=== PATIENT | female | born 1945 | race Caucasian/White ===

== ENCOUNTER 2016-04-30 00:06 | Inpatient (IN) | payer MEDICARE, MEDICAID ==
[~2016-04-30] VITALS: Ht 160 cm; Wt 69.5 kg
[2016-04-30] VITALS (12 sets, daily range): BP systolic 110–152; BP diastolic 60–74; PULSE 67–84; RESP 17–18; TEMP 95.2–98.4; O2SAT 92–100
[~2016-04-30 00:06] MED LIST: ATOR20TA15 PO; BENA25CA2 PO; CALC1TAB87 PO; CHOL50008 PO; FURO1TAB62 PO; OMEP20CA2 PO; POTA10TA2 PO; folate
[2016-04-30] MEDS ORDERED: FOLI1TAB4 PO (00:20)
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
[2016-04-30] MEDS ORDERED: ONDANSETRON HCL 4 MG/2 ML VIAL IV PUSH ONE ×2 (00:30→12:00)
[2016-04-30] MEDS ORDERED: SODIUM CHLOR 0.9% 1000 ML INJ 1,000 ML IV SCH (00:30)
[2016-04-30] MEDS ORDERED: MORPHINE SULFATE 4 MG/ML INJ IV PUSH ONE ×2 (00:30→02:00)
[2016-04-30 01:00] LABS: BASOPHIL # 0.1 TH/MM3 (0-0.2); BASOPHIL % 0.4 % (0.0-2.0); EOSINOPHIL # 0.1 TH/MM3 (0-0.4); EOSINOPHIL % 0.5 % (0.0-4.0); HEMATOCRIT 39.3 % (35.0-46.0); HEMO FLAGS DIFF FINAL; LYMPH % 5.9 % (9.0-44.0); MEAN CELL VOLUME 81.6 FL (80.0-100.0); MEAN CORPUSCULAR HEMOGLOBIN 28.3 PG (27.0-34.0); MEAN CORPUSCULAR HGB CONC 34.7 % (32.0-36.0); MONO % 5.3 % (0.0-8.0); NEUT % 87.9 % (16.0-70.0); PLATELET COUNT 244 TH/MM3 (150-450); RED BLOOD COUNT 4.82 MIL/MM3 (4.00-5.30); RED CELL DISTRIBUTION WIDTH 15.8 % (11.6-17.2); WHITE BLOOD COUNT 17.1 TH/MM3 (4.0-11.0)
[2016-04-30 01:07] LABS: APTT (PATIENT) 26.4 SEC (24.3-30.1); INTERNATIONAL NORMALIZED RATIO 0.9 RATIO; PROTHROMBIN TIME - PATIENT 9.9 SEC (9.8-11.6)
[2016-04-30 01:09] LABS: BICARBONATE 22.6 MEQ/L (21.0-32.0); MAGNESIUM 1.9 MG/DL (1.5-2.5); POTASSIUM 3.7 MEQ/L (3.5-5.1)
--- NOTE | 2016-04-30 01:24 | RADRPT ---
EXAM DATE/TIME: 04/30/2016 00:48 [facility] COMPARISON: CT NEEDLE BIOPSY LUNG, RIGHT, October 31, 2014, 11:45. CT NEEDLE BIOPSY BONE MARROW, November 22, 2014, 11: 13. CHEST SINGLE AP, November 17, 2014, 20:00. INDICATIONS : Shortness of breath. MEDICAL HISTORY : Hypercholesterolemia. Chronic obstructive pulmonary disease. Small cell right lung cancer. GERD Asth ma, Arthritis SURGICAL HISTORY : Hysterectomy. Oophorectomy ENCOUNTER: Initial ACUITY: 1 day PAIN SCORE: 0/10 LOCATION: Bilateral chest FINDINGS: A single AP supine view of the chest demonstrates the lungs to be symmetrically aerated without evide nce of infiltrate or effusion. There is stable interstitial change consistent with scarring. The prev iously noted masslike opacity in the right midlung is not significantly changed and measures approxim ately 3.5 x 3.5 cm. There are no new infiltrates or effusions. The cardiomediastinal contours are unr emarkable. Osseous structures are stable in appearance with scoliosis and mild degenerative change. CONCLUSION: 1. Focal masslike area of opacity again noted in the right midlung without significant change. 2. No new infiltrates or effusions. 3. Chronic scarring. Noe Rodas MD on April 30, 2016 at 1:20 Board Certified Radiologist. This report was verified electronically.
--- NOTE | 2016-04-30 01:27 | RADRPT ---
EXAM DATE/TIME: 04/30/2016 00:48 [facility] COMPARISON: No previous studies available for comparison. INDICATIONS : Left hip pain after fall. MEDICAL HISTORY : Hypercholesterolemia. Chronic obstructive pulmonary disease. Carcinoma, lung. Arthritis, Asthma, GERD SURGICAL HISTORY : Hysterectomy. Oophorectomy ENCOUNTER: Initial ACUITY: 1 day PAIN SCORE: 10/10 LOCATION: Left pelvis FINDINGS: AP and crosstable lateral views of the left hip were obtained and demonstrate a left subcapital hip f racture. There is mild superior migration of the femur with rotation of the humeral head component. T here is diffuse osteopenia. The pubic rami are intact. CONCLUSION: Left subcapital hip fracture. Noe Rodas MD on April 30, 2016 at 1:24 Board Certified Radiologist. This report was verified electronically.
--- NOTE | 2016-04-30 01:29 | RADRPT ---
EXAM DATE/TIME: 04/30/2016 01:00 [facility] COMPARISON: HIP LEFT (AP&LAT 2/3VWS) W AP PELVIS, April 30, 2016, 0:48. INDICATIONS : Left femur pain after fall. MEDICAL HISTORY : Hypercholesterolemia. Chronic obstructive pulmonary disease. Carcinoma, lung. GERD, Arthritis, As thma SURGICAL HISTORY : Hysterectomy. Oophorectomy ENCOUNTER: Initial ACUITY: 1 day PAIN SCORE: 10/10 LOCATION: Left femur FINDINGS: AP and lateral views of the left femur were obtained and again demonstrate the subcapital hip fractur e. The femur is otherwise intact. Soft tissues appear unremarkable. CONCLUSION: No additional bony abnormality. Noe Rodas MD on April 30, 2016 at 1:27 Board Certified Radiologist. This report was verified electronically.
[2016-04-30] MEDS ORDERED: HYDROmorphone HCL PF 1 MG/ML VIAL IV PUSH ONE (02:30)
[2016-04-30] MEDS ORDERED: ACETAMINOPHEN 325 MG TAB PO PRN (04:15)
[2016-04-30] MEDS ORDERED: SODIUM CHLORIDE 0.9% FLUSH 5 ML FLUSH FLUSH PRN (04:15)
[2016-04-30] MEDS: DOCUSATE SODIUM 100 MG CAP PO SCH ×2 (04:15→16:15)
[2016-04-30] MEDS ORDERED: BISACODYL 10 MG SUPP PR PRN (04:15)
[2016-04-30] MEDS ORDERED: RESP: ALBUTEROL 2.5 MG/IPRATROPIUM 0.5 MG NEB (PRN) NEB (04:45)
[2016-04-30] MEDS ORDERED: Vancomycin Consult Pharmacy 1 EA OTHER SCH (04:45)
[2016-04-30] MEDS ORDERED: metroNIDAZOLE 500 MG INJ 100 ML IV SCH (05:00)
[2016-04-30] MEDS: SODIUM CHLOR 0.45% 1000 ML INJ 1,000 ML IV SCH ×3 (05:02→20:24)
--- NOTE | 2016-04-30 05:05 | HHI.HP ---
[facility] Christen Mayfield MD Admission Diagnosis Left hip fracture Diagnoses: Chief Complaint: Syncope, fall, left hip pain Travel History International Travel<30 Days: No Contact w/Intl Traveler <30 Da: No Traveled to Known Affected Are: No History of Present Illness This is a 70-year-old female with past medical history significant for lung cancer status post chemotherapy and radiation therapy. Patient presents after a syncopal episode. Patient states she was getting out of her car when she stood up, felt dizzy and then fell backwards. The patient denies LOC, denies hitting her head. Apparently the patient got out of the vehicle, tender to shut the door when she lost her balance and the backwards and have any median 10 /10 over her left hip. The patient reports severe left hip pain and is unable to move it. Moving the extremity makes it worst, IV morphine given by emergency physicians improves the pain. Patient is noted to be coughing but denies fevers or chills. The patient also denies diarrhea, chest pain, shortness of breath. Patient is somewhat lethargic at the moment of interview. The patient states she feels somewhat nauseous and denied any urinary symptoms. Review of Systems Other As per history of present illness, other systems reviewed by me and negative Past Family Social History Past Medical History 1. Lung cancer status post chemotherapy and radiation therapy. 2. History of balance problems. 3. Tries weakness. 4. Hyperlipidemia. 5. Tobacco abuse. 6. Osteoarthritis. 7. Myelopathy. 8. Polymyalgia rheumatica. 9. Diminished hearing in the right ear. 10. COPD. 11. GERD. Past Surgical History 1. Partial hysterectomy. Reported Medications Lasix (Furosemide) 20 Mg Tab 20 Mg PO DAILY PRN Atorvastatin (Atorvastatin Calcium) 20 Mg Tab 20 Mg PO HS Omeprazole 20 Mg Cap 1 Cap PO DAILY Potassium Chloride ER (Potassium Chloride) 10 Meq Tab 10 Meq PO DAILY Folate (Folic Acid) 1 Mg Tab 1 Mg PO DAILY Vitamin D3 (Cholecalciferol) 5,000 Unit Tab 5,000 Units PO DAILY Calcium 600 with Vitamin D (Calcium Carbonate-Cholecalciferol) 600-400 mg-Unit Tab 1 Tab PO DAILY Allergies: Coded Allergies: Aspirin (Verified Allergy, Severe, GASTRIC UPSET, 04/30/16) Active Ordered Medications Current Medications Medications (Trade) Dose Ordered Sig/Sergey Route Start Time Stop Time Status Last Admin (05/06 NS 1000 ml Inj) 1,000 ml @ 75 mls/hr [id number] IV 04/30/16 04:01 (NS Flush) 2 ml UNSCH PRN FLUSH 04/30/16 04:15 (NS Flush) 2 ml BID FLUSH 04/30/16 09:00 (Tylenol) 650 mg Q4H PRN PO 04/30/16 04:15 (Dulcolax Supp) 10 mg DAILY PRN CA 04/30/16 04:15 (Colace) 100 mg Q12H PO 04/30/16 04:15 (Milk Of Magnesia Liq) 30 ml Q12H PRN PO 04/30/16 04:15 (Lipitor) 20 mg HS PO 04/30/16 21:00 (Protonix) 20 mg DAILY PO 04/30/16 09:00 Family History Is family history of lung cancer in the patient's mother. Social History Patient smokes one pack per day Denies alcohol Physical Exam Vital Signs Vital Signs Date Time Temp Pulse Resp B/P Pulse Ox O2 Delivery O2 Flow Rate FiO2 04/30/16 00:13 86 18 93 Room Air 04/30/16 00:10 84 18 141/71 92 Physical Exam GENERAL: This is a very thin, malnourished female. Not in respiratory distress. Very lethargic. SKIN: No rashes, ecchymoses or lesions. Warm and dry. HEAD: Atraumatic. Normocephalic. No temporal or scalp tenderness. EYES: Pupils equal round and reactive. Extraocular motions intact. No scleral icterus. No injection or drainage. ENT: Nose without bleeding, purulent drainage or septal hematoma. Throat without erythema, tonsillar hypertrophy or exudate. Uvula midline. Airway patent. NECK: Trachea midline. No JVD or lymphadenopathy. Supple, nontender, no meningeal signs. CARDIOVASCULAR: Regular rate and rhythm without murmurs, gallops, or rubs. RESPIRATORY: Clear to auscultation. Decreased breath sounds bilaterally. No wheezes, rales, or rhonchi. GASTROINTESTINAL: Abdomen soft, non-tender, nondistended. No hepato-splenomegaly , or palpable masses. No guarding. MUSCULOSKELETAL: Extremities without clubbing, cyanosis, or edema. No joint tenderness, effusion, or edema noted. No calf tenderness. Negative Homans sign bilaterally. NEUROLOGICAL: Lethargic. Difficult to assess cranial nerves, grossly intact. Motor and sensory grossly within normal limits. Five out of 5 muscle strength in all muscle groups. Normal speech. Laboratory Laboratory Tests Test 04/30/16 00:45 White Blood Count 17.1 Red Blood Count 4.82 Hemoglobin 13.7 Hematocrit 39.3 Mean Corpuscular Volume 81.6 Mean Corpuscular Hemoglobin 28.3 Mean Corpuscular Hemoglobin 34.7 Concent Red Cell Distribution Width 15.8 Platelet Count 244 Mean Platelet Volume 7.3 Neutrophils (%) (Auto) 87.9 Lymphocytes (%) (Auto) 5.9 Monocytes (%) (Auto) 5.3 Eosinophils (%) (Auto) 0.5 Basophils (%) (Auto) 0.4 Neutrophils # (Auto) 15.0 Lymphocytes # (Auto) 1.0 Monocytes # (Auto) 0.9 Eosinophils # (Auto) 0.1 Basophils # (Auto) 0.1 CBC Comment DIFF FINAL Differential Comment Prothrombin Time 9.9 Prothromb Time International 0.9 Ratio Activated Partial 26.4 Thromboplast Time Sodium Level 130 Potassium Level 3.7 Chloride Level 97 Carbon Dioxide Level 22.6 Anion Gap 10 Blood Urea Nitrogen 12 Creatinine 0.67 Estimat Glomerular Filtration 87 Rate Random Glucose 124 Calcium Level 8.9 Magnesium Level 1.9 Result Diagram: 04/30/16 0045 04/30/16 0045 Imaging Last Impressions Femur X-Ray 04/30/16 0050 Signed Impressions: Service Date/Time: Saturday, April 30, 2016 01:00 - CONCLUSION: No additional bony abnormality. Noe Rodas MD Chest X-Ray 04/30/16 0028 Signed Impressions: Service Date/Time: Saturday, April 30, 2016 00:48 - CONCLUSION: 1. Focal masslike area of opacity again noted in the right midlung without significant change. 2. No new infiltrates or effusions. 3. Chronic scarring. Noe Rodas MD Hip and Pelvis X-Ray 04/30/16 0025 Signed Impressions: Service Date/Time: Saturday, April 30, 2016 00:48 - CONCLUSION: Left subcapital hip fracture. Noe Rodas MD Chest x-ray reviewed by me EKG shows sinus rhythm with a ventricular rate of 83 bpm. No STT changes. Reviewed by me. Assessment and Plan Assessment and Plan 1. Dizziness/fall: Suspect patient has right sided pneumonia. Given the patient is returning chemotherapy possible age. Suspect orthostatic hypotension , patient is very dehydrated. EKG does not show any ST-T abnormalities. However at this time I cannot rule out other causes of syncope. I will order a 2-D echocardiogram, follow-up cardiac enzymes which were initially negative. Check cardiac ultrasound. Check CT scan of the head. Patient might need an MRI to rule out metastasis to the brain. Urinalysis negative. Hold Lasix for dehydration. 2. Encephalopathy: Patient very lethargic, continue to monitor neurological status. Encephalopathy could be secondary to IV morphine, cannot rule out metabolic encephalopathy. 3. Left subcapital hip fracture: Patient status post fall. If he physician communicated with the orthopedic surgeon sales promotion officer who requested to place the patient nothing by mouth and consult Dr. Sawyer in a.m. 4. Hyponatremia: Likely due to decreased oral intake. Hypovolemic hyponatremia. Start the patient on IV normal saline and monitor sodium. 5. Suspected pneumonia: Patient with cough, leukocytosis up to 17. Patient noted to be satting 92-93% on room air earlier today. Patient also noted to be coughing and having a wet cough. I will empirically start the patient on IV vancomycin, IV cefepime and IV Flagyl to cover H CAP and postobstructive pneumonia. I will order also a CT of the chest to better assess. 6. Hyperglycemia: Likely secondary to stress. Check hemoglobin A1c. Monitor Accu-Cheks. 7. Lung cancer: Status post recent radiation therapy. We'll consult oncology. Dr. Avila has been taking care of the patient. 8. Leukocytosis: WBC up to 17, the patient is afebrile however just x-ray shows a mass with a probable infiltrate. Monitor CBC with differential. Discussed Condition With RN, ED physician. Physician Certification 2 Midnight Certification Type: Admission for Inpatient Services Order for Inpatient Services The services are ordered in accordance with Medicare regulations or non- Medicare payer requirements, as applicable. In the case of services not specified as inpatient-only, they are appropriately provided as inpatient services in accordance with the 2-midnight benchmark. Estimated LOS (days): 2 days is the estimated time the patient will need to remain in the hospital, assuming treatment plan goals are met and no additional complications. Post-Hospital Plan: SNF Skinny Brizuela MD Apr 30, 2016 05:05
--- NOTE | 2016-04-30 05:18 | RADRPT ---
EXAM DATE/TIME: 04/30/2016 04:39 [facility] COMPARISON: CHEST SINGLE AP, April 30, 2016, 0:48. INDICATIONS : Evaluate lung mass. RADIATION DOSE: 4.39 CTDIvol (mGy) MEDICAL HISTORY : Carcinoma, lung. Chronic obstructive pulmonary disease. Asthma SURGICAL HISTORY : Hysterectomy. ENCOUNTER: Initial ACUITY: 1 day PAIN SCALE: 0/10 LOCATION: chest TECHNIQUE: Volumetric scanning of the chest was performed. Using automated exposure control and adjustment of t he mA and/or kV according to patient size, radiation dose was kept as low as reasonably achievable to obtain optimal diagnostic quality images. FINDINGS: LUNGS: The lungs are mildly hyperinflated with underlying emphysema. There is a pleural-based Mass.-like are a of dense consolidative opacity in the posterior right upper lobe. PLEURAE: There is no pleural thickening or pleural effusion. MEDIASTINUM: The heart and great vessels demonstrate no acute abnormality. There is no mediastinal or hilar lymph adenopathy. Coronary artery calcifications are present. There is a retrocardiac hiatal hernia. AXILLAE: Within normal limits. No lymphadenopathy. MUSCULOSKELETAL: Osteopenia, degenerative change and scoliosis are present. MISCELLANEOUS: The visualized upper abdominal organs demonstrate no acute abnormality. CONCLUSION: 1. Pleural-based masslike area of consolidative opacity in the posterior right upper lobe. 2. A small hiatal hernia. 3. Coronary artery calcifications. Noe Rodas MD on April 30, 2016 at 5:13 Board Certified Radiologist. This report was verified electronically.
[2016-04-30] MEDS ORDERED: HYDROmorphone HCL PF 1 MG/ML VIAL IV PUSH PRN (06:00)
[2016-04-30] MEDS ORDERED: MORPHINE SULFATE 4 MG/ML INJ IV PUSH PRN ×3 (06:00→13:45)
--- NOTE | 2016-04-30 06:46 | RADRPT ---
EXAM DATE/TIME: 04/30/2016 06:33 [facility] COMPARISON: CT BRAIN W/O CONTRAST, November 17, 2014, 19:49. INDICATIONS : Dizziness. RADIATION DOSE: 33.44 CTDIvol (mGy) MEDICAL HISTORY : Carcinoma, lung. SURGICAL HISTORY : Hysterectomy. ENCOUNTER: Initial ACUITY: 1 day PAIN SCALE: 0/10 LOCATION: cranial TECHNIQUE: Multiple contiguous axial images were obtained of the head. Using automated exposure control and adj ustment of the mA and/or kV according to patient size, radiation dose was kept as low as reasonably a chievable to obtain optimal diagnostic quality images. FINDINGS: CEREBRUM: The ventricles are normal for age. No evidence of midline shift, mass lesion, hemorrhage or acute in farction. No extra-axial fluid collections are seen. POSTERIOR FOSSA: The cerebellum and brainstem are intact. The 4th ventricle is midline. The cerebellopontine angle i s unremarkable. EXTRACRANIAL: The visualized portion of the orbits is intact. SKULL: The calvaria is intact. No evidence of skull fracture. CONCLUSION: Stable noncontrast head CT with no evidence of hemorrhage or stroke. Noe Rodas MD on April 30, 2016 at 6:44 Board Certified Radiologist. This report was verified electronically.
[2016-04-30] MEDS ORDERED: METOPROLOL TARTRATE 25 MG TAB PO PRN (07:00)
[2016-04-30] MEDS: SODIUM CHLORID 0.9% 500 ML IV SCH ×2 (07:00→23:40)
[2016-04-30] MEDS: LACTATED RINGER'S 1000 ML IV SCH (07:00)
[2016-04-30] MEDS ORDERED: INSULIN HUMAN REGULAR 1,000 UNITS/10 ML VIAL SQ PRN (07:00)
--- NOTE | 2016-04-30 07:28 | PD.ORT.PN ---
Subjective Subjective Remarks s/p fall while getting out of car left hip pain. sleepy. Objective Vitals Vital Signs Date Time Temp Pulse Resp B/P Pulse Ox O2 Delivery O2 Flow Rate FiO2 04/30/16 06:26 98.2 72 18 143/70 100 Nasal Cannula 2 04/30/16 05:52 100 Nasal Cannula 2.00 04/30/16 05:44 100 Nasal Cannula 2 04/30/16 05:38 18 04/30/16 05:37 18 04/30/16 05:37 18 04/30/16 05:00 98.4 79 18 124/60 100 Nasal Cannula 2 04/30/16 00:13 86 18 93 Room Air 04/30/16 00:10 84 18 141/71 92 Result Diagram: 04/30/16 0045 04/30/16 0045 Other Results Laboratory Tests Test 04/30/16 00:45 Prothrombin Time 9.9 SEC (9.8-11.6) Prothromb Time International 0.9 RATIO Ratio Imaging Last 24 hours Impressions Femur X-Ray 04/30/16 0050 Signed Impressions: Service Date/Time: Saturday, April 30, 2016 01:00 - CONCLUSION: No additional bony abnormality. Noe Rodas MD Chest X-Ray 04/30/16 0028 Signed Impressions: Service Date/Time: Saturday, April 30, 2016 00:48 - CONCLUSION: 1. Focal masslike area of opacity again noted in the right midlung without significant change. 2. No new infiltrates or effusions. 3. Chronic scarring. Noe Rodas MD Hip and Pelvis X-Ray 04/30/16 0025 Signed Impressions: Service Date/Time: Saturday, April 30, 2016 00:48 - CONCLUSION: Left subcapital hip fracture. Noe Rodas MD Head CT 04/30/16 0000 Signed Impressions: Service Date/Time: Saturday, April 30, 2016 06:33 - CONCLUSION: Stable noncontrast head CT with no evidence of hemorrhage or stroke. Noe Rodas MD Chest CT 04/30/16 0000 Signed Impressions: Service Date/Time: Saturday, April 30, 2016 04:39 - CONCLUSION: 1. Pleural-based masslike area of consolidative opacity in the posterior right upper lobe. 2. A small hiatal hernia. 3. Coronary artery calcifications. Noe Rodas MD Objective Remarks LLE: pain with movement of hip. good dorsiflexion and sensation of foot Assessment & Plan Assessment and Plan 1) Left Femoral Neck fx -sign consents -npo -surgery today Santy Neely Apr 30, 2016 07:28
[2016-04-30 07:38] LABS: BACTERIA, URINE OCC /hpf; BLOOD, URINE SMALL (NEG); CALCIUM OXALATE CRYSTALS,URINE OCC /hpf; GLUCOSE,URINE NEG (NEG); HYALINE CAST, URINE 1 /lpf (RARE); KETONE, URINE NEG (NEG); MUCUS URINE FEW /lpf (OCC); NITRITE,URINE NEG (NEG); PH, URINE 5.5 (5.0-8.5); URINE COLOR YELLOW (YELLW/STRAW)
[2016-04-30 07:41] LABS: COMMENT (UR) CULT NOT INDICATED; CULTURE IF INDICATED CULT NOT INDICATED
[2016-04-30] MEDS: LEVOFLOXACIN 750 MG PREMIX INJ 150 ML IV SCH (08:00)
[2016-04-30] MEDS ORDERED: VANCOMYCIN INJ 1,250 MG in SODIUM CHLOR 0.9% 250 ML INJ 250 ML IV SCH (08:00)
--- NOTE | 2016-04-30 08:35 | MB ---
cc: NIDHI BARTH MD DATE OF 1945 DATE OF CONSULTATION 04/30/2016 CONSULT REQUESTED BY [facility] Hospitalist Service. 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 CURRENT DISEASE STATUS She had been in remission based on restaging imaging scans, she did have a right upper lobe lung nodule which required stereotactic body radiation treatments (SBRT) which was delivered in mid-April 2016 under the care of Dr. Maier. CHIEF COMPLAINT The patient reports falling while trying to get out of her car. She fell backwards and subsequently fractured her left femoral head (subcapital fracture). This morning her major complaint is that of pain in her hip and nausea. HISTORY OF PRESENT ILLNESS Ms. Love is a pleasant 70-year-old female who is well-known to me. Ms. Love has been under my care since her initial diagnosis of small cell carcinoma of the lung which dates back to September of 2012. She was initially referred to me after she was found to have a large right mid-lung mass; this mass was biopsied and pathologic findings were consistent with small cell carcinoma. Staging studies revealed no evidence of metastasis. She was assessed to have limited stage small cell cancer of the lung and was treated initially with carboplatin and etoposide. She completed six cycles and subsequently underwent consolidative radiation to her thoracic disease and then prophylactic whole brain radiation as well. She remained on observation after that and I believe in the summer there was concern of a right lower lobe pleural-based density which was growing. Differential diagnoses included recurrent disease versus radiation-related scarring. CT guided biopsy of the right lower lobe pleural-based mass was performed in October of 2014 and there was no evidence of malignancy. She remained on surveillance after that. In the interim she was diagnosed with polymyalgia rheumatica which was effectively treated with prednisone and restaging scans from March 2016 indicated a left upper lobe lung nodule which was progressively growing and had some mild metabolic activity associated with it. This was treated with SBRT by Dr. Maier in April of 2016. She continues to smoke unfortunately and has had some functional decline over the years but overall continues to do reasonably well. PAST MEDICAL HISTORY 1. Limited stage small cell carcinoma of the lung (right middle lobe). 2. Left upper lung nodule which was treated with stereotactic radiation. 3. Ongoing tobacco abuse. 4. Polymyalgia rheumatica. 5. Arthritis. 6. Hyperlipidemia. 7. Peptic ulcer disease. 8. COPD. PAST SURGICAL HISTORY 1. Bone marrow biopsy at some point in the past. 2. Bronchoscopy with endobronchial biopsies in September of 2012. 3. Colonoscopy. 4. CT-guided biopsy of right lower lobe pleural-based mass in October of 2014. 5. EGD. 6. Infusion port placement and removal. 7. Lumbar puncture. 8. Partial hysterectomy. GYNECOLOGIC HISTORY 6, para 5. Postmenopausal. No history of contraception or hormone replacement therapy. FAMILY HISTORY Parents are both . They both had complications of diabetes. SOCIAL HISTORY The patient is . She presently lives locally with her son. She has two daughters in the area as well. She continues to smoke. Over the course of the past 50 years, she smoked on average about 1-1/2 packs per day which amounts to a 75 pack-year history of smoking. Drinking History: She previously was a drinker. She has a generally sedentary lifestyle. ALLERGIES ASPIRIN which causes nausea and vomiting. CURRENT INPATIENT MEDICATIONS 1. Lactated Ringer's. 2. Levofloxacin 750 mg IV q. 24 hours. 3. Vancomycin 1250 mg IV q. 18 hours. 4. Tylenol 650 mg p.o. q. Hours as needed for temperature greater than 100.4 degrees Fahrenheit. 5. Albuterol/ipratropium nebulized every 6 hours. 6. Pravastatin 20 mg p.o. q.h.s. 7. Colace 100 mg p.o. q. 12 hours. 8. Dilaudid 3.5 mg IV q. 4 hours as needed for breakthrough pain. 9. Insulin sliding scale per protocol. 10. Milk of Magnesia 30 mL q. 12 hours as needed for constipation. 11. Metoprolol 25 mg as needed. 12. Zofran 12 mg IV q. 6 hours as needed for nausea and vomiting. REVIEW OF SYSTEMS A 13-point review of systems is obtained. The following are the pertinent positives and negatives: CONSTITUTIONAL: The patient reports fatigue, weakness. She also reports major complaint of pain in her left hip. HEAD, EYES, EARS, NOSE, AND THROAT: She denies headaches, blurry vision, difficulty swallowing, soreness in the throat. RESPIRATORY: Denies cough, pleuritic chest pain or hemoptysis. She reports chronic exertional dyspnea. She continues to smoke. CARDIOVASCULAR: Denies angina-like chest pain, PND, orthopnea, lower extremity swelling. GI: Reports nausea. Denies vomiting. Reports decreased appetite. Denies diarrhea, hematochezia or melena. No other complaints. PHYSICAL EXAMINATION: VITAL SIGNS: Dated 04/30/2016 at 6:30 a.m., temperature of 98.2 degrees Fahrenheit, heart rate 72 beats minute, respiratory rate 18, blood pressure 143/70, O2 sats were 100% on 2 liters nasal cannula. General/Physical Appearance: Ms. Love is an elderly female. She is laying in bed. She has an emesis basin on her lap. She appears to be uncomfortable but not acutely distressful. HEENT: Head is atraumatic, normocephalic. Conjunctivae are not pale. Sclerae are anicteric. EOMI. PERRLA. Oral exam - no pharyngeal erythema. NECK EXAM: Palpable cervical and supraclavicular lymphadenopathy. RESPIRATORY EXAM: On anterior examination she has decreased right basilar breath sounds, good air movement on the left side, prolonged expiratory phase. No rhonchi or rattles or rales. CARDIOPULMONARY: Tachycardic, regular. S1, S2. No obvious murmurs, rubs or gallops. ABDOMINAL EXAM: Thin belly, soft and nontender, nondistended. No palpable organ enlargement. LOWER EXTREMITIES: No pretibial edema. No calf tenderness. MAINTENANCE REPAIRMAN: No focal sensory or motor deficits. LABORATORY FINDINGS Blood work dated 04/30/2016 - WBC count 17, hemoglobin 13.7 grams/dL, hematocrit 39%, platelet count 244, absolute neutrophil count 15. Chemistries: Sodium 130, potassium 3.7, chloride 97, bicarbonate 22.6, BUN 12, creatinine 0.67, EGFR 87, random glucose 124, calcium 8.9, magnesium 1.9. IMAGING STUDIES CT scan of the thorax date 04/30/2016 indicates pleural-based mass-like area of consolidation involving the right posterior upper lobe; this appears unchanged from previous scans. Hiatal hernia. Coronary artery calcification. CT scan of the chest without contrast indicates no acute trauma. Hip/Pelvic x-ray dated 04/30/2016 - Reveals left subcapital hip fracture. ASSESSMENT Ms. Love is a 70-year-old female well-known to me since her initial diagnosis of limited stage small cell carcinoma of the right middle lobe of the lung in September of 2012. She was treated with carboplatin/etoposide for a total of 6 cycles followed by consolidative radiation to her thoracic disease followed by prophylactic whole brain radiation. Treatment was completed in the fall. She has remained in remission ever since. The right-sided pleural-based mass along the posterior aspect of the right upper lobe was biopsied in the summer and was found to be benign. This lesion on serial PET/CT scans has also shown to have low activity indicating this is most likely an artifact from her previous radiation versus the actual scarring from tumor. A new finding noted in the fall, however, was an enlarging left upper lobe lung nodule which was concerning for a second primary lung malignancy. This was treated with stereotactic radiation in April of 2016. Treatment was completed about a week ago and restaging imaging scans are pending in the early part of next year. Overall her disease, i.e. her small cell carcinoma of the lung, remains well controlled. Unfortunately, Ms. Love, despite having been diagnosed with a small cell carcinoma of the lung, continues to smoke, she remains at risk for second primary malignancies related to her smoking. She was admitted to the hospital yesterday after she fell and fractured her left femoral head/neck. RECOMMENDATIONS Small cell carcinoma of the lung: This individual remains in remission, she is a long-term survivor and has done better than would be expected given the extent of her disease at presentation. She will continue outpatient followup with me once she has recovered from her acute issues. I would recommend she be treated aggressively as with any other individual with a hip fracture. I will continue to follow this patient along at a distance. I see no acute oncologic or hematologic issue at present. Thank you very much for this consultation. MD ZAID Soliman/LYN /7:45 AM /8:03 AM
[2016-04-30] MEDS: SODIUM CHLORIDE 0.9% FLUSH 5 ML FLUSH FLUSH SCH ×2 (09:00→20:25)
[2016-04-30] MEDS: PANTOPRAZOLE SOD 20 MG DELAYED RELEASE TAB PO SCH (09:00)
[2016-04-30] MEDS ORDERED: GENTAMICIN SULFATE 80 MG/2 ML VIAL ONE (09:27)
[2016-04-30] MEDS ORDERED: TRANEXAMIC ACID INJ 1,005 MG in SODIUM CHLORIDE 0.9% INJ 100 ML IV SCH (09:30)
[2016-04-30] MEDS: RESP: ALBUTEROL 2.5 MG/IPRATROPIUM 0.5 MG NEB (SCH) NEB ×3 (10:00→20:58)
--- NOTE | 2016-04-30 10:55 | HHI.PR ---
Subjective Remarks Follow-up left subcapital hip fracture/small cell carcinoma of the lung/ pneumonia/toxic metabolic encephalopathy 04/30/16-patient seen and examined, alert and oriented 3. Patient states, she fell off yesterday as she was getting out of a car. Currently nothing by mouth pending hip fracture repair. Objective Vitals Vital Signs Date Time Temp Pulse Resp B/P Pulse Ox O2 Delivery O2 Flow Rate FiO2 04/30/16 08:00 96.1 73 18 152/74 96 04/30/16 06:26 98.2 72 18 143/70 100 Nasal Cannula 2 04/30/16 05:52 100 Nasal Cannula 2.00 04/30/16 05:44 100 Nasal Cannula 2 04/30/16 05:38 18 04/30/16 05:37 18 04/30/16 05:37 18 04/30/16 05:00 98.4 79 18 124/60 100 Nasal Cannula 2 04/30/16 00:13 86 18 93 Room Air 04/30/16 00:10 84 18 141/71 92 Result Diagram: 04/30/16 0045 04/30/16 0045 Imaging Last Impressions Femur X-Ray 04/30/16 0050 Signed Impressions: Service Date/Time: Saturday, April 30, 2016 01:00 - CONCLUSION: No additional bony abnormality. Noe Rodas MD Chest X-Ray 04/30/16 0028 Signed Impressions: Service Date/Time: Saturday, April 30, 2016 00:48 - CONCLUSION: 1. Focal masslike area of opacity again noted in the right midlung without significant change. 2. No new infiltrates or effusions. 3. Chronic scarring. Noe Rodas MD Hip and Pelvis X-Ray 04/30/16 0025 Signed Impressions: Service Date/Time: Saturday, April 30, 2016 00:48 - CONCLUSION: Left subcapital hip fracture. Noe Rodas MD Head CT 04/30/16 0000 Signed Impressions: Service Date/Time: Saturday, April 30, 2016 06:33 - CONCLUSION: Stable noncontrast head CT with no evidence of hemorrhage or stroke. Noe Rodas MD Chest CT 04/30/16 0000 Signed Impressions: Service Date/Time: Saturday, April 30, 2016 04:39 - CONCLUSION: 1. Pleural-based masslike area of consolidative opacity in the posterior right upper lobe. 2. A small hiatal hernia. 3. Coronary artery calcifications. Noe Rodas MD Objective Remarks GENERAL: No acute distress SKIN: Warm and dry. HEAD: Normocephalic. EYES: No scleral icterus. No injection or drainage. NECK: Supple, trachea midline. No JVD or lymphadenopathy. CARDIOVASCULAR: Regular rate and rhythm without murmurs, gallops, or rubs. RESPIRATORY: Breath sounds equal bilaterally. No accessory muscle use. GASTROINTESTINAL: Abdomen soft, non-tender, nondistended. MUSCULOSKELETAL: No cyanosis, or edema. Left hip tender to palpation with decreased range of motion BACK: Nontender without obvious deformity. No CVA tenderness. A/P Problem List: (1) Closed left hip fracture ICD Code: S72.002A Status: Acute (2) Small cell lung cancer ICD Code: C34.90 Status: Acute (3) Toxic metabolic encephalopathy ICD Code: G92 Status: Acute (4) Pneumonia ICD Code: J18.9 Status: Acute Assessment and Plan 70-year-old female with 1Toxic metabolic encephalopathy: Resolved. Head CT noted without any acute finding. 2Left subcapital hip fracture: Status post mechanical fall, hip x-ray with finding of Left subcapital hip fracture for which orthopedic surgery has been consulted and plan for repair today 04/30/16. DVT post prophylaxis per orthopedic surgery 3suspected pneumonia: Currently on IV Flagyl, Levaquin and vancomycin, however patient afebrile with leukocytosis now resolution of encephalopathy, we de- escalate antibiotics and continuing only Levaquin. Maintain oxygen saturation above 92%, DuoNeb when necessary. 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 Patient advised on tobacco cessation 5Mild hyponatremia: Continue with gentle IV fluid hydrations and monitor electrolyte 6Hyperglycemia: Likely secondary to stress. Check hemoglobin A1c. Monitor Accu-Cheks. DVT prophylaxis: Per orthopedic surgery postprocedure Problem Qualifiers (1) Closed left hip fracture: Qualified Code: S72.002A - Closed left hip fracture, initial encounter Stanislaw Robertson MD Apr 30, 2016 10:55 communicated with the orthopedic surgeon senior instrumentation engineer who requested to place the patient nothing by mouth and consult Dr. Sawyer in a.m. 4. Hyponatremia: Likely due to decreased oral intake. Hypovolemic hyponatremia. Start the patient on IV normal saline and monitor sodium. 5. Suspected pneumonia: Patient with cough, leukocytosis up to 17. Patient noted to be satting 92-93% on room air earlier today. Patient also noted to be coughing and having a wet cough. I will empirically start the patient on IV vancomycin, IV cefepime and IV Flagyl to cover H CAP and postobstructive pneumonia. I will order also a CT of the chest to better assess. 6. Hyperglycemia: Likely secondary to stress. Check hemoglobin A1c. Monitor Accu-Cheks. 7. Lung cancer: Status post recent radiation therapy. We'll consult oncology. Dr. Avila has been taking care of the patient. 8. Leukocytosis: WBC up to 17, the patient is afebrile however just x-ray shows a mass with a probable infiltrate. Monitor CBC with differential. Problem Qualifiers (1) Closed left hip fracture: Qualified Code: S72.002A - Closed left hip fracture, initial encounter Stanislaw Robertson MD Apr 30, 2016 10:55
[2016-04-30] MEDS ORDERED: PROPOFOL 200 MG/20 ML AMP IV ONE (12:00)
[2016-04-30] MEDS ORDERED: NEOSTIGMINE 3 MG/3 ML SYR IV ONE (12:00)
[2016-04-30] MEDS ORDERED: ceFAZolin INJ 1,000 MG VIAL ONE (12:10)
[2016-04-30] MEDS ORDERED: ACETAMINOPHEN 1000 MG/100 ML VIAL IV ONE (13:31)
--- NOTE | 2016-04-30 13:42 | PD.OP ---
cc: Brian Sawyer MD Operative Report Date of Surgery: Apr 30, 2016 Preoperative Diagnosis: Displaced left femoral neck fracture Postoperative Diagnosis: Same Procedure: Left hip hemiarthroplasty Anesthesia: Gen. Surgeon: Brian Sawyer Manual Equipment Mechanic(s): ROGER Plaza PA-C The surgical procedure was assisted by my physician observation assistant. My P.A. presence was necessary throughout this case for the manipulation and positioning of the surgical extremity. My P.A. was assisting me throughout the duration of this procedure. The skill set of a physician observation assistant was medically necessary to complete this procedure. During the surgical case the surgical endoscopist was working at the back table and the physician observation assistant was directly assisting me. Operation and Findings: PLAN OF ACTIVITY Weight bear as tolerated. IMPLANTS USED DePuy Corail size [14] stem with size [46] bipolar head and [standard +1.5] neck. DRAIN: 7 mm Arnold-Joseph drain DETAILS OF PROCEDURE This patient was brought into the operating room and placed on the OR table. The patient was given anesthesia. The patient received IV antibiotics. The patient was then placed in lateral decubitus position. The hip and leg were prepped with alcohol, followed by Hibiclens and draped in a usual sterile fashion. Clean air was used for this procedure. Time out procedure was performed. The procedure began with a 5 inch incision over the posterolateral hip. The subcutaneous tissue was dissected with the Bovie. The iliotibial band were split in line with fibers. The Charnley retractor was placed. The piriformis and external rotators were released from the femur and tagged with a #1 Vicryl suture. The capsule is now incised and tagged with #1 Vicryl. The femoral neck fracture was now visualized. A corkscrew was now used to remove the femoral head. The femoral head was sized and measured. Soft tissue was now protected. The hip skid was placed underneath the femoral neck. An oscillating saw was used to make a femoral neck cut. At this point attention was turned to preparation of the proximal femur. A box osteotome was used to remove the lateral cortex of the femoral neck. The T- handle reamer was used to open the femoral canal. Next, the canal was broached. A lateralizing reamer was used to help lateralize the prosthesis. At this point a trial head and neck were placed. The hip was reduced. The patient was found to have excellent stability with good range of motion. Trial components were removed. Soft tissue and bone were thoroughly irrigated. A Corail stem was now opened. The stem was now impacted into the proximal femur. Care was taken to keep appropriate anteversion. The head and neck were now impacted onto the stem. The hip was again reduced. The hip was found to have good range of motion and good stability. Leg lengths were clinically equal. The wound was thoroughly irrigated. The capsule, piriformis and iliotibial band were closed with #1 Vicryl. Subcutaneous tissue was closed with 3-0 Vicryl. The skin was closed with tomeka. A sterile dressing was applied with Primapore. The patient was placed into a knee immobilizer. The patient was awakened and transferred to the recovery room in stable condition. Needle and sponge counts were correct. Brian Sawyer MD Apr 30, 2016 13:42
[2016-04-30] MEDS ORDERED: Post-op Orders (for Pharmacy) MISC XX ONE (13:45)
[2016-04-30] MEDS ORDERED: SODIUM CHLORIDE 0.9% FLUSH 5 ML FLUSH IVF PRN (13:45)
[2016-04-30] MEDS ORDERED: ERGOCALCIFEROL (VIT D2) 50,000 UNIT CAP PO ONE (14:00)
--- NOTE | 2016-04-30 14:03 | MB ---
cc: REHAN HILL,RUBEN DATE OF CONSULTATION: 04/30/2016 REASON FOR CONSULTATION Left femoral neck fracture. CONSULTING PHYSICIAN Dr. Ruben Robertson HISTORY OF PRESENT ILLNESS Ms. Love is a 70-year-old female who has a history of lung cancer. She had a syncopal-type episode. She was getting out of a car and when she stood up she felt dizzy and fell. She landed on her left hip. She presented to the emergency room where x-rays revealed a displaced left femoral neck fracture. She is currently awake and alert on the sixth floor. She complains of left hip pain. Pain is worse with movement and is improved with rest. She has been unable to stand or ambulate. She has also had some mild nausea. PAST MEDICAL HISTORY ILLNESSES 1. Lung cancer. 2. Polymyalgia rheumatica. 3. COPD. 4. Reflux. 5. Tobacco use. 6. High cholesterol. MEDICATIONS 1. Lasix. 2. Atorvastatin. 3. Omeprazole. 4. Potassium. 5. Folic acid. 6. Vitamin-D. 7. Calcium. ALLERGIES ASPIRIN. FAMILY HISTORY Positive for lung cancer in her mother. SOCIAL HISTORY The patient smokes a pack a day. She denies alcohol or drug use. REVIEW OF SYSTEMS The patient denies headache, visual changes, neck pain, abdominal pain, recent weight loss, or numbness or tingling of extremities. She does have some mild nausea. She complains of left hip pain. PHYSICAL EXAMINATION GENERAL: The patient is a thin 70-year-old female who is awake and alert. She is alert and oriented x3. VITAL SIGNS: Temperature 96.1, pulse 73, respirations 18, blood pressure 152/74. O2 sat is 96% on two liters nasal cannula. HEAD: The patient is normocephalic. Pupils are equal. NECK: Soft, nontender. Trachea is midline. CHEST: Lungs are clear. HEART: The patient has regular rate and rhythm. ABDOMEN: Soft, nontender, nondistended. EXTREMITIES: Examination of bilateral upper extremities reveals no significant pain with shoulder, elbow or wrist motion. She has intact sensation in all fingers. She has good capillary refill in all fingers. Skin is intact. Radial pulses are palpable. [employer] strength is +5 bilaterally. Examination of the right leg reveals no pain with hip, knee or ankle motion. Skin is intact. Dorsalis pedis pulse is palpable. Sensation is grossly intact. Examination of the left leg reveals pain with any hip motion. She has no tenderness around her knee, tibia or ankle. Skin is intact. Dorsalis pedis pulse is palpable. X-RAYS X-rays of the left hip were reviewed. X-rays reveal a displaced left femoral neck fracture. IMPRESSION 1. Tobacco abuse. 2. Displaced left femoral neck fracture. 3. History of lung cancer. PLAN The treatment options were discussed with the patient. At this point I would recommend left hip hemiarthroplasty. The risks of surgery include bleeding, infection, injuries to arteries, nerves and blood vessels, nonunion, hip dislocation, leg length discrepancies, as well as medical complications including blood clot, stroke, heart attack and . All questions were answered. I will plan on surgery today. A mid-level provider in my office (nurse practitioner or physician corporate legal assistant) may see this patient on follow-up visits and continue to implement the objectives of this plan including: Starting or adjusting medications, injections , cast application, orthotics, brace application, physical therapy, radiological studies (including x-ray, MRI, CT, ultrasound, bone scan), vascular studies, neurologic studies, specialist consultation, and proceeding with surgical management, as appropriate. MD SUSAN Jimenez/JACKIE /1:36 PM /1:52 PM DEREK
[2016-04-30] MEDS ORDERED: fentaNYL CITRATE 250 MCG/5 ML AMP ONE (14:04)
[2016-04-30] MEDS ORDERED: DO NOT ADM ANY ANTICOAGULANT DRUGS XX PRN (14:15)
[2016-04-30] MEDS ORDERED: *morphine SULFATE 8 MG/ML PERIprocedure ONLY ONE (14:23)
[2016-04-30] MEDS ORDERED: *Lactated Ringer's INJ 1,000 ML ONE (14:32)
--- NOTE | 2016-04-30 15:04 | RADRPT ---
EXAM DATE/TIME: 04/30/2016 14:29 [facility] COMPARISON: No previous studies available for comparison. INDICATIONS : Post op left hip arthroplasty. MEDICAL HISTORY : Carcinoma, lung. Chronic obstructive pulmonary disease. Asthma. SURGICAL HISTORY : Hysterectomy. ENCOUNTER: Initial ACUITY: 1 day PAIN SCORE: Non-responsive. LOCATION: Left hip FINDINGS: A lateral view of the left hip with AP pelvis was obtained. Patient is status post left hip prosthesi s. The prosthesis is in good position and alignment. The bony structures are grossly intact. CONCLUSION: Good position and alignment on this postoperative study. Raghu Ochoa MD on April 30, 2016 at 15:01 Board Certified Radiologist. This report was verified electronically.
[2016-04-30] MEDS: ACETAMINOPHEN/HYDROcodone 325 MG/7.5 MG TAB PO PRN (19:12)
[2016-04-30] MEDS ORDERED: VANCOMYCIN 1,000 MG/NS 250 ML IV SCH ×2 (20:00)
[2016-04-30] MEDS: ATORVASTATIN 20 MG TAB PO SCH (20:25)
[2016-04-30] MEDS: ceFAZolin 2 GM PREMIX 50 ML IV SCH (20:25)
[2016-04-30] MEDS ORDERED: SODIUM CHLORIDE 0.9% FLUSH 5 ML FLUSH IVF SCH (21:00)
[2016-05-01] VITALS (9 sets, daily range): BP systolic 93–123; BP diastolic 52–61; PULSE 70–100; RESP 16–18; TEMP 96.9–97.6; O2SAT 94–99
[2016-05-01] MEDS: ceFAZolin 2 GM PREMIX 50 ML IV SCH ×2 (02:33→08:06)
[2016-05-01] MEDS: RESP: ALBUTEROL 2.5 MG/IPRATROPIUM 0.5 MG NEB (SCH) NEB ×4 (03:23→22:02)
[2016-05-01] MEDS: LEVOFLOXACIN 750 MG PREMIX INJ 150 ML IV SCH (06:00)
[2016-05-01] MEDS: ACETAMINOPHEN/HYDROcodone 325 MG/7.5 MG TAB PO PRN ×4 (06:35→21:03)
[2016-05-01] MEDS ORDERED: XARE10TA PO (06:37)
[2016-05-01] MEDS ORDERED: HYDR-3288 PO (06:37)
[2016-05-01] MEDS ORDERED: WALKER/ADULT/FO1 MIS (06:38)
--- NOTE | 2016-05-01 06:40 | PD.ORT.PN ---
Subjective Subjective Remarks POD 1 s/p left hip bipolar hemiarthroplasty doing well. pain controlled. has not been out of bed yet Objective Vitals Vital Signs Date Time Temp Pulse Resp B/P Pulse Ox O2 Delivery O2 Flow Rate FiO2 05/01/16 00:00 96.9 70 16 93/58 96 04/30/16 21:01 97 Nasal Cannula 2.00 04/30/16 20:00 96.6 67 17 110/60 98 04/30/16 16:01 97 Nasal Cannula 2.00 04/30/16 15:45 95.2 68 18 132/66 99 04/30/16 14:45 72 04/30/16 14:45 97.5 72 14 128/71 100 Nasal Cannula 2 04/30/16 14:30 72 14 125/71 98 Nasal Cannula 2 04/30/16 14:15 79 14 122/73 100 Nasal Cannula 2 04/30/16 14:00 75 04/30/16 14:00 75 14 118/69 98 Nasal Cannula 2 04/30/16 13:59 97.5 82 14 123/85 98 Nasal Cannula 2 04/30/16 08:00 96.1 73 18 152/74 96 I/O 04/30/16 04/30/16 04/30/16 05/01/16 05/01/16 05/01/16 07:00 15:00 23:00 07:00 15:00 23:00 Intake Total 1300 ml 240 ml Output Total 780 ml 900 ml 50 ml Balance 520 ml -660 ml -50 ml Intake Oral 0 ml 240 ml Other 1300 ml Output Urine Total 550 ml 900 ml Drainage Total 30 ml 50 ml Estimated Blood Loss 200 ml # Bowel Movements 0 Result Diagram: 04/30/16 0045 04/30/16 0045 Imaging Last 24 hours Impressions Femur X-Ray 04/30/16 0050 Signed Impressions: Service Date/Time: Saturday, April 30, 2016 01:00 - CONCLUSION: No additional bony abnormality. Noe Rodas MD Chest X-Ray 04/30/16 0028 Signed Impressions: Service Date/Time: Saturday, April 30, 2016 00:48 - CONCLUSION: 1. Focal masslike area of opacity again noted in the right midlung without significant change. 2. No new infiltrates or effusions. 3. Chronic scarring. Noe Rodas MD Hip and Pelvis X-Ray 04/30/16 0025 Signed Impressions: Service Date/Time: Saturday, April 30, 2016 00:48 - CONCLUSION: Left subcapital hip fracture. Noe Rodas MD Head CT 04/30/16 0000 Signed Impressions: Service Date/Time: Saturday, April 30, 2016 06:33 - CONCLUSION: Stable noncontrast head CT with no evidence of hemorrhage or stroke. Noe Rodas MD Chest CT 04/30/16 0000 Signed Impressions: Service Date/Time: Saturday, April 30, 2016 04:39 - CONCLUSION: 1. Pleural-based masslike area of consolidative opacity in the posterior right upper lobe. 2. A small hiatal hernia. 3. Coronary artery calcifications. Noe Rodas MD Objective Remarks LLE: dressing clean and dry. intact. NVI distally. + drain + knee brace Assessment & Plan Assessment and Plan 1) Left Femoral Neck fx s/p bipolar hemiarthroplasty - POD 1 -WBAT -posterior hip precautions -knee brace while in bed -DC drain with dressing change on POD 2 -daily dressing changes POD 2 -CM for rehab placement -f/u with Dipesh or [facility]GELA in 2 weeks Santy Neely May 01, 2016 06:40
[2016-05-01 06:41] LABS: AUTOMATED NEUTROPHIL # 6.4 TH/MM3 (1.8-7.7); BASOPHIL % 0.2 % (0.0-2.0); EOSINOPHIL % 0.1 % (0.0-4.0); HEMATOCRIT 32.7 % (35.0-46.0); HEMO FLAGS DIFF FINAL; LYMPH % 9.6 % (9.0-44.0); LYMPHOCYTE # 0.8 TH/MM3 (1.0-4.8); MEAN CELL VOLUME 82.4 FL (80.0-100.0); MEAN CORPUSCULAR HEMOGLOBIN 28.3 PG (27.0-34.0); MEAN CORPUSCULAR HGB CONC 34.4 % (32.0-36.0); MONO % 7.6 % (0.0-8.0); NEUT % 82.5 % (16.0-70.0); PLATELET COUNT 185 TH/MM3 (150-450); RED BLOOD COUNT 3.97 MIL/MM3 (4.00-5.30); RED CELL DISTRIBUTION WIDTH 16.1 % (11.6-17.2); WHITE BLOOD COUNT 7.8 TH/MM3 (4.0-11.0)
[2016-05-01 07:16] LABS: ALKALINE PHOSPHATASE 56 U/L (45-117); ALT (GPT) 13 U/L (10-53); ANION GAP 10 MEQ/L (5-15); AST (GOT) 19 U/L (15-37); BICARBONATE 23.2 MEQ/L (21.0-32.0); BLOOD UREA NITROGEN 6 MG/DL (7-18); CHLORIDE 99 MEQ/L (98-107); GLOMERULAR FILTRATION RATE 75 ML/MIN (>89); POTASSIUM 3.9 MEQ/L (3.5-5.1); SODIUM (NA) 132 MEQ/L (136-145); TOTAL BILIRUBIN ADULT 0.3 MG/DL (0.2-1.0)
--- NOTE | 2016-05-01 07:51 | EKG ---
Date Performed: 04/30/2016 Time Performed: 02:10:05 PTAGE: 70 years EKG: Sinus rhythm NORMAL ECG PREVIOUS TRACING : 11/17/2014 20.14 DOCTOR: Jm Adair Interpretating Date/Time 05/01/2016 07:46:09
[2016-05-01] MEDS: SODIUM CHLORIDE 0.9% FLUSH 5 ML FLUSH FLUSH SCH ×2 (08:06→20:59)
[2016-05-01] MEDS: PANTOPRAZOLE SOD 20 MG DELAYED RELEASE TAB PO SCH (08:06)
[2016-05-01] MEDS: CHOLECALCIFEROL (VIT D3) 5000 UNIT CAP PO SCH (08:06)
[2016-05-01] MEDS: DOCUSATE SODIUM 100 MG CAP PO SCH ×2 (08:06→20:59)
[2016-05-01] MEDS: ALUMINUM/MAGNESIUM/SIMETH 30 ML CUP PO PRN (09:01)
--- NOTE | 2016-05-01 13:04 | HHI.PR ---
Subjective Remarks Follow-up left subcapital hip fracture/small cell carcinoma of the lung/ pneumonia/toxic metabolic encephalopathy Patient reports that she is feeling better except for mild pain at the surgical site. Doing well otherwise. Objective Vitals Vital Signs Date Time Temp Pulse Resp B/P Pulse Ox O2 Delivery O2 Flow Rate FiO2 05/01/16 08:04 95 21 05/01/16 08:00 97.0 81 16 115/56 98 05/01/16 07:28 Nasal Cannula 2.00 05/01/16 07:25 77 05/01/16 04:00 97.6 83 17 100/52 95 05/01/16 00:00 96.9 70 16 93/58 96 04/30/16 21:01 97 Nasal Cannula 2.00 04/30/16 20:00 96.6 67 17 110/60 98 04/30/16 16:01 97 Nasal Cannula 2.00 04/30/16 15:45 95.2 68 18 132/66 99 04/30/16 14:45 72 04/30/16 14:45 97.5 72 14 128/71 100 Nasal Cannula 2 04/30/16 14:30 72 14 125/71 98 Nasal Cannula 2 04/30/16 14:15 79 14 122/73 100 Nasal Cannula 2 04/30/16 14:00 75 04/30/16 14:00 75 14 118/69 98 Nasal Cannula 2 04/30/16 13:59 97.5 82 14 123/85 98 Nasal Cannula 2 I/O 04/30/16 04/30/16 04/30/16 05/01/16 05/01/16 05/01/16 07:00 15:00 23:00 07:00 15:00 23:00 Intake Total 1300 ml 240 ml 240 ml Output Total 780 ml 900 ml 550 ml Balance 520 ml -660 ml -310 ml Intake Oral 0 ml 240 ml 240 ml Other 1300 ml Output Urine Total 550 ml 900 ml 500 ml Drainage Total 30 ml 50 ml Estimated Blood Loss 200 ml # Bowel Movements 0 0 Result Diagram: 05/01/1620 05/01/1620 Objective Remarks GENERAL: This is a well-nourished, well-developed patient, in no apparent distress. CARDIOVASCULAR: Normal rate and regular rhythm without murmurs, gallops, or rubs. RESPIRATORY: Good respiratory efforts. Breath sounds equal and clear to auscultation bilaterally. GASTROINTESTINAL: Abdomen soft, non-tender, non-distended. Normal active bowel sounds MUSCULOSKELETAL: Left hip postop dressing clean and dry. Neurovascularly intact distally. NEURO: Alert & Oriented x4 to person, place, time, situation. Moves all ext x4 PSYCH: Appropriate mood and affect. A/P Problem List: (1) Closed left hip fracture ICD Code: S72.002A Status: Acute (2) Small cell lung cancer ICD Code: C34.90 Status: Acute (3) Toxic metabolic encephalopathy ICD Code: G92 Status: Acute (4) Pneumonia ICD Code: J18.9 Status: Acute Assessment and Plan 70-year-old female with 1Toxic metabolic encephalopathy: Resolved. Head CT noted without any acute finding. 2Left subcapital hip fracture: Status post mechanical fall, hip x-ray with finding of Left subcapital hip fracture POD 1. Continue routine postop care per orthopedics 3suspected pneumonia: Currently on IV Flagyl, Levaquin and vancomycin, however patient afebrile with leukocytosis now resolution of encephalopathy, we de- escalate antibiotics and continuing only Levaquin. Maintain oxygen saturation above 92%, DuoNeb when necessary. 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 Patient advised on tobacco cessation 5Mild hyponatremia: Continue with gentle IV fluid hydrations and monitor electrolyte DVT prophylaxis: Lovenox Problem Qualifiers (1) Closed left hip fracture: Qualified Code: S72.002A - Closed left hip fracture, initial encounter Nadia Huff MD May 01, 2016 13:04
[2016-05-01] MEDS: ENOXAPARIN SODIUM 30 MG/0.3 ML SYRINGE SQ SCH (13:42)
[2016-05-01] MEDS: MAGNESIUM HYDROXIDE SUSP 30 ML CUP PO PRN (16:35)
[2016-05-01] MEDS: SODIUM CHLOR 0.45% 1000 ML INJ 1,000 ML IV SCH (17:46)
[2016-05-01] MEDS: ATORVASTATIN 20 MG TAB PO SCH (20:59)
[2016-05-02] VITALS: BP 109/58; PULSE 92; RESP 18; TEMP 98.3; O2SAT 94
[2016-05-02] MEDS: ALUMINUM/MAGNESIUM/SIMETH 30 ML CUP PO PRN ×2 (00:26→08:56)
[2016-05-02] MEDS: ACETAMINOPHEN/HYDROcodone 325 MG/7.5 MG TAB PO PRN ×3 (02:06→12:00)
[2016-05-02 04:00] VITALS: BP 111/59; PULSE 79; RESP 17; TEMP 95.6; O2SAT 94
[2016-05-02] MEDS: RESP: ALBUTEROL 2.5 MG/IPRATROPIUM 0.5 MG NEB (SCH) NEB ×4 (04:10→21:26)
[2016-05-02] MEDS: LEVOFLOXACIN 750 MG PREMIX INJ 150 ML IV SCH (05:36)
[2016-05-02 06:52] LABS: BICARBONATE 27.6 MEQ/L (21.0-32.0); POTASSIUM 3.4 MEQ/L (3.5-5.1)
[2016-05-02] MEDS: LACTATED RINGER'S 1000 ML IV SCH (07:00)
--- NOTE | 2016-05-02 07:00 | PD.ORT.PN ---
Subjective Subjective Remarks POD 2 s/p left hip bipolar hemiarthroplasty doing well. pain controlled. out of bed yesterday. Objective Vitals Vital Signs Date Time Temp Pulse Resp B/P Pulse Ox O2 Delivery O2 Flow Rate FiO2 05/02/16 04:00 95.6 79 17 111/59 94 05/02/16 00:00 98.3 92 18 109/58 94 05/01/16 20:00 97.0 89 18 111/61 96 05/01/16 17:32 96 21 05/01/16 16:00 97.4 100 18 123/59 94 05/01/16 12:00 97.6 80 18 112/61 99 05/01/16 08:04 95 21 05/01/16 08:00 97.0 81 16 115/56 98 05/01/16 07:28 Nasal Cannula 2.00 05/01/16 07:25 77 I/O 05/01/16 05/01/16 05/01/16 05/02/16 05/02/16 05/02/16 07:00 15:00 23:00 07:00 15:00 23:00 Intake Total 240 ml 580 ml 360 ml 240 ml Output Total 550 ml 40 ml 50 ml 50 ml Balance -310 ml 540 ml 310 ml 190 ml Intake Oral 240 ml 480 ml 360 ml 240 ml IV Total 100 ml Output Urine Total 500 ml Drainage Total 50 ml 40 ml 50 ml 50 ml # Voids 5 4 5 # Bowel Movements 0 0 0 0 Result Diagram: 05/01/16 0620 05/02/16 0534 Imaging Last 24 hours Impressions Femur X-Ray 04/30/16 0050 Signed Impressions: Service Date/Time: Saturday, April 30, 2016 01:00 - CONCLUSION: No additional bony abnormality. Noe Rodas MD Chest X-Ray 04/30/16 0028 Signed Impressions: Service Date/Time: Saturday, April 30, 2016 00:48 - CONCLUSION: 1. Focal masslike area of opacity again noted in the right midlung without significant change. 2. No new infiltrates or effusions. 3. Chronic scarring. Noe Rodas MD Hip and Pelvis X-Ray 04/30/16 0025 Signed Impressions: Service Date/Time: Saturday, April 30, 2016 00:48 - CONCLUSION: Left subcapital hip fracture. Noe Rodas MD Head CT 04/30/16 0000 Signed Impressions: Service Date/Time: Saturday, April 30, 2016 06:33 - CONCLUSION: Stable noncontrast head CT with no evidence of hemorrhage or stroke. Noe Rodas MD Chest CT 04/30/16 0000 Signed Impressions: Service Date/Time: Saturday, April 30, 2016 04:39 - CONCLUSION: 1. Pleural-based masslike area of consolidative opacity in the posterior right upper lobe. 2. A small hiatal hernia. 3. Coronary artery calcifications. Noe Rodas MD Objective Remarks LLE: dressing clean and dry. intact. NVI distally. not wearing knee brace Assessment & Plan Assessment and Plan 1) Left Femoral Neck fx s/p bipolar hemiarthroplasty - POD 2 -WBAT -posterior hip precautions -knee brace while in bed -DC drain with dressing change on POD 2 -daily dressing changes POD 2 -CM for rehab placement -f/u with Dipesh or [facility] in 2 weeks Santy Neely May 02, 2016 06:59
[2016-05-02] MEDS ORDERED: PHARMACY ORDERED LAB XX ONE ×2 (07:45→13:45)
[2016-05-02 08:00] VITALS: BP 102/55; PULSE 85; RESP 18; TEMP 97.7; O2SAT 95
[2016-05-02] MEDS: DOCUSATE SODIUM 100 MG CAP PO SCH ×2 (08:50→21:10)
[2016-05-02] MEDS: CHOLECALCIFEROL (VIT D3) 5000 UNIT CAP PO SCH (08:50)
[2016-05-02] MEDS: PANTOPRAZOLE SOD 20 MG DELAYED RELEASE TAB PO SCH (08:51)
[2016-05-02] MEDS: SODIUM CHLORIDE 0.9% FLUSH 5 ML FLUSH FLUSH SCH ×2 (08:51→21:10)
[2016-05-02] MEDS: SODIUM CHLOR 0.45% 1000 ML INJ 1,000 ML IV SCH (08:56)
[2016-05-02 12:00] VITALS: BP 108/61; PULSE 95; RESP 18; TEMP 97.3; O2SAT 96
[2016-05-02] MEDS: ENOXAPARIN SODIUM 30 MG/0.3 ML SYRINGE SQ SCH (14:32)
[2016-05-02 16:16] VITALS: O2SAT 98
--- NOTE | 2016-05-02 16:25 | HHI.PR ---
Subjective Remarks Patient reports that she is feeling OK. 2/4 blood cultures growing gram pos. cocci. She has no fevers or chills. Objective Vitals Vital Signs Date Time Temp Pulse Resp B/P Pulse Ox O2 Delivery O2 Flow Rate FiO2 05/02/16 16:16 98 21 05/02/16 12:00 97.3 95 18 108/61 96 05/02/16 08:00 97.7 85 18 102/55 95 05/02/16 04:00 95.6 79 17 111/59 94 05/02/16 00:00 98.3 92 18 109/58 94 05/01/16 20:00 97.0 89 18 111/61 96 05/01/16 17:32 96 21 I/O 05/01/16 05/01/16 05/01/16 05/02/16 05/02/16 05/02/16 07:00 15:00 23:00 07:00 15:00 23:00 Intake Total 240 ml 580 ml 360 ml 240 ml Output Total 550 ml 40 ml 50 ml 50 ml Balance -310 ml 540 ml 310 ml 190 ml Intake Oral 240 ml 480 ml 360 ml 240 ml IV Total 100 ml Output Urine Total 500 ml Drainage Total 50 ml 40 ml 50 ml 50 ml # Voids 5 4 5 # Bowel Movements 0 0 0 0 Result Diagram: 05/01/16 0620 05/02/16 0534 Objective Remarks GENERAL: This is a well-nourished, well-developed patient, in no apparent distress. CARDIOVASCULAR: Normal rate and regular rhythm without murmurs, gallops, or rubs. RESPIRATORY: Good respiratory efforts. Breath sounds equal and clear to auscultation bilaterally. GASTROINTESTINAL: Abdomen soft, non-tender, non-distended. Normal active bowel sounds MUSCULOSKELETAL: Left hip postop dressing clean and dry. Neurovascularly intact distally. NEURO: Alert & Oriented x4 to person, place, time, situation. Moves all ext x4 PSYCH: Appropriate mood and affect. A/P Problem List: (1) Closed left hip fracture ICD Code: S72.002A Status: Acute (2) Small cell lung cancer ICD Code: C34.90 Status: Acute (3) Toxic metabolic encephalopathy ICD Code: G92 Status: Acute (4) Pneumonia ICD Code: J18.9 Status: Acute Assessment and Plan 70-year-old female with Bacteremia: 2/4 Blood cultures growing coag neg staph. ? Contaminant. Repeat blood cultures. Continue antibiotics as below. Left subcapital hip fracture: Status post mechanical fall, hip x-ray with finding of Left subcapital hip fracture post op. Continue routine postop care per orthopedics suspected pneumonia: Currently on IV Flagyl, Levaquin and vancomycin, however patient afebrile with leukocytosis now resolution of encephalopathy, we de- escalate antibiotics and continuing only Levaquin. Maintain oxygen saturation above 92%, DuoNeb when necessary. Toxic metabolic encephalopathy: Resolved. Head CT noted without any acute finding. History of small cell carcinoma of the lung: Patient currently on remission, appreciate input from oncology and will need outpatient follow-up. Patient advised on tobacco cessation Mild hyponatremia: Continue with gentle IV fluid hydrations and monitor electrolyte DVT prophylaxis: Lovenox Problem Qualifiers (1) Closed left hip fracture: Qualified Code: S72.002A - Closed left hip fracture, initial encounter Nadia Huff MD May 02, 2016 16:25
[2016-05-02 20:00] VITALS: BP 106/63; PULSE 92; PULSE 94; RESP 18; TEMP 96.8; O2SAT 95
[2016-05-02] MEDS: ATORVASTATIN 20 MG TAB PO SCH (21:10)
[2016-05-03] VITALS (11 sets, daily range): BP systolic 93–180; BP diastolic 53–85; PULSE 83–104; RESP 16–20; TEMP 95.9–98.8; O2SAT 93–100
[2016-05-03] MEDS: RESP: ALBUTEROL 2.5 MG/IPRATROPIUM 0.5 MG NEB (SCH) NEB ×4 (04:03→21:59)
[2016-05-03] MEDS: LACTATED RINGER'S 1000 ML IV SCH (05:18)
[2016-05-03] MEDS: LEVOFLOXACIN 750 MG PREMIX INJ 150 ML IV SCH (05:18)
[2016-05-03 05:36] LABS: HEMATOCRIT 31.6 % (35.0-46.0); MEAN CELL VOLUME 81.7 FL (80.0-100.0); MEAN CORPUSCULAR HEMOGLOBIN 28.3 PG (27.0-34.0); MEAN CORPUSCULAR HGB CONC 34.7 % (32.0-36.0); PLATELET COUNT 178 TH/MM3 (150-450); RED BLOOD COUNT 3.86 MIL/MM3 (4.00-5.30); RED CELL DISTRIBUTION WIDTH 16.2 % (11.6-17.2); REVIEW FLAG FINAL; WHITE BLOOD COUNT 5.6 TH/MM3 (4.0-11.0)
[2016-05-03 05:59] LABS: BICARBONATE 26.5 MEQ/L (21.0-32.0); POTASSIUM 3.9 MEQ/L (3.5-5.1)
--- NOTE | 2016-05-03 06:52 | PD.ORT.PN ---
Subjective Subjective Remarks Resting comfortably no new complaints Objective Vitals Vital Signs Date Time Temp Pulse Resp B/P Pulse Ox O2 Delivery O2 Flow Rate FiO2 05/03/16 04:00 96.4 89 18 126/68 99 05/03/16 00:00 97.3 104 17 113/64 93 05/02/16 20:00 92 05/02/16 20:00 96.8 94 18 106/63 95 05/02/16 20:00 Room Air 05/02/16 16:16 98 21 05/02/16 12:00 97.3 95 18 108/61 96 05/02/16 08:00 97.7 85 18 102/55 95 I/O 05/02/16 05/02/16 05/02/16 05/03/16 05/03/16 05/03/16 07:00 15:00 23:00 07:00 15:00 23:00 Intake Total 240 ml 480 ml 390 ml Output Total 50 ml Balance 190 ml 480 ml 390 ml Intake Oral 240 ml 480 ml 240 ml IV Total 150 ml Drainage Total 50 ml # Voids 5 3 4 # Bowel Movements 0 0 0 Result Diagram: 05/03/16 0450 05/03/16 0445 Imaging Last 24 hours Impressions Femur X-Ray 04/30/16 0050 Signed Impressions: Service Date/Time: Saturday, April 30, 2016 01:00 - CONCLUSION: No additional bony abnormality. Favian Rodas MD Chest X-Ray 04/30/16 0028 Signed Impressions: Service Date/Time: Saturday, April 30, 2016 00:48 - CONCLUSION: 1. Focal masslike area of opacity again noted in the right midlung without significant change. 2. No new infiltrates or effusions. 3. Chronic scarring. Favian Rodas MD Hip and Pelvis X-Ray 04/30/16 0025 Signed Impressions: Service Date/Time: Saturday, April 30, 2016 00:48 - CONCLUSION: Left subcapital hip fracture. Favian Rodas MD Head CT 04/30/16 0000 Signed Impressions: Service Date/Time: Saturday, April 30, 2016 06:33 - CONCLUSION: Stable noncontrast head CT with no evidence of hemorrhage or stroke. Favian Rodas MD Chest CT 04/30/16 0000 Signed Impressions: Service Date/Time: Saturday, April 30, 2016 04:39 - CONCLUSION: 1. Pleural-based masslike area of consolidative opacity in the posterior right upper lobe. 2. A small hiatal hernia. 3. Coronary artery calcifications. Favian Rodas MD Objective Remarks LLE: dressing clean and dry. intact. NVI distally. Assessment & Plan Assessment and Plan 1) Left Femoral Neck fx s/p bipolar hemiarthroplasty - POD 3 -WBAT -posterior hip precautions -knee brace while in bed -daily dressing changes -CM for rehab placement -f/u with Dipesh or [facility] in 2 weeks FAVIAN NGUYEN PA-C May 03, 2016 06:52
[2016-05-03] MEDS: SODIUM CHLORIDE 0.9% FLUSH 5 ML FLUSH FLUSH SCH ×2 (09:00→20:23)
[2016-05-03] MEDS: PANTOPRAZOLE SOD 20 MG DELAYED RELEASE TAB PO SCH (09:04)
[2016-05-03] MEDS: CHOLECALCIFEROL (VIT D3) 5000 UNIT CAP PO SCH (09:04)
[2016-05-03] MEDS: DOCUSATE SODIUM 100 MG CAP PO SCH ×2 (09:04→20:23)
--- NOTE | 2016-05-03 11:06 | HHI.PR ---
Subjective Remarks Patient seen working with PT. No new complaints. No fevers or chills. Objective Vitals Vital Signs Date Time Temp Pulse Resp B/P Pulse Ox O2 Delivery O2 Flow Rate FiO2 05/03/16 09:39 96 05/03/16 08:00 96.5 89 16 117/67 96 05/03/16 04:00 96.4 89 18 126/68 99 05/03/16 00:00 97.3 104 17 113/64 93 05/02/16 20:00 92 05/02/16 20:00 96.8 94 18 106/63 95 05/02/16 20:00 Room Air 05/02/16 16:16 98 21 05/02/16 12:00 97.3 95 18 108/61 96 I/O 05/02/16 05/02/16 05/02/16 05/03/16 05/03/16 05/03/16 07:00 15:00 23:00 07:00 15:00 23:00 Intake Total 240 ml 480 ml 390 ml 190 ml Output Total 50 ml Balance 190 ml 480 ml 390 ml 190 ml Intake Oral 240 ml 480 ml 240 ml IV Total 150 ml 190 ml Drainage Total 50 ml # Voids 5 3 4 # Bowel Movements 0 0 0 Result Diagram: 05/03/16 0450 05/03/16 0445 Objective Remarks GENERAL: This is a well-nourished, well-developed patient, in no apparent distress. CARDIOVASCULAR: Normal rate and regular rhythm without murmurs, gallops, or rubs. RESPIRATORY: Good respiratory efforts. Breath sounds equal and clear to auscultation bilaterally. GASTROINTESTINAL: Abdomen soft, non-tender, non-distended. Normal active bowel sounds MUSCULOSKELETAL: Left hip postop dressing clean and dry. Neurovascularly intact distally. NEURO: Alert & Oriented x4 to person, place, time, situation. Moves all ext x4 PSYCH: Appropriate mood and affect. A/P Problem List: (1) Closed left hip fracture ICD Code: S72.002A Status: Acute (2) Small cell lung cancer ICD Code: C34.90 Status: Acute (3) Toxic metabolic encephalopathy ICD Code: G92 Status: Acute (4) Pneumonia ICD Code: J18.9 Status: Acute Assessment and Plan 70-year-old female with Bacteremia: 2/4 Blood cultures growing coag neg staph. ? Contaminant. Repeat blood cultures. Continue antibiotics as below. If repeat blood cultures neg X48 hrs, can DC to SNF tomorrow. Left subcapital hip fracture: Status post mechanical fall, hip x-ray with finding of Left subcapital hip fracture post op. Continue routine postop care per orthopedics suspected pneumonia: Currently on IV Flagyl, Levaquin and vancomycin, however patient afebrile with leukocytosis now resolution of encephalopathy, we de- escalate antibiotics and continuing only Levaquin. Maintain oxygen saturation above 92%, DuoNeb when necessary. Toxic metabolic encephalopathy: Resolved. Head CT noted without any acute finding. History of small cell carcinoma of the lung: Patient currently on remission, appreciate input from oncology and will need outpatient follow-up. Patient advised on tobacco cessation DVT prophylaxis: Lovenox Discharge Planning Plan to DC to SNF tomorrow if repeat blood cultures neg X48 hrs. Problem Qualifiers (1) Closed left hip fracture: Qualified Code: S72.002A - Closed left hip fracture, initial encounter Nadia Huff MD May 03, 2016 11:06
[2016-05-03] MEDS: ACETAMINOPHEN/HYDROcodone 325 MG/7.5 MG TAB PO PRN (11:32)
[2016-05-03] MEDS: ENOXAPARIN SODIUM 30 MG/0.3 ML SYRINGE SQ SCH (13:09)
[2016-05-03] MEDS: ALUMINUM/MAGNESIUM/SIMETH 30 ML CUP PO PRN ×2 (16:13→20:28)
[2016-05-03] MEDS: ATORVASTATIN 20 MG TAB PO SCH (20:23)
[2016-05-04] VITALS (7 sets, daily range): BP systolic 93–106; BP diastolic 53–69; PULSE 70–90; RESP 16–20; TEMP 97.1–98.1; O2SAT 96–98
[2016-05-04] MEDS: RESP: ALBUTEROL 2.5 MG/IPRATROPIUM 0.5 MG NEB (SCH) NEB ×2 (03:27→09:46)
[2016-05-04] MEDS: LEVOFLOXACIN 750 MG PREMIX INJ 150 ML IV SCH (04:22)
[2016-05-04] MEDS: ACETAMINOPHEN/HYDROcodone 325 MG/7.5 MG TAB PO PRN ×3 (04:22→22:57)
[2016-05-04] MEDS: LACTATED RINGER'S 1000 ML IV SCH (07:00)
[2016-05-04] MEDS: PANTOPRAZOLE SOD 20 MG DELAYED RELEASE TAB PO SCH (08:49)
[2016-05-04] MEDS: CHOLECALCIFEROL (VIT D3) 5000 UNIT CAP PO SCH (08:49)
[2016-05-04] MEDS: DOCUSATE SODIUM 100 MG CAP PO SCH ×2 (08:49→20:40)
[2016-05-04] MEDS: SODIUM CHLORIDE 0.9% FLUSH 5 ML FLUSH FLUSH SCH ×2 (08:52→20:41)
[2016-05-04] MEDS: ENOXAPARIN SODIUM 30 MG/0.3 ML SYRINGE SQ SCH (12:01)
--- NOTE | 2016-05-04 13:29 | HHI.PR ---
Subjective Remarks Patient reports that she is feeling ok except for feeling tired. No fevers or chills. Objective Vitals Vital Signs Date Time Temp Pulse Resp B/P Pulse Ox O2 Delivery O2 Flow Rate FiO2 05/04/16 12:05 98.1 79 16 106/59 97 05/04/16 08:11 97.4 78 17 98/64 96 05/04/16 04:00 97.6 89 18 99/69 96 05/04/16 00:00 97.2 90 20 93/53 98 05/03/16 22:04 97 05/03/16 21:59 97 05/03/16 21:10 98 Room Air 05/03/16 20:00 96.2 89 20 103/58 98 05/03/16 19:53 83 05/03/16 16:27 95.9 88 16 124/70 100 I/O 05/03/16 05/03/16 05/03/16 05/04/16 05/04/16 05/04/16 06:59 14:59 22:59 06:59 14:59 22:59 Intake Total 390 ml 190 ml 480 ml 240 ml Balance 390 ml 190 ml 480 ml 240 ml Intake Oral 240 ml 480 ml 240 ml IV Total 150 ml 190 ml # Voids 4 5 2 # Bowel Movements 0 1 Result Diagram: 05/03/16 0450 05/03/16 0445 Objective Remarks GENERAL: This is a well-nourished, well-developed patient, in no apparent distress. CARDIOVASCULAR: Normal rate and regular rhythm without murmurs, gallops, or rubs. RESPIRATORY: Good respiratory efforts. Breath sounds equal and clear to auscultation bilaterally. GASTROINTESTINAL: Abdomen soft, non-tender, non-distended. Normal active bowel sounds MUSCULOSKELETAL: Left hip postop dressing clean and dry. Neurovascularly intact distally. NEURO: Alert & Oriented x4 to person, place, time, situation. Moves all ext x4 PSYCH: Appropriate mood and affect. A/P Problem List: (1) Closed left hip fracture ICD Code: S72.002A Status: Acute (2) Small cell lung cancer ICD Code: C34.90 Status: Acute (3) Toxic metabolic encephalopathy ICD Code: G92 Status: Acute (4) Pneumonia ICD Code: J18.9 Status: Acute Assessment and Plan 70-year-old female with Bacteremia: Blood cultures from 04/30, 06/08 Blood cultures growing coag neg staph and gram neg binh. ? Contaminant, ? clinical significance. Repeat blood cultures neg X 1 day. - Consult ID to help determine clinical significance and course of antibiotics if needed. - Patient has been on Levaquin IV. Continue to monitor. Left subcapital hip fracture: Status post mechanical fall, hip x-ray with finding of Left subcapital hip fracture post op. Continue routine postop care per orthopedics suspected pneumonia: continuing Levaquin. Maintain oxygen saturation above 92% , DuoNeb when necessary. Toxic metabolic encephalopathy: Resolved. Head CT noted without any acute finding. History of small cell carcinoma of the lung: Patient currently on remission, will need outpatient follow-up. Patient advised on tobacco cessation DVT prophylaxis: Lovenox Discharge Planning Plan to DC to SNF when cleared by infectious disease or when bacteremia resolves. Problem Qualifiers (1) Closed left hip fracture: Qualified Code: S72.002A - Closed left hip fracture, initial encounter Nadia Huff MD May 04, 2016 13:29
[2016-05-04] MEDS: CEFEPIME INJ 2,000 MG in SODIUM CHLORIDE 0.9% INJ 100 ML IV SCH ×2 (17:42→22:56)
--- NOTE | 2016-05-04 18:46 | PD.ID.CON ---
History of Present Illness Service ID Consult Requested By Dr Huff Reason for Consult bacteremia Primary Care Physician Christen Mayfield MD Diagnoses: History of Present Illness This is a 70-year-old female with past medical history significant for lung cancer status post chemotherapy and radiation therapy. Patient presents after a syncopal episode per report, though pt states she slipped and fell. Her dgtr at b/s thinks that her mom had weakness x 2 days. She also hjas been loosing weight. She was diagnosed with displaced left femoral neck fracture and underwent Left hip hemiarthroplasty on Apr 30, 2016 She had blood cultures done on admission and they growin coag negative staph along with a GNR in one of the bottles Pt denies fever, chills or nightsweats, though daughter reports that pts phas been weak for couple of weeks Pt denies abdomioinaml paion, vomiting, diarrhea. No disuria No PORTs, lines or cardiac devices. No other prosthetic devices Pt daughter is concerned that pt stays lethargic Pt is hard of hearing Review of Systems ROS Limitations: Hearing Impaired, Poor Historian Other as per history of present illness, the rest of 12 point review is negative Past Family Social History Allergies: Coded Allergies: Aspirin (Verified Allergy, Severe, GASTRIC UPSET, 04/30/16) Past Medical History 1. Lung cancer status post chemotherapy and radiation therapy. 2. History of balance problems. 3. Tries weakness. 4. Hyperlipidemia. 5. Tobacco abuse. 6. Osteoarthritis. 7. Myelopathy. 8. Polymyalgia rheumatica. 9. Diminished hearing in the right ear. 10. COPD. 11. GERD. Past Surgical History Partial hysterectomy. Active Ordered Medications Medications where reviewed in EMR Antibiotics Include: cefepime - started 05/04 Family History lung ca Social History + Tobacco. 1ppd No ETOH. No Illicit Drugs. Physical Exam Vital Signs Vital Signs Date Time Temp Pulse Resp B/P Pulse Ox O2 Delivery O2 Flow Rate FiO2 05/04/16 16:00 97.6 70 16 103/60 97 05/04/16 12:05 98.1 79 16 106/59 97 05/04/16 08:11 97.4 78 17 98/64 96 05/04/16 08:00 78 05/04/16 04:00 97.6 89 18 99/69 96 05/04/16 00:00 97.2 90 20 93/53 98 05/03/16 22:04 97 05/03/16 21:59 97 05/03/16 21:10 98 Room Air 05/03/16 20:00 96.2 89 20 103/58 98 05/03/16 19:53 83 Physical Exam CONSTITUTIONAL/GENERAL: This is an adequately nourished patient, in no apparent distress. TUBES/LINES/DRAINS: SKIN: No jaundice, rashes, or lesions. Skin temperature appropriate. Not diaphoretic. HEAD: Atraumatic. Normocephalic. EYES: Pupils equal and round and reactive. Extraocular motions intact. No scleral icterus. No injection or drainage. Fundi not examined. ENT: Hearing markedly decreased (baseline). Nose without bleeding or purulent drainage.Oral mucosae without visible erythema, exudates, masses, or lesions. Poor dentition NECK: Trachea midline. Supple, nontender. CARDIOVASCULAR: Regular rate and rhythm without murmurs, gallops, or rubs. No JVD. Peripheral pulses symmetric. RESPIRATORY/CHEST: Symmetric, unlabored respirations. Clear to auscultation. Breath sounds equal bilaterally. No wheezes, rales, or rhonchi. GASTROINTESTINAL: Abdomen soft, non-tender, nondistended. No hepato-splenomegaly , or palpable masses. No guarding. Bowel sounds present. GENITOURINARY: Without palpable bladder distension. MUSCULOSKELETAL: Extremities without clubbing, cyanosis, or edema. No joint tenderness or effusion noted. No calf tenderness. No mottling or clubbing. LYMPHATICS: No palpable cervical or supraclavicular adenopathy. NEUROLOGICAL: Slightly lethargic, but easily arousable. Motor and sensory grossly within normal limits. Follows commands. Speech normal Moves all extremities. PSYCHIATRIC: No obvious anxiety/depression. no apparent hallucinations or other psychotic thought process. Laboratory Date/Time Procedure Status Source Growth 05/03/16 04:50 Aerobic Blood Culture - Preliminary Resulted Blood Peripheral NO GROWTH IN 1 DAY 05/03/16 04:50 Anaerobic Blood Culture - Preliminary Resulted Blood Peripheral NO GROWTH IN 1 DAY 04/30/16 06:20 Legionella Antigen - Final Complete Urine Random Urine PRESUMPTIVE NEGATIVE FOR LEGIONELLA P... 04/30/16 06:20 Streptococcus pneumoniae Antigen (M - Final Complete Urine Random Urine PRESUMPTIVE NEGATIVE FOR STREPTOCOCCU... 04/30/16 05:50 Aerobic Blood Culture - Final Resulted Blood Peripheral Staphylococcus Hominis-Hominis Staph Sp Coagulase Negative 04/30/16 05:50 Anaerobic Blood Culture - Preliminary Resulted Blood Peripheral NO GROWTH IN 4 DAYS Result Diagram: 05/03/16 0450 05/03/16 0445 Imaging Last Impressions Hip and Pelvis X-Ray 04/30/16 1339 Signed Impressions: Service Date/Time: Saturday, April 30, 2016 14:29 - CONCLUSION: Good position and alignment on this postoperative study. Raghu Ochoa MD Femur X-Ray 04/30/16 0050 Signed Impressions: Service Date/Time: Saturday, April 30, 2016 01:00 - CONCLUSION: No additional bony abnormality. Noe Rodas MD Chest X-Ray 04/30/16 0028 Signed Impressions: Service Date/Time: Saturday, April 30, 2016 00:48 - CONCLUSION: 1. Focal masslike area of opacity again noted in the right midlung without significant change. 2. No new infiltrates or effusions. 3. Chronic scarring. Noe Rodas MD Head CT 04/30/16 0000 Signed Impressions: Service Date/Time: Saturday, April 30, 2016 06:33 - CONCLUSION: Stable noncontrast head CT with no evidence of hemorrhage or stroke. Noe Rodas MD Chest CT 04/30/16 0000 Signed Impressions: Service Date/Time: Saturday, April 30, 2016 04:39 - CONCLUSION: 1. Pleural-based masslike area of consolidative opacity in the posterior right upper lobe. 2. A small hiatal hernia. 3. Coronary artery calcifications. Noe Rodas MD Assessment and Plan Assessment and Plan Gram negative bacteremia ? source Coagg neg staph bactermia - ? clinical significance Lung ca Tobaccoism - cefepime - dc levaquine - fu coag negative staph ID in the other sert - fu gram negative binh ID Discussed Condition With dgtr at b/s Iza Doss MD May 04, 2016 18:46
[2016-05-04] MEDS: ATORVASTATIN 20 MG TAB PO SCH (20:40)
[2016-05-04] MEDS: MAGNESIUM HYDROXIDE SUSP 30 ML CUP PO PRN (20:41)
[2016-05-05] VITALS (7 sets, daily range): BP systolic 92–119; BP diastolic 56–92; PULSE 73–99; RESP 16–22; TEMP 96.3–98.3; O2SAT 96–99
[2016-05-05] MEDS: LACTATED RINGER'S 1000 ML IV SCH (03:21)
[2016-05-05] MEDS: CEFEPIME INJ 2,000 MG in SODIUM CHLORIDE 0.9% INJ 100 ML IV SCH ×3 (06:12→21:26)
[2016-05-05] MEDS: SODIUM CHLORIDE 0.9% FLUSH 5 ML FLUSH FLUSH SCH ×2 (08:36→21:26)
[2016-05-05] MEDS: DOCUSATE SODIUM 100 MG CAP PO SCH ×2 (08:36→21:25)
[2016-05-05] MEDS: PANTOPRAZOLE SOD 20 MG DELAYED RELEASE TAB PO SCH (08:36)
[2016-05-05] MEDS: MAGNESIUM HYDROXIDE SUSP 30 ML CUP PO PRN (08:36)
[2016-05-05] MEDS: ACETAMINOPHEN/HYDROcodone 325 MG/7.5 MG TAB PO PRN (08:36)
[2016-05-05] MEDS: CHOLECALCIFEROL (VIT D3) 5000 UNIT CAP PO SCH (08:36)
[2016-05-05 09:24] LABS: BICARBONATE 24.2 MEQ/L (21.0-32.0); POTASSIUM 4.3 MEQ/L (3.5-5.1)
[2016-05-05 09:27] LABS: HEMATOCRIT 38.5 % (35.0-46.0); MEAN CELL VOLUME 82.6 FL (80.0-100.0); MEAN CORPUSCULAR HEMOGLOBIN 27.9 PG (27.0-34.0); MEAN CORPUSCULAR HGB CONC 33.8 % (32.0-36.0); PLATELET COUNT 161 TH/MM3 (150-450); RED BLOOD COUNT 4.66 MIL/MM3 (4.00-5.30); RED CELL DISTRIBUTION WIDTH 16.2 % (11.6-17.2); REVIEW FLAG FINAL; WHITE BLOOD COUNT 4.4 TH/MM3 (4.0-11.0)
[2016-05-05] MEDS: ENOXAPARIN SODIUM 30 MG/0.3 ML SYRINGE SQ SCH (12:57)
--- NOTE | 2016-05-05 13:29 | HHI.PR ---
Subjective Remarks Patient seen and evaluated in follow up for bacteremia and Hip post Left hip hemiarthroplasty, doing well. No fever, WBCs stable Discussed with patient and daughter at bedside as well as Debo RN Objective Vitals Vital Signs Date Time Temp Pulse Resp B/P Pulse Ox O2 Delivery O2 Flow Rate FiO2 05/05/16 12:04 96.3 73 18 92/56 96 05/05/16 08:54 99 05/05/16 08:44 Room Air 05/05/16 08:00 97.8 86 18 119/92 99 05/05/16 04:00 97.2 83 20 107/68 96 05/05/16 00:00 98.3 80 22 119/75 96 05/04/16 20:00 97.1 81 20 101/58 96 05/04/16 16:00 97.6 70 16 103/60 97 I/O 05/04/16 05/04/16 05/04/16 05/05/16 05/05/16 05/05/16 07:00 15:00 23:00 07:00 15:00 23:00 Intake Total 240 ml 760 ml 407 ml 401 ml Balance 240 ml 760 ml 407 ml 401 ml Intake Oral 240 ml 760 ml 240 ml 240 ml IV Total 167 ml 161 ml # Voids 2 3 4 4 # Bowel Movements 1 0 Result Diagram: 05/05/1670605/05/16706 Objective Remarks GENERAL: This is a well-nourished, well-developed patient, in no apparent distress. CARDIOVASCULAR: Regular rate and rhythm without murmurs, gallops, or rubs. RESPIRATORY: Clear to auscultation. Breath sounds equal bilaterally. No wheezes , rales, or rhonchi. GASTROINTESTINAL: Abdomen soft, non-tender, nondistended. Normal active bowel sounds MUSCULOSKELETAL: Extremities without clubbing, cyanosis, or edema. NEURO: Cognitive impairment at baseline, oriented to person and place A/P Problem List: (1) Closed left hip fracture ICD Code: S72.002A Status: Acute Plan: Left Femoral Neck fx s/p bipolar hemiarthroplasty, POD 4 WBAT, posterior hip precautions, knee brace while in bed LMWH (2) Small cell lung cancer ICD Code: C34.90 Status: Acute Plan: stable outpatient follow up (3) Pneumonia ICD Code: J18.9 Status: Acute Plan: Cont Cefepime (4) Bacteremia ICD Code: R78.81 Status: Acute Plan: 04/30 blood cultures growing Coag Neg Staph Cefepime Per ID Assessment and Plan to SNF when stable Problem Qualifiers (1) Closed left hip fracture: Qualified Code: S72.002A - Closed left hip fracture, initial encounter Tessa Ahn MD May 05, 2016 13:29
[2016-05-05] MEDS: ATORVASTATIN 20 MG TAB PO SCH (21:25)
[2016-05-06] VITALS: BP 107/73; PULSE 78; RESP 20; TEMP 96.8; O2SAT 95
[2016-05-06] MEDS: LACTATED RINGER'S 1000 ML IV SCH (05:34)
[2016-05-06] MEDS: CEFEPIME INJ 2,000 MG in SODIUM CHLORIDE 0.9% INJ 100 ML IV SCH ×3 (05:35→23:00)
[2016-05-06 08:00] VITALS: BP 118/72; PULSE 58; RESP 18; TEMP 96; O2SAT 91
[2016-05-06] MEDS: DOCUSATE SODIUM 100 MG CAP PO SCH ×2 (09:00→20:13)
[2016-05-06] MEDS: CHOLECALCIFEROL (VIT D3) 5000 UNIT CAP PO SCH (09:13)
[2016-05-06] MEDS: PANTOPRAZOLE SOD 20 MG DELAYED RELEASE TAB PO SCH (09:14)
[2016-05-06] MEDS: ACETAMINOPHEN/HYDROcodone 325 MG/7.5 MG TAB PO PRN ×3 (09:14→20:13)
[2016-05-06] MEDS: SODIUM CHLORIDE 0.9% FLUSH 5 ML FLUSH FLUSH SCH ×2 (09:14→20:13)
[2016-05-06 12:00] VITALS: BP 115/77; PULSE 77; RESP 18; TEMP 96.5; O2SAT 94
--- NOTE | 2016-05-06 13:00 | HHI.PR ---
Subjective Remarks Patient seen and evaluated today in follow-up for left hip postop management as well as bacteremia. No new complaints today. Good bowel movements. Care plan discussed with infectious disease. Awaiting gram-negative binh clarification Objective Vitals Vital Signs Date Time Temp Pulse Resp B/P Pulse Ox O2 Delivery O2 Flow Rate FiO2 05/06/16 08:00 96.0 58 18 118/72 91 05/06/16 00:00 96.8 78 20 107/73 95 05/05/16 20:15 97.4 89 16 102/58 96 05/05/16 16:28 Room Air 05/05/16 16:00 97.2 74 18 105/65 96 I/O 05/05/16 05/05/16 05/05/16 05/06/16 05/06/16 05/06/16 07:00 15:00 23:00 07:00 15:00 23:00 Intake Total 401 ml 1200 ml 1330 ml 240 ml Balance 401 ml 1200 ml 1330 ml 240 ml Intake Oral 240 ml 1200 ml 1200 ml 240 ml IV Total 161 ml 130 ml # Voids 4 3 3 5 # Bowel Movements 0 1 3 0 Result Diagram: 05/05/16 0707 05/05/16 0707 Objective Remarks GENERAL: This is a well-nourished, well-developed patient, in no apparent distress. CARDIOVASCULAR: Regular rate and rhythm without murmurs, gallops, or rubs. RESPIRATORY: Clear to auscultation. Breath sounds equal bilaterally. No wheezes , rales, or rhonchi. GASTROINTESTINAL: Abdomen soft, non-tender, nondistended. Normal active bowel sounds MUSCULOSKELETAL: Extremities without clubbing, cyanosis, or edema. NEURO: Cognitive impairment at baseline, oriented to person and place A/P Problem List: (1) Closed left hip fracture ICD Code: S72.002A Status: Acute Plan: Left Femoral Neck fx s/p bipolar hemiarthroplasty, POD 5 WBAT, posterior hip precautions, knee brace while in bed LMWH (2) Small cell lung cancer ICD Code: C34.90 Status: Acute Plan: stable outpatient follow up (3) Pneumonia ICD Code: J18.9 Status: Acute Plan: Cont Cefepime (4) Bacteremia ICD Code: R78.81 Status: Acute Plan: 04/30 blood cultures growing gram-negative rods, further sensitivities pending Cefepime Per ID Assessment and Plan to SNF when stable Problem Qualifiers (1) Closed left hip fracture: Qualified Code: S72.002A - Closed left hip fracture, initial encounter Tessa Ahn MD May 06, 2016 13:00
[2016-05-06] MEDS: ENOXAPARIN SODIUM 30 MG/0.3 ML SYRINGE SQ SCH (13:06)
[2016-05-06 16:00] VITALS: BP 108/66; PULSE 68; RESP 18; TEMP 96.8; O2SAT 97
--- NOTE | 2016-05-06 18:48 | HHI.IDPN ---
Subjective Subjective Remarks no co afebrile fully awake and eating Antibiotics cefepime Allergies: Coded Allergies: Aspirin (Verified Allergy, Severe, GASTRIC UPSET, 04/30/16) Objective . Vital Signs Date Time Temp Pulse Resp B/P Pulse Ox O2 Delivery O2 Flow Rate FiO2 05/06/16 16:00 96.8 68 18 108/66 97 05/06/16 12:00 96.5 77 18 115/77 94 05/06/16 08:00 96.0 58 18 118/72 91 05/06/16 00:00 96.8 78 20 107/73 95 05/05/16 20:15 97.4 89 16 102/58 96 05/05/16 05/05/16 05/06/16 15:00 23:00 07:00 Intake Total 1200 ml 1330 ml 240 ml Balance 1200 ml 1330 ml 240 ml Intake Oral 1200 ml 1200 ml 240 ml IV Total 130 ml # Voids 3 3 5 # Bowel Movements 1 3 0 . Laboratory Tests Test 05/05/16 07:07 White Blood Count 4.4 TH/MM3 Red Blood Count 4.66 MIL/MM3 Hemoglobin 13.0 GM/DL Hematocrit 38.5 % Mean Corpuscular Volume 82.6 FL Mean Corpuscular Hemoglobin 27.9 PG Mean Corpuscular Hemoglobin 33.8 % Concent Red Cell Distribution Width 16.2 % Platelet Count 161 TH/MM3 Mean Platelet Volume 7.3 FL Laboratory Tests Test 05/05/16 07:07 Sodium Level 132 MEQ/L Potassium Level 4.3 MEQ/L Chloride Level 98 MEQ/L Carbon Dioxide Level 24.2 MEQ/L Anion Gap 10 MEQ/L Blood Urea Nitrogen 9 MG/DL Creatinine 0.49 MG/DL Estimat Glomerular Filtration 124 ML/MIN Rate Random Glucose 84 MG/DL Calcium Level 8.5 MG/DL Imaging Last Impressions Hip and Pelvis X-Ray 04/30/16 1339 Signed Impressions: Service Date/Time: Saturday, April 30, 2016 14:29 - CONCLUSION: Good position and alignment on this postoperative study. Raghu Ochoa MD Femur X-Ray 04/30/16 0050 Signed Impressions: Service Date/Time: Saturday, April 30, 2016 01:00 - CONCLUSION: No additional bony abnormality. Noe Rdoas MD Chest X-Ray 04/30/16 0028 Signed Impressions: Service Date/Time: Saturday, April 30, 2016 00:48 - CONCLUSION: 1. Focal masslike area of opacity again noted in the right midlung without significant change. 2. No new infiltrates or effusions. 3. Chronic scarring. Noe Rodas MD Head CT 04/30/16 0000 Signed Impressions: Service Date/Time: Saturday, April 30, 2016 06:33 - CONCLUSION: Stable noncontrast head CT with no evidence of hemorrhage or stroke. Noe Rodas MD Chest CT 04/30/16 0000 Signed Impressions: Service Date/Time: Saturday, April 30, 2016 04:39 - CONCLUSION: 1. Pleural-based masslike area of consolidative opacity in the posterior right upper lobe. 2. A small hiatal hernia. 3. Coronary artery calcifications. Noe Rodas MD Physical Exam CONSTITUTIONAL/GENERAL: This is an adequately nourished patient, in no apparent distress. SKIN: No jaundice, rashes, or lesions. EYES: No scleral icterus. ENT: Hearing markedly decreased (baseline). . Poor dentition CARDIOVASCULAR: Regular rate and rhythm without murmurs, gallops, or rubs. No JVD. Peripheral pulses symmetric. RESPIRATORY/CHEST: Symmetric, unlabored respirations. Clear to auscultation. Breath sounds equal bilaterally. GASTROINTESTINAL: Abdomen soft, non-tender, nondistended. No hepato-splenomegaly , or palpable masses. MUSCULOSKELETAL: Extremities without clubbing, cyanosis, or edema. LLE - brace in place NEUROLOGICAL: fully awake and alert. [place]. Follows commands PSYCHIATRIC: No obvious anxiety/depression. no apparent hallucinations or other psychotic thought process. Assessment & Plan Remarks Gram negative bacteremia ? source - ID P staph hominis bacteremia - doubrt clinical significance - sensitivity profile is different by 3 positions (clinda, TS. tetracycline) , clearly different strains Lung ca Tobaccoism - cont cefepime for GNB bacteremia - - fu gram negative binh ID Discussed Condition With Dr Ahn and dgtr at b/s Iza Doss MD May 06, 2016 18:48
[2016-05-06 20:00] VITALS: BP 102/65; PULSE 78; RESP 16; TEMP 96.4; O2SAT 96
[2016-05-06] MEDS: ALUMINUM/MAGNESIUM/SIMETH 30 ML CUP PO PRN (20:12)
[2016-05-06] MEDS: ATORVASTATIN 20 MG TAB PO SCH (20:13)
[2016-05-07] VITALS: BP 102/63; PULSE 83; RESP 16; TEMP 96.3; O2SAT 95
[2016-05-07] MEDS: ACETAMINOPHEN/HYDROcodone 325 MG/7.5 MG TAB PO PRN ×3 (01:06→18:41)
[2016-05-07] MEDS: LACTATED RINGER'S 1000 ML IV SCH (03:12)
[2016-05-07 04:00] VITALS: BP 102/59; PULSE 79; RESP 16; TEMP 96.5; O2SAT 94
[2016-05-07] MEDS: CEFEPIME INJ 2,000 MG in SODIUM CHLORIDE 0.9% INJ 100 ML IV SCH ×3 (05:57→22:06)
[2016-05-07 08:00] VITALS: BP 110/67; PULSE 72; RESP 19; TEMP 96.2; O2SAT 96
[2016-05-07] MEDS: SODIUM CHLORIDE 0.9% FLUSH 5 ML FLUSH FLUSH SCH ×2 (08:36→22:06)
[2016-05-07] MEDS: PANTOPRAZOLE SOD 20 MG DELAYED RELEASE TAB PO SCH (08:36)
[2016-05-07] MEDS: DOCUSATE SODIUM 100 MG CAP PO SCH ×2 (08:36→22:06)
[2016-05-07] MEDS: CHOLECALCIFEROL (VIT D3) 5000 UNIT CAP PO SCH (08:36)
--- NOTE | 2016-05-07 11:36 | HHI.PR ---
Subjective Remarks The pt said she was cold. She said she just took a pain pill for her hip pain. Has been eating OK. Has been having bowel movements. Discussed with nursing. Objective Vitals Vital Signs Date Time Temp Pulse Resp B/P Pulse Ox O2 Delivery O2 Flow Rate FiO2 05/07/16 08:00 96.2 72 19 110/67 96 05/07/16 04:00 96.5 79 16 102/59 94 05/07/16 00:00 96.3 83 16 102/63 95 05/06/16 20:00 96.4 78 16 102/65 96 05/06/16 16:00 96.8 68 18 108/66 97 05/06/16 12:00 96.5 77 18 115/77 94 I/O 05/06/16 05/06/16 05/06/16 05/07/16 05/07/16 05/07/16 07:00 15:00 23:00 07:00 15:00 23:00 Intake Total 240 ml 720 ml 240 ml 240 ml Balance 240 ml 720 ml 240 ml 240 ml Intake Oral 240 ml 720 ml 240 ml 240 ml # Voids 5 2 2 3 # Bowel Movements 0 2 0 0 Result Diagram: 05/05/16 0707 05/05/16 0707 Imaging Last Impressions Hip and Pelvis X-Ray 04/30/16 1339 Signed Impressions: Service Date/Time: Saturday, April 30, 2016 14:29 - CONCLUSION: Good position and alignment on this postoperative study. Raghu Ochoa MD Femur X-Ray 04/30/16 0050 Signed Impressions: Service Date/Time: Saturday, April 30, 2016 01:00 - CONCLUSION: No additional bony abnormality. Noe Rodas MD Chest X-Ray 04/30/16 0028 Signed Impressions: Service Date/Time: Saturday, April 30, 2016 00:48 - CONCLUSION: 1. Focal masslike area of opacity again noted in the right midlung without significant change. 2. No new infiltrates or effusions. 3. Chronic scarring. Neo Rodas MD Head CT 04/30/16 0000 Signed Impressions: Service Date/Time: Saturday, April 30, 2016 06:33 - CONCLUSION: Stable noncontrast head CT with no evidence of hemorrhage or stroke. Noe Rodas MD Chest CT 04/30/16 0000 Signed Impressions: Service Date/Time: Saturday, April 30, 2016 04:39 - CONCLUSION: 1. Pleural-based masslike area of consolidative opacity in the posterior right upper lobe. 2. A small hiatal hernia. 3. Coronary artery calcifications. Noe Rodas MD Objective Remarks GENERAL: This is a well-nourished, well-developed patient, in no apparent distress. CARDIOVASCULAR: Regular rate and rhythm without murmurs, gallops, or rubs. RESPIRATORY: Clear to auscultation. Breath sounds equal bilaterally. No wheezes , rales, or rhonchi. GASTROINTESTINAL: Abdomen soft, non-tender, nondistended. Normal active bowel sounds MUSCULOSKELETAL: Extremities without clubbing, cyanosis, or edema. Left hip tender to palpation. NEURO: No gross deficits. PSYCH: Mood and affect appropriate. Medications and IVs Current Medications Medications (Trade) Dose Ordered Sig/Sergey Route Start Time Stop Time Status Last Admin (NS Flush) 2 ml UNSCH PRN FLUSH 04/30/16 04:15 (NS Flush) 2 ml BID FLUSH 04/30/16 09:00 05/07/16 08:36 (Tylenol) 650 mg Q4H PRN PO 04/30/16 04:15 (Dulcolax Supp) 10 mg DAILY PRN [place] 04/30/16 04:15 (Milk Of Magnesia Liq) 30 ml Q12H PRN PO 04/30/16 04:15 05/05/16 08:36 (Lipitor) 20 mg HS PO 04/30/16 21:00 05/06/16 20:13 (Protonix) 20 mg DAILY PO 04/30/16 09:00 05/07/16 08:36 (Morphine Inj) 2 mg Q3H PRN IV PUSH 04/30/16 06:00 Morphine Sulfate 4 mg 4 mg Q3H PRN IV PUSH 04/30/16 06:00 (Lr 1000 ml Inj) 1,000 ml @ 30 mls/hr Q24H IV 04/30/16 07:00 (Lovenox Inj) 30 mg Q24H SQ 05/01/16 13:00 05/06/16 13:06 ([place] 7.5-325 Mg) 1 tab Q4H PRN PO 04/30/16 13:45 05/07/16 11:16 (Morphine Inj) 3 mg Q3H PRN IV PUSH 04/30/16 13:45 (Vitamin D3) 5,000 units DAILY PO 05/01/16 09:00 05/07/16 08:36 (Colace) 100 mg BID PO 05/01/16 09:00 05/07/16 08:36 Al Hydrox/Mg Hydrox/ Simethicone 30 ml 30 ml DAILY PRN PO 05/01/16 08:45 05/06/16 20:12 (Maxipime Inj/NS Inj) 100 ml @ 200 mls/hr Q8H IV 05/04/16 15:00 05/07/16 05:57 A/P Problem List: (1) Closed left hip fracture ICD Code: S72.002A Status: Acute (2) Small cell lung cancer ICD Code: C34.90 Status: Acute (3) Pneumonia ICD Code: J18.9 Status: Acute (4) Bacteremia ICD Code: R78.81 Status: Acute Assessment and Plan Closed left hip fracture Left Femoral Neck fx s/p bipolar hemiarthroplasty. - WBAT, posterior hip precautions, knee brace while in bed. - LMWH. - further management per ortho. Bacteremia 04/30 blood cultures growing pseudomonas stutzeri, staph hominis. - Cefepime Per ID - follow repeat blood cultures. Small cell lung cancer Stable. - outpatient follow up. Nicotine abuse The pt smokes 1 PPD. - cessation instruction. - nicotine patch. PPx: Lovenox. Discharge Planning Awaiting ID clearance. Problem Qualifiers (1) Closed left hip fracture: Qualified Code: S72.002A - Closed left hip fracture, initial encounter Noe Hdz DO May 07, 2016 11:36
[2016-05-07 12:00] VITALS: BP 119/72; PULSE 74; RESP 18; TEMP 97; O2SAT 96
[2016-05-07] MEDS: ENOXAPARIN SODIUM 30 MG/0.3 ML SYRINGE SQ SCH (14:14)
[2016-05-07] MEDS: NICOTINE 21 MG/24 HR PATCH TD SCH (14:14)
[2016-05-07 16:00] VITALS: BP 120/84; PULSE 73; RESP 18; TEMP 98.7; O2SAT 96
[2016-05-07 20:00] VITALS: BP 109/64; PULSE 75; RESP 16; TEMP 97.9; O2SAT 95
[2016-05-07] MEDS: ATORVASTATIN 20 MG TAB PO SCH (22:05)
[2016-05-08] VITALS: BP 107/70; PULSE 76; RESP 16; TEMP 96.6; O2SAT 97
[2016-05-08] MEDS: LACTATED RINGER'S 1000 ML IV SCH ×2 (01:56→21:36)
[2016-05-08] MEDS: ACETAMINOPHEN/HYDROcodone 325 MG/7.5 MG TAB PO PRN ×3 (01:58→18:17)
[2016-05-08] MEDS: CEFEPIME INJ 2,000 MG in SODIUM CHLORIDE 0.9% INJ 100 ML IV SCH ×3 (06:02→21:36)
[2016-05-08] MEDS: DOCUSATE SODIUM 100 MG CAP PO SCH ×2 (07:47→21:35)
[2016-05-08] MEDS: PANTOPRAZOLE SOD 20 MG DELAYED RELEASE TAB PO SCH (07:47)
[2016-05-08] MEDS: SODIUM CHLORIDE 0.9% FLUSH 5 ML FLUSH FLUSH SCH ×2 (07:48→21:35)
[2016-05-08] MEDS: NICOTINE 21 MG/24 HR PATCH TD SCH (07:48)
[2016-05-08] MEDS: CHOLECALCIFEROL (VIT D3) 5000 UNIT CAP PO SCH (07:48)
[2016-05-08] MEDS: REMOVE OLD NICODERM (NICOTINE) PATCH TD SCH (07:48)
[2016-05-08] MEDS: MAGNESIUM HYDROXIDE SUSP 30 ML CUP PO PRN (07:48)
[2016-05-08 08:00] VITALS: BP 95/65; PULSE 76; RESP 20; TEMP 96.3; O2SAT 97
[2016-05-08 12:00] VITALS: BP 91/60; PULSE 82; RESP 20; TEMP 95.1; O2SAT 96
[2016-05-08] MEDS: ENOXAPARIN SODIUM 30 MG/0.3 ML SYRINGE SQ SCH (12:56)
--- NOTE | 2016-05-08 13:32 | HHI.PR ---
Subjective Remarks The patient is resting comfortably in bed. She said she was trying to sleep. She said her family just left. She had no acute complaints. Objective Vitals Vital Signs Date Time Temp Pulse Resp B/P Pulse Ox O2 Delivery O2 Flow Rate FiO2 05/08/16 08:00 96.3 76 20 95/65 97 05/08/16 00:00 96.6 76 16 107/70 97 05/07/16 20:00 97.9 75 16 109/64 95 05/07/16 16:00 98.7 73 18 120/84 96 I/O 05/07/16 05/07/16 05/07/16 05/08/16 05/08/16 05/08/16 07:00 15:00 23:00 07:00 15:00 23:00 Intake Total 240 ml 650 ml 706 ml 360 ml Balance 240 ml 650 ml 706 ml 360 ml Intake Oral 240 ml 650 ml 480 ml 360 ml IV Total 226 ml # Voids 3 3 7 4 # Bowel Movements 0 0 0 0 Result Diagram: 05/05/16 0707 05/05/16 0707 Imaging Last Impressions Hip and Pelvis X-Ray 04/30/16 1339 Signed Impressions: Service Date/Time: Saturday, April 30, 2016 14:29 - CONCLUSION: Good position and alignment on this postoperative study. Raghu Ochoa MD Femur X-Ray 04/30/16 0050 Signed Impressions: Service Date/Time: Saturday, April 30, 2016 01:00 - CONCLUSION: No additional bony abnormality. Noe Rodas MD Chest X-Ray 04/30/16 0028 Signed Impressions: Service Date/Time: Saturday, April 30, 2016 00:48 - CONCLUSION: 1. Focal masslike area of opacity again noted in the right midlung without significant change. 2. No new infiltrates or effusions. 3. Chronic scarring. Noe Rodas MD Head CT 04/30/16 0000 Signed Impressions: Service Date/Time: Saturday, April 30, 2016 06:33 - CONCLUSION: Stable noncontrast head CT with no evidence of hemorrhage or stroke. Noe Rodas MD Chest CT 04/30/16 0000 Signed Impressions: Service Date/Time: Saturday, April 30, 2016 04:39 - CONCLUSION: 1. Pleural-based masslike area of consolidative opacity in the posterior right upper lobe. 2. A small hiatal hernia. 3. Coronary artery calcifications. Noe Rodas MD Objective Remarks GENERAL: This is a well-nourished, well-developed patient, in no apparent distress. CARDIOVASCULAR: Regular rate and rhythm without murmurs, gallops, or rubs. RESPIRATORY: Clear to auscultation. Breath sounds equal bilaterally. No wheezes , rales, or rhonchi. GASTROINTESTINAL: Abdomen soft, non-tender, nondistended. Normal active bowel sounds MUSCULOSKELETAL: Extremities without clubbing, cyanosis, or edema. Left hip tender to palpation. NEURO: No gross deficits. PSYCH: Mood and affect appropriate. Medications and IVs Current Medications Medications (Trade) Dose Ordered Sig/Sergey Route Start Time Stop Time Status Last Admin (NS Flush) 2 ml UNSCH PRN FLUSH 04/30/16 04:15 (NS Flush) 2 ml BID FLUSH 04/30/16 09:00 05/08/16 07:48 (Tylenol) 650 mg Q4H PRN PO 04/30/16 04:15 (Dulcolax Supp) 10 mg DAILY PRN [place] 04/30/16 04:15 (Milk Of Magnesia Liq) 30 ml Q12H PRN PO 04/30/16 04:15 05/08/16 07:48 (Lipitor) 20 mg HS PO 04/30/16 21:00 05/07/16 22:05 Pantoprazole Sodium 20 mg 20 mg DAILY PO 04/30/16 09:00 05/08/16 07:47 (Lr 1000 ml Inj) 1,000 ml @ 30 mls/hr Q24H IV 04/30/16 07:00 (Lovenox Inj) 30 mg Q24H SQ 05/01/16 13:00 05/08/16 12:56 ([place] 7.5-325 Mg) 1 tab Q4H PRN PO 04/30/16 13:45 05/08/16 07:48 (Morphine Inj) 3 mg Q3H PRN IV PUSH 04/30/16 13:45 (Vitamin D3) 5,000 units DAILY PO 05/01/16 09:00 05/08/16 07:48 (Colace) 100 mg BID PO 05/01/16 09:00 05/08/16 07:47 Al Hydrox/Mg Hydrox/ Simethicone 30 ml 30 ml DAILY PRN PO 05/01/16 08:45 05/06/16 20:12 (Maxipime Inj/NS Inj) 100 ml @ 200 mls/hr Q8H IV 05/04/16 15:00 05/08/16 12:56 (Habitrol 21 Mg Patch.24 Hr) 1 patch DAILY TD 05/07/16 11:30 05/08/16 07:48 Miscellaneous Information 1 DAILY TD 05/08/16 09:00 05/08/16 07:48 (Roxicodone) 5 mg Q4H PRN PO 05/08/16 12:30 A/P Problem List: (1) Closed left hip fracture ICD Code: S72.002A Status: Acute (2) Small cell lung cancer ICD Code: C34.90 Status: Acute (3) Pneumonia ICD Code: J18.9 Status: Acute (4) Bacteremia ICD Code: R78.81 Status: Acute Assessment and Plan Closed left hip fracture Left Femoral Neck fx s/p bipolar hemiarthroplasty. - WBAT, posterior hip precautions, knee brace while in bed. - LMWH. - further management per ortho. - Incentive spirometry. Bacteremia 04/30 blood cultures growing pseudomonas stutzeri, staph hominis. - Cefepime Per ID - follow repeat blood cultures. Small cell lung cancer Stable. She still smokes cigarettes. - outpatient follow up. - Smoking cessation instruction. Nicotine abuse The pt smokes 1 PPD. - cessation instruction. - nicotine patch. PPx: Lovenox. Discharge Planning Awaiting ID clearance. Problem Qualifiers (1) Closed left hip fracture: Qualified Code: S72.002A - Closed left hip fracture, initial encounter Noe Hdz DO May 08, 2016 13:32
[2016-05-08 15:17] VITALS: BP 103/70; PULSE 89; RESP 20; TEMP 98.5; O2SAT 96
[2016-05-08 20:10] VITALS: BP 92/62; PULSE 92; RESP 20; TEMP 95.6; O2SAT 96
[2016-05-08] MEDS: ATORVASTATIN 20 MG TAB PO SCH (21:35)
[2016-05-09 00:05] VITALS: BP 102/62; PULSE 77; RESP 18; TEMP 97.6; O2SAT 97
[2016-05-09] MEDS: CEFEPIME INJ 2,000 MG in SODIUM CHLORIDE 0.9% INJ 100 ML IV SCH ×3 (06:10→21:46)
[2016-05-09 07:21] LABS: HEMATOCRIT 30.2 % (35.0-46.0); MEAN CELL VOLUME 81.1 FL (80.0-100.0); MEAN CORPUSCULAR HEMOGLOBIN 28.1 PG (27.0-34.0); MEAN CORPUSCULAR HGB CONC 34.7 % (32.0-36.0); PLATELET COUNT 267 TH/MM3 (150-450); RED BLOOD COUNT 3.73 MIL/MM3 (4.00-5.30); RED CELL DISTRIBUTION WIDTH 15.5 % (11.6-17.2); REVIEW FLAG FINAL; WHITE BLOOD COUNT 5.5 TH/MM3 (4.0-11.0)
[2016-05-09 07:43] LABS: BICARBONATE 26.4 MEQ/L (21.0-32.0); POTASSIUM 3.9 MEQ/L (3.5-5.1)
[2016-05-09 08:00] VITALS: BP 103/69; PULSE 69; RESP 16; TEMP 96.2; O2SAT 100
[2016-05-09] MEDS: PANTOPRAZOLE SOD 20 MG DELAYED RELEASE TAB PO SCH (08:52)
[2016-05-09] MEDS: CHOLECALCIFEROL (VIT D3) 5000 UNIT CAP PO SCH (08:52)
[2016-05-09] MEDS: DOCUSATE SODIUM 100 MG CAP PO SCH ×2 (08:52→21:46)
[2016-05-09] MEDS: REMOVE OLD NICODERM (NICOTINE) PATCH TD SCH (08:52)
[2016-05-09] MEDS: NICOTINE 21 MG/24 HR PATCH TD SCH (08:52)
[2016-05-09] MEDS: SODIUM CHLORIDE 0.9% FLUSH 5 ML FLUSH FLUSH SCH ×2 (08:53→21:00)
[2016-05-09] MEDS: ACETAMINOPHEN/HYDROcodone 325 MG/7.5 MG TAB PO PRN (10:54)
[2016-05-09 12:00] VITALS: BP 112/72; PULSE 79; RESP 16; TEMP 97.3; O2SAT 96
--- NOTE | 2016-05-09 15:08 | HHI.PR ---
Subjective Remarks The patient had no acute complaints and wants to leave the hospital. Discussed with nursing. Objective Vitals Vital Signs Date Time Temp Pulse Resp B/P Pulse Ox O2 Delivery O2 Flow Rate FiO2 05/09/16 12:00 97.3 79 16 112/72 96 05/09/16 08:00 96.2 69 16 103/69 100 05/09/16 07:42 Room Air 05/09/16 00:05 97.6 77 18 102/62 97 05/08/16 20:10 95.6 92 20 92/62 96 05/08/16 15:17 98.5 89 20 103/70 96 I/O 05/08/16 05/08/16 05/08/16 05/09/16 05/09/16 05/09/16 07:00 15:00 23:00 07:00 15:00 23:00 Intake Total 360 ml 480 ml 610 ml 740 ml Output Total 500 ml Balance 360 ml -20 ml 610 ml 740 ml Intake Oral 360 ml 480 ml 480 ml 480 ml IV Total 130 ml 260 ml Output Urine Total 500 ml # Voids 4 2 6 3 # Bowel Movements 0 0 0 Result Diagram: 05/09/16 0624 05/09/16 0624 Imaging Last Impressions Hip and Pelvis X-Ray 04/30/16 1339 Signed Impressions: Service Date/Time: Saturday, April 30, 2016 14:29 - CONCLUSION: Good position and alignment on this postoperative study. Raghu Ochoa MD Femur X-Ray 04/30/16 0050 Signed Impressions: Service Date/Time: Saturday, April 30, 2016 01:00 - CONCLUSION: No additional bony abnormality. Noe Rodas MD Chest X-Ray 04/30/16 0028 Signed Impressions: Service Date/Time: Saturday, April 30, 2016 00:48 - CONCLUSION: 1. Focal masslike area of opacity again noted in the right midlung without significant change. 2. No new infiltrates or effusions. 3. Chronic scarring. Noe Rodas MD Head CT 04/30/16 0000 Signed Impressions: Service Date/Time: Saturday, April 30, 2016 06:33 - CONCLUSION: Stable noncontrast head CT with no evidence of hemorrhage or stroke. Noe Rodas MD Chest CT 04/30/16 0000 Signed Impressions: Service Date/Time: Saturday, April 30, 2016 04:39 - CONCLUSION: 1. Pleural-based masslike area of consolidative opacity in the posterior right upper lobe. 2. A small hiatal hernia. 3. Coronary artery calcifications. Noe Rodas MD Objective Remarks GENERAL: This is a well-nourished, well-developed patient, in no apparent distress. CARDIOVASCULAR: Regular rate and rhythm without murmurs, gallops, or rubs. RESPIRATORY: Clear to auscultation. Breath sounds equal bilaterally. No wheezes , rales, or rhonchi. GASTROINTESTINAL: Abdomen soft, non-tender, nondistended. Normal active bowel sounds MUSCULOSKELETAL: Extremities without clubbing, cyanosis, or edema. Left hip tender to palpation. NEURO: No gross deficits. PSYCH: Mood and affect appropriate. Medications and IVs Current Medications Medications (Trade) Dose Ordered Sig/Sergey Route Start Time Stop Time Status Last Admin (NS Flush) 2 ml UNSCH PRN FLUSH 04/30/16 04:15 (NS Flush) 2 ml BID FLUSH 04/30/16 09:00 05/08/16 21:35 (Tylenol) 650 mg Q4H PRN PO 04/30/16 04:15 (Dulcolax Supp) 10 mg DAILY PRN [place] 04/30/16 04:15 (Milk Of Magnesia Liq) 30 ml Q12H PRN PO 04/30/16 04:15 05/08/16 07:48 (Lipitor) 20 mg HS PO 04/30/16 21:00 05/08/16 21:35 Pantoprazole Sodium 20 mg 20 mg DAILY PO 04/30/16 09:00 05/09/16 08:52 (Lr 1000 ml Inj) 1,000 ml @ 30 mls/hr Q24H IV 04/30/16 07:00 (Lovenox Inj) 30 mg Q24H SQ 05/01/16 13:00 05/08/16 12:56 ([place] 7.5-325 Mg) 1 tab Q4H PRN PO 04/30/16 13:45 05/09/16 10:54 (Morphine Inj) 3 mg Q3H PRN IV PUSH 04/30/16 13:45 (Vitamin D3) 5,000 units DAILY PO 05/01/16 09:00 05/09/16 08:52 (Colace) 100 mg BID PO 05/01/16 09:00 05/09/16 08:52 Al Hydrox/Mg Hydrox/ Simethicone 30 ml 30 ml DAILY PRN PO 05/01/16 08:45 05/06/16 20:12 (Maxipime Inj/NS Inj) 100 ml @ 200 mls/hr Q8H IV 05/04/16 15:00 05/09/16 06:10 (Habitrol 21 Mg Patch.24 Hr) 1 patch DAILY TD 05/07/16 11:30 05/09/16 08:52 Miscellaneous Information 1 DAILY TD 05/08/16 09:00 05/09/16 08:52 (Roxicodone) 5 mg Q4H PRN PO 05/08/16 12:30 A/P Problem List: (1) Closed left hip fracture ICD Code: S72.002A Status: Acute (2) Small cell lung cancer ICD Code: C34.90 Status: Acute (3) Pneumonia ICD Code: J18.9 Status: Acute (4) Bacteremia ICD Code: R78.81 Status: Acute Assessment and Plan Closed left hip fracture Left Femoral Neck fx s/p bipolar hemiarthroplasty. - WBAT, posterior hip precautions, knee brace while in bed. - LMWH. - Outpatient follow-up with orthopedic surgery. - Incentive spirometry. Bacteremia 04/30 blood cultures growing pseudomonas stutzeri, staph hominis. - Cefepime per ID - follow repeat blood cultures. Small cell lung cancer Stable. She still smokes cigarettes. - outpatient follow up. - Smoking cessation instruction. Nicotine abuse The pt smokes 1 PPD. - cessation instruction. - nicotine patch. PPx: Lovenox. Discharge Planning Awaiting ID clearance. Anticipate tomorrow. Problem Qualifiers (1) Closed left hip fracture: Qualified Code: S72.002A - Closed left hip fracture, initial encounter Noe Hdz DO May 09, 2016 15:08
[2016-05-09] MEDS: ENOXAPARIN SODIUM 30 MG/0.3 ML SYRINGE SQ SCH (15:42)
[2016-05-09 16:00] VITALS: BP 82/53; PULSE 84; RESP 20; TEMP 97.3; O2SAT 97
[2016-05-09 20:40] VITALS: BP 115/53; PULSE 71; RESP 18; TEMP 96.1; O2SAT 96
[2016-05-09] MEDS: ATORVASTATIN 20 MG TAB PO SCH (21:45)
[2016-05-09] MEDS: MAGNESIUM HYDROXIDE SUSP 30 ML CUP PO PRN (21:46)
[2016-05-10] VITALS: BP 103/67; PULSE 78; RESP 18; TEMP 95.4; O2SAT 96
[2016-05-10 05:20] LABS: EOSINOPHIL # 0.2 TH/MM3 (0-0.4); EOSINOPHIL % 3.5 % (0.0-4.0); HEMO FLAGS DIFF FINAL; LYMPH % 19.6 % (9.0-44.0); LYMPHOCYTE # 0.9 TH/MM3 (1.0-4.8); MEAN CORPUSCULAR HEMOGLOBIN 28.4 PG (27.0-34.0); MEAN CORPUSCULAR HGB CONC 35.1 % (32.0-36.0); MONO % 13.4 % (0.0-8.0); NEUT % 62.5 % (16.0-70.0); PLATELET COUNT 260 TH/MM3 (150-450); RED CELL DISTRIBUTION WIDTH 16.1 % (11.6-17.2); WHITE BLOOD COUNT 4.7 TH/MM3 (4.0-11.0)
[2016-05-10] MEDS: CEFEPIME INJ 2,000 MG in SODIUM CHLORIDE 0.9% INJ 100 ML IV SCH ×2 (06:11→16:05)
[2016-05-10] MEDS: LACTATED RINGER'S 1000 ML IV SCH (06:22)
--- NOTE | 2016-05-10 07:18 | PD.ORT.PN ---
Subjective Subjective Remarks POD 10 s/p left hip bipolar hemiarthroplasty doing well. pain controlled. out of bed yesterday. Objective Vitals Vital Signs Date Time Temp Pulse Resp B/P Pulse Ox O2 Delivery O2 Flow Rate FiO2 05/10/16 00:00 95.4 78 18 103/67 96 05/09/16 20:40 96.1 71 18 115/53 96 05/09/16 16:00 97.3 84 20 82/53 97 05/09/16 12:00 97.3 79 16 112/72 96 05/09/16 08:00 96.2 69 16 103/69 100 05/09/16 07:42 Room Air I/O 05/09/16 05/09/16 05/09/16 05/10/16 05/10/16 05/10/16 07:00 15:00 23:00 07:00 15:00 23:00 Intake Total 740 ml 720 ml 720 ml 480 ml Output Total 450 ml Balance 740 ml 270 ml 720 ml 480 ml Intake Oral 480 ml 720 ml 720 ml 480 ml IV Total 260 ml Output Urine Total 450 ml # Voids 3 3 4 3 # Bowel Movements 0 0 0 Result Diagram: 05/10/16 0429 05/09/16 0624 Imaging Last 24 hours Impressions Femur X-Ray 04/30/16 0050 Signed Impressions: Service Date/Time: Saturday, April 30, 2016 01:00 - CONCLUSION: No additional bony abnormality. Noe Rodas MD Chest X-Ray 04/30/16 0028 Signed Impressions: Service Date/Time: Saturday, April 30, 2016 00:48 - CONCLUSION: 1. Focal masslike area of opacity again noted in the right midlung without significant change. 2. No new infiltrates or effusions. 3. Chronic scarring. Noe Rodas MD Hip and Pelvis X-Ray 04/30/16 0025 Signed Impressions: Service Date/Time: Saturday, April 30, 2016 00:48 - CONCLUSION: Left subcapital hip fracture. Noe Rodas MD Head CT 04/30/16 0000 Signed Impressions: Service Date/Time: Saturday, April 30, 2016 06:33 - CONCLUSION: Stable noncontrast head CT with no evidence of hemorrhage or stroke. Noe Rodas MD Chest CT 04/30/16 0000 Signed Impressions: Service Date/Time: Saturday, April 30, 2016 04:39 - CONCLUSION: 1. Pleural-based masslike area of consolidative opacity in the posterior right upper lobe. 2. A small hiatal hernia. 3. Coronary artery calcifications. Noe Rodas MD Objective Remarks LLE: dressing clean and dry. intact. NVI distally. Assessment & Plan Assessment and Plan 1) Left Femoral Neck fx s/p bipolar hemiarthroplasty - POD 10 -WBAT -posterior hip precautions -knee brace while in bed -daily dressing changes -CM for rehab placement -f/u with Dipesh or [facility] in 1 week Santy Neely May 10, 2016 07:18
[2016-05-10 08:00] VITALS: BP 111/70; PULSE 70; RESP 16; TEMP 96.1; O2SAT 98
[2016-05-10] MEDS: REMOVE OLD NICODERM (NICOTINE) PATCH TD SCH (09:00)
[2016-05-10] MEDS: PANTOPRAZOLE SOD 20 MG DELAYED RELEASE TAB PO SCH (10:16)
[2016-05-10] MEDS: DOCUSATE SODIUM 100 MG CAP PO SCH ×2 (10:16→22:50)
[2016-05-10] MEDS: NICOTINE 21 MG/24 HR PATCH TD SCH (10:16)
[2016-05-10] MEDS: CHOLECALCIFEROL (VIT D3) 5000 UNIT CAP PO SCH (10:16)
--- NOTE | 2016-05-10 10:43 | HHI.PR ---
Subjective Remarks The patient was resting comfortably in bed. She was anxious to leave the hospital. She had no acute complaints. Discussed with nursing. Objective Vitals Vital Signs Date Time Temp Pulse Resp B/P Pulse Ox O2 Delivery O2 Flow Rate FiO2 05/10/16 08:00 96.1 70 16 111/70 98 05/10/16 07:39 Room Air 05/10/16 00:00 95.4 78 18 103/67 96 05/09/16 20:40 96.1 71 18 115/53 96 05/09/16 16:00 97.3 84 20 82/53 97 05/09/16 12:00 97.3 79 16 112/72 96 I/O 05/09/16 05/09/16 05/09/16 05/10/16 05/10/16 05/10/16 07:00 15:00 23:00 07:00 15:00 23:00 Intake Total 740 ml 720 ml 720 ml 480 ml Output Total 450 ml Balance 740 ml 270 ml 720 ml 480 ml Intake Oral 480 ml 720 ml 720 ml 480 ml IV Total 260 ml Output Urine Total 450 ml # Voids 3 3 4 3 # Bowel Movements 0 0 0 Result Diagram: 05/10/16 0429 05/09/16 0624 Imaging Last Impressions Hip and Pelvis X-Ray 04/30/16 1339 Signed Impressions: Service Date/Time: Saturday, April 30, 2016 14:29 - CONCLUSION: Good position and alignment on this postoperative study. Raghu Ochoa MD Femur X-Ray 04/30/16 0050 Signed Impressions: Service Date/Time: Saturday, April 30, 2016 01:00 - CONCLUSION: No additional bony abnormality. Noe Rodas MD Chest X-Ray 04/30/16 0028 Signed Impressions: Service Date/Time: Saturday, April 30, 2016 00:48 - CONCLUSION: 1. Focal masslike area of opacity again noted in the right midlung without significant change. 2. No new infiltrates or effusions. 3. Chronic scarring. Noe Rodas MD Head CT 04/30/16 0000 Signed Impressions: Service Date/Time: Saturday, April 30, 2016 06:33 - CONCLUSION: Stable noncontrast head CT with no evidence of hemorrhage or stroke. Noe oRdas MD Chest CT 04/30/16 0000 Signed Impressions: Service Date/Time: Saturday, April 30, 2016 04:39 - CONCLUSION: 1. Pleural-based masslike area of consolidative opacity in the posterior right upper lobe. 2. A small hiatal hernia. 3. Coronary artery calcifications. Noe Rodas MD Objective Remarks GENERAL: This is a well-nourished, well-developed patient, in no apparent distress. CARDIOVASCULAR: Regular rate and rhythm without murmurs, gallops, or rubs. RESPIRATORY: Clear to auscultation. Breath sounds equal bilaterally. No wheezes , rales, or rhonchi. GASTROINTESTINAL: Abdomen soft, non-tender, nondistended. Normal active bowel sounds MUSCULOSKELETAL: Extremities without clubbing, cyanosis, or edema. Left hip tender to palpation. NEURO: No gross deficits. PSYCH: Mood and affect appropriate. Procedures Left hip repair. Medications and IVs Current Medications Medications (Trade) Dose Ordered Sig/Sergey Route Start Time Stop Time Status Last Admin (NS Flush) 2 ml UNSCH PRN FLUSH 04/30/16 04:15 (NS Flush) 2 ml BID FLUSH 04/30/16 09:00 05/09/16 21:00 (Tylenol) 650 mg Q4H PRN PO 04/30/16 04:15 (Dulcolax Supp) 10 mg DAILY PRN [place] 04/30/16 04:15 (Milk Of Magnesia Liq) 30 ml Q12H PRN PO 04/30/16 04:15 05/09/16 21:46 (Lipitor) 20 mg HS PO 04/30/16 21:00 05/09/16 21:45 Pantoprazole Sodium 20 mg 20 mg DAILY PO 04/30/16 09:00 05/10/16 10:16 (Lr 1000 ml Inj) 1,000 ml @ 30 mls/hr Q24H IV 04/30/16 07:00 (Lovenox Inj) 30 mg Q24H SQ 05/01/16 13:00 05/09/16 15:42 ([place] 7.5-325 Mg) 1 tab Q4H PRN PO 04/30/16 13:45 05/09/16 10:54 (Morphine Inj) 3 mg Q3H PRN IV PUSH 04/30/16 13:45 (Vitamin D3) 5,000 units DAILY PO 05/01/16 09:00 05/10/16 10:16 (Colace) 100 mg BID PO 05/01/16 09:00 05/10/16 10:16 Al Hydrox/Mg Hydrox/ Simethicone 30 ml 30 ml DAILY PRN PO 05/01/16 08:45 05/06/16 20:12 (Maxipime Inj/NS Inj) 100 ml @ 200 mls/hr Q8H IV 05/04/16 15:00 05/10/16 06:11 (Habitrol 21 Mg Patch.24 Hr) 1 patch DAILY TD 05/07/16 11:30 05/10/16 10:16 Miscellaneous Information 1 DAILY TD 05/08/16 09:00 05/10/16 09:00 (Roxicodone) 5 mg Q4H PRN PO 05/08/16 12:30 A/P Problem List: (1) Closed left hip fracture ICD Code: S72.002A Status: Acute (2) Small cell lung cancer ICD Code: C34.90 Status: Acute (3) Pneumonia ICD Code: J18.9 Status: Acute (4) Bacteremia ICD Code: R78.81 Status: Acute Assessment and Plan Closed left hip fracture Left femoral neck fx s/p bipolar hemiarthroplasty. - WBAT, posterior hip precautions, knee brace while in bed. - LMWH. - Outpatient follow-up with orthopedic surgery in one week. - Incentive spirometry. Bacteremia 04/30 blood cultures growing pseudomonas stutzeri, staph hominis. - On cefepime. Discussed with ID, they will re-evaluate today and make final recommendations. - follow repeat blood cultures. No growth. Small cell lung cancer Stable. She still smokes cigarettes. - outpatient follow up. - Smoking cessation instruction. Nicotine abuse The pt smokes 1 PPD. - cessation instruction. - nicotine patch upon discharge. PPx: Lovenox. Discharge Planning Awaiting ID clearance and bed availability. Anticipate later today. Problem Qualifiers (1) Closed left hip fracture: Qualified Code: S72.002A - Closed left hip fracture, initial encounter Noe Hdz DO May 10, 2016 10:43
[2016-05-10] MEDS ORDERED: NICO21DI2 TD (10:45)
--- NOTE | 2016-05-10 10:46 | HHI.DCPOC ---
Discharge Care Plan Diagnosis: (1) Weakness (2) Tobacco abuse (3) Closed left hip fracture (4) Bacteremia Goals to Promote Your Health * To prevent worsening of your condition and complications * To maintain your health at the optimal level Directions to Meet Your Goals Take your medications as prescribed Follow your dietary instruction Follow activity as directed Keep your appointments as scheduled Take your immunizations and boosters as scheduled If your symptoms worsen call your PCP, if no PCP go to Urgent Care Center or Emergency Room Smoking is Dangerous to Your Health. Avoid second hand smoke Call the 24-hour hour crisis hotline for domestic abuse at Noe Hdz DO May 10, 2016 10:46
[2016-05-10 11:59] VITALS: BP 114/65; PULSE 91; RESP 20; TEMP 96.6; O2SAT 96
[2016-05-10] MEDS: ENOXAPARIN SODIUM 30 MG/0.3 ML SYRINGE SQ SCH (12:21)
[2016-05-10 16:00] VITALS: BP 108/62; PULSE 78; RESP 20; TEMP 95.4; O2SAT 98
[2016-05-10] MEDS: SODIUM CHLORIDE 0.9% FLUSH 5 ML FLUSH FLUSH SCH ×2 (16:05→22:50)
--- NOTE | 2016-05-10 16:37 | HHI.IDPN ---
Subjective Subjective Remarks no co afebrile On RA No diarrhea no co wants to go to rehab repeat BC negative Antibiotics cefepime Allergies: Coded Allergies: Aspirin (Verified Allergy, Severe, GASTRIC UPSET, 04/30/16) Objective . Vital Signs Date Time Temp Pulse Resp B/P Pulse Ox O2 Delivery O2 Flow Rate FiO2 05/10/16 16:00 95.4 78 20 108/62 98 05/10/16 11:59 96.6 91 20 114/65 96 05/10/16 08:00 96.1 70 16 111/70 98 05/10/16 07:39 Room Air 05/10/16 00:00 95.4 78 18 103/67 96 05/09/16 20:40 96.1 71 18 115/53 96 05/09/16 05/09/16 05/10/16 15:00 23:00 07:00 Intake Total 720 ml 720 ml 480 ml Output Total 450 ml Balance 270 ml 720 ml 480 ml Intake Oral 720 ml 720 ml 480 ml Output Urine Total 450 ml # Voids 3 4 3 # Bowel Movements 0 0 . Laboratory Tests Test 05/09/16 05/10/16 06:24 04:29 White Blood Count 5.5 TH/MM3 4.7 TH/MM3 Red Blood Count 3.73 MIL/MM3 3.70 MIL/MM3 Hemoglobin 10.5 GM/DL 10.5 GM/DL Hematocrit 30.2 % 30.0 % Mean Corpuscular Volume 81.1 FL 81.0 FL Mean Corpuscular Hemoglobin 28.1 PG 28.4 PG Mean Corpuscular Hemoglobin 34.7 % 35.1 % Concent Red Cell Distribution Width 15.5 % 16.1 % Platelet Count 267 TH/MM3 260 TH/MM3 Mean Platelet Volume 7.1 FL 7.1 FL Neutrophils (%) (Auto) 62.5 % Lymphocytes (%) (Auto) 19.6 % Monocytes (%) (Auto) 13.4 % Eosinophils (%) (Auto) 3.5 % Basophils (%) (Auto) 1.0 % Neutrophils # (Auto) 3.0 TH/MM3 Lymphocytes # (Auto) 0.9 TH/MM3 Monocytes # (Auto) 0.6 TH/MM3 Eosinophils # (Auto) 0.2 TH/MM3 Basophils # (Auto) 0.0 TH/MM3 CBC Comment DIFF FINAL Differential Comment Laboratory Tests Test 05/09/16 06:24 Sodium Level 132 MEQ/L Potassium Level 3.9 MEQ/L Chloride Level 96 MEQ/L Carbon Dioxide Level 26.4 MEQ/L Anion Gap 10 MEQ/L Blood Urea Nitrogen 13 MG/DL Creatinine 0.50 MG/DL Estimat Glomerular Filtration 121 ML/MIN Rate Random Glucose 87 MG/DL Calcium Level 8.4 MG/DL Magnesium Level 2.0 MG/DL Imaging Last Impressions Hip and Pelvis X-Ray 04/30/16 1339 Signed Impressions: Service Date/Time: Saturday, April 30, 2016 14:29 - CONCLUSION: Good position and alignment on this postoperative study. Raghu Ochoa MD Femur X-Ray 04/30/16 0050 Signed Impressions: Service Date/Time: Saturday, April 30, 2016 01:00 - CONCLUSION: No additional bony abnormality. Noe Rodas MD Chest X-Ray 04/30/16 0028 Signed Impressions: Service Date/Time: Saturday, April 30, 2016 00:48 - CONCLUSION: 1. Focal masslike area of opacity again noted in the right midlung without significant change. 2. No new infiltrates or effusions. 3. Chronic scarring. Noe Rodas MD Head CT 04/30/16 0000 Signed Impressions: Service Date/Time: Saturday, April 30, 2016 06:33 - CONCLUSION: Stable noncontrast head CT with no evidence of hemorrhage or stroke. Noe Rodas MD Chest CT 04/30/16 0000 Signed Impressions: Service Date/Time: Saturday, April 30, 2016 04:39 - CONCLUSION: 1. Pleural-based masslike area of consolidative opacity in the posterior right upper lobe. 2. A small hiatal hernia. 3. Coronary artery calcifications. Noe Rodas MD Physical Exam CONSTITUTIONAL/GENERAL: This is an adequately nourished patient, in no apparent distress. SKIN: No jaundice, rashes, or lesions. EYES: No scleral icterus. ENT: Hearing markedly decreased (baseline). . Poor dentition CARDIOVASCULAR: Regular rate and rhythm without murmurs, gallops, or rubs. No JVD. Peripheral pulses symmetric. RESPIRATORY/CHEST: Symmetric, unlabored respirations. Clear to auscultation. Breath sounds equal bilaterally. GASTROINTESTINAL: Abdomen soft, non-tender, nondistended. No hepato-splenomegaly , or palpable masses. MUSCULOSKELETAL: Extremities without clubbing, cyanosis, or edema. NEUROLOGICAL: fully awake and alert. POARCH. Follows commands PSYCHIATRIC: No obvious anxiety/depression. no apparent hallucinations or other psychotic thought process. Assessment & Plan Remarks Gram negative bacteremia,PSEUDOMONAS STUTZERI ? source - pulmonary vs urinary - repeat BC negative - completed 10 days of abx staph hominis bacteremia - doubrt clinical significance - sensitivity profile is different by 3 positions (clinda, TS. tetracycline) , clearly different strains Lung ca Tobaccoism - dc cefepime - give Levaquine 750 mg x 4 more days Iza Doss MD May 10, 2016 16:37
[2016-05-10 20:00] VITALS: BP 113/69; PULSE 75; RESP 16; TEMP 97.6; O2SAT 98
[2016-05-10] MEDS: ATORVASTATIN 20 MG TAB PO SCH (22:50)
[2016-05-10] MEDS: ACETAMINOPHEN/HYDROcodone 325 MG/7.5 MG TAB PO PRN (23:26)
[2016-05-11] VITALS: BP 118/72; PULSE 78; RESP 16; TEMP 98.6; O2SAT 96
[2016-05-11] MEDS: LACTATED RINGER'S 1000 ML IV SCH (07:00)
[2016-05-11 08:00] VITALS: BP 108/61; PULSE 66; RESP 18; TEMP 96; O2SAT 97
[2016-05-11] MEDS: SODIUM CHLORIDE 0.9% FLUSH 5 ML FLUSH FLUSH SCH (08:35)
[2016-05-11] MEDS: PANTOPRAZOLE SOD 20 MG DELAYED RELEASE TAB PO SCH (08:35)
[2016-05-11] MEDS: CHOLECALCIFEROL (VIT D3) 5000 UNIT CAP PO SCH (08:35)
[2016-05-11] MEDS: DOCUSATE SODIUM 100 MG CAP PO SCH (08:35)
[2016-05-11] MEDS: REMOVE OLD NICODERM (NICOTINE) PATCH TD SCH (08:35)
[2016-05-11] MEDS: NICOTINE 21 MG/24 HR PATCH TD SCH (08:35)
[2016-05-11] MEDS ORDERED: LEVA750T PO (09:11)
--- NOTE | 2016-05-11 09:17 | HHI.DS ---
Discharge Summary Admission Date Apr 30, 2016 at 01:53 Discharge Date: May 11, 2016 Admitting Diagnosis Left hip fracture (1) Closed left hip fracture ICD Code: S72.002A Diagnosis: Principal (2) Small cell lung cancer ICD Code: C34.90 (3) Pneumonia ICD Code: J18.9 (4) Bacteremia ICD Code: R78.81 Diagnosis: Principal Procedures Left hip repair. Brief History - From Admission This is a 70-year-old female with past medical history significant for lung cancer status post chemotherapy and radiation therapy. Patient presents after a syncopal episode. Patient states she was getting out of her car when she stood up, felt dizzy and then fell backwards. The patient denies LOC, denies hitting her head. Apparently the patient got out of the vehicle, tender to shut the door when she lost her balance and the backwards and have any median 10 /10 over her left hip. The patient reports severe left hip pain and is unable to move it. Moving the extremity makes it worst, IV morphine given by emergency physicians improves the pain. Patient is noted to be coughing but denies fevers or chills. The patient also denies diarrhea, chest pain, shortness of breath. Patient is somewhat lethargic at the moment of interview. The patient states she feels somewhat nauseous and denied any urinary symptoms. CBC/BMP: 05/10/16 0429 05/09/16 0624 Significant Findings Laboratory Tests Test 05/09/16 05/10/16 06:24 04:29 Red Blood Count 3.73 MIL/MM3 3.70 MIL/MM3 (4.00-5.30) (4.00-5.30) Hemoglobin 10.5 GM/DL 10.5 GM/DL (11.6-15.3) (11.6-15.3) Hematocrit 30.2 % 30.0 % (35.0-46.0) (35.0-46.0) Sodium Level 132 MEQ/L (136-145) Chloride Level 96 MEQ/L (98-107) Calcium Level 8.4 MG/DL (8.5-10.1) Monocytes (%) (Auto) 13.4 % (0.0-8.0) Lymphocytes # (Auto) 0.9 TH/MM3 (1.0-4.8) Imaging Last Impressions Hip and Pelvis X-Ray 04/30/16 1339 Signed Impressions: Service Date/Time: Saturday, April 30, 2016 14:29 - CONCLUSION: Good position and alignment on this postoperative study. Raghu Ochoa MD Femur X-Ray 04/30/16 0050 Signed Impressions: Service Date/Time: Saturday, April 30, 2016 01:00 - CONCLUSION: No additional bony abnormality. Noe Rodas MD Chest X-Ray 04/30/16 0028 Signed Impressions: Service Date/Time: Saturday, April 30, 2016 00:48 - CONCLUSION: 1. Focal masslike area of opacity again noted in the right midlung without significant change. 2. No new infiltrates or effusions. 3. Chronic scarring. Noe Rodas MD Head CT 04/30/16 0000 Signed Impressions: Service Date/Time: Saturday, April 30, 2016 06:33 - CONCLUSION: Stable noncontrast head CT with no evidence of hemorrhage or stroke. Noe Rodas MD Chest CT 04/30/16 0000 Signed Impressions: Service Date/Time: Saturday, April 30, 2016 04:39 - CONCLUSION: 1. Pleural-based masslike area of consolidative opacity in the posterior right upper lobe. 2. A small hiatal hernia. 3. Coronary artery calcifications. Noe Rodas MD PE at Discharge GENERAL: This is a well-nourished, well-developed patient, in no apparent distress. CARDIOVASCULAR: Regular rate and rhythm without murmurs, gallops, or rubs. RESPIRATORY: Clear to auscultation. Breath sounds equal bilaterally. No wheezes , rales, or rhonchi. GASTROINTESTINAL: Abdomen soft, non-tender, nondistended. Normal active bowel sounds MUSCULOSKELETAL: Extremities without clubbing, cyanosis, or edema. Left hip tender to palpation. NEURO: No gross deficits. PSYCH: Mood and affect appropriate. Pt update on day of discharge The patient was feeling well. She had no acute complaints. She wanted to go to rehabilitation so that she can go home sooner rather than later. Discussed with nursing. Hospital Course Closed left hip fracture Orthopedic surgery was consulted. Left femoral neck fx s/p bipolar hemiarthroplasty. The pt was WBAT with posterior hip precautions and with knee brace while in bed. She was placed on LMWH. She received pain meds with a bowel regimen. She worked with physical therapy. She received incentive spirometry. She will have outpatient follow-up with orthopedic surgery in one week. She will be discharged on Xarelto per ortho. Bacteremia 04/30 blood cultures growing pseudomonas stutzeri, staph hominis. She was continued on cefepime. Infectious disease was consulted. Repeat blood cultures with no growth. She will complete a course of PO Levaquin. Nicotine abuse The pt smokes 1 PPD. She received cessation instruction. She will be discharged with a nicotine patch upon discharge. Pt Condition on Discharge: Fair Discharge Disposition: Discharge to SNF Discharge Time: > 30 minutes Discharge Instructions DIET: Follow Instructions for: Heart Healthy Diet Activities you can perform: See Additionl Instruction Other Activity Instructions: Per ortho. Follow up Referrals: Orthopedics - 1 Week @ [facility] with Brian Landon MD PCP Follow-up - 1 Week New Orders: UA C+S IF INDICATED - Next Day New Medications: Hydrocodone-Acetaminophen ([place]) 7.5-325 mg Tab 1 TAB PO Q4H PRN PAIN #60 Ref 0 TAB Levofloxacin (Levaquin) 750 Mg Tab 750 MG PO DAILY Infection #4 Ref 0 TAB Rivaroxaban (Xarelto) 10 Mg Tab 10 MG PO DAILY Blood Clot Prevention #21 Ref 0 TAB Walker/Adult/Folding (Walker/Adult/Folding) 1 Mis Mis 1 EA .ROUTE DIRECTED #1 Ref 0 EA Nicotine Patch (Nicotine Patch) 21 Mg/24 Hr Patch 1 PATCH TD DAILY SMOKING #30 PATCH Continued Medications: Atorvastatin (Atorvastatin) 20 Mg Tab 20 MG PO HS Cholesterol Management #30 Ref 6 TAB Calcium Carbonate-Cholecalciferol (Calcium 600 with Vitamin D) 600-400 mg-Unit Tab 1 TAB PO DAILY Calcium Supplement Ref 0 TAB Cholecalciferol (Vitamin D3) 5,000 Unit Tab 5000 UNITS PO DAILY Nutritional Supplement #1 Ref 0 BOTTLE Folic Acid (Folate) 1 Mg Tab 1 MG PO DAILY Nutritional Supplement Ref 0 TAB Furosemide (Lasix) 20 Mg Tab 20 MG PO DAILY PRN swelling #20 Ref 0 TAB Omeprazole (Omeprazole) 20 Mg Cap 1 CAP PO DAILY #30 Ref 6 CAP Potassium Chloride ER (Potassium Chloride ER) 10 Meq Tab 10 MEQ PO DAILY Electrolyte Replacement #14 Ref 0 TAB Noe Hdz DO May 11, 2016 09:17
[2016-05-11] MEDS ORDERED: LEVOFLOXACIN 750 MG TAB PO ONE (10:00)
[2016-05-11] MEDS: ENOXAPARIN SODIUM 30 MG/0.3 ML SYRINGE SQ SCH (12:06)
== END 2016-05-11 12:54 | DRG 469 ==
LOC: NEPC 00:06 → NEDA 01:53 → N06A 06:47
PROVIDERS: ADMIT Hospitalist; ATTEND Hospitalist
PROC: 0SRS0JA Replacement of Left Hip Joint, Femoral Surface with Synthetic Substitute, Uncemented, Open Approach (ICD-10-PCS; principal; 2016-04-30 12:08)
DX: S72.012A Unspecified intracapsular fracture of left femur, initial encounter for closed fracture (principal); J18.9 Pneumonia, unspecified organism; G92 Toxic encephalopathy; J44.9 Chronic obstructive pulmonary disease, unspecified; B96.5 Pseudomonas (aeruginosa) (mallei) (pseudomallei) as the cause of diseases classified elsewhere; E86.0 Dehydration; R78.81 Bacteremia; G95.9 Disease of spinal cord, unspecified; E87.1 Hypo-osmolality and hyponatremia; M35.3 Polymyalgia rheumatica; R11.0 Nausea; W17.89XA Other fall from one level to another, initial encounter; Y93.89 Activity, other specified; Y92.093 Driveway of other non-institutional residence as the place of occurrence of the external cause; K21.9 Gastro-esophageal reflux disease without esophagitis; K44.9 Diaphragmatic hernia without obstruction or gangrene; E78.5 Hyperlipidemia, unspecified; E78.00 Pure hypercholesterolemia, unspecified; F17.210 Nicotine dependence, cigarettes, uncomplicated; M19.90 Unspecified osteoarthritis, unspecified site; Z85.118 Personal history of other malignant neoplasm of bronchus and lung; H91.90 Unspecified hearing loss, unspecified ear; R53.1 Weakness; J45.909 Unspecified asthma, uncomplicated; I95.1 Orthostatic hypotension; R73.9 Hyperglycemia, unspecified; B95.7 Other staphylococcus as the cause of diseases classified elsewhere; Z92.3 Personal history of irradiation; Z92.21 Personal history of antineoplastic chemotherapy; Z87.11 Personal history of peptic ulcer disease; Z80.1 Family history of malignant neoplasm of trachea, bronchus and lung
CPT/HCPCS: 70450; 71010; 71250; 73501; 73502; 73552; 80048; 80053; 81001; 82306; 82948; 83735; 85025; 85027; 85610; 85730; 87040; 87077; 87186; 87205; 87449; 93005; 94150; 94640; 94664; 96361; 96374; 96375; C1776; J0131; J0690; J0692; J1170; J1580; J1650; J1956; J2270; J2405; J2710; J3010; J3370; J7030; J7050; J7120; L1830

== ENCOUNTER 2017-01-30 17:26 | Emergency (ER) | payer MEDICARE, OTHER ==
[~2017-01-30] VITALS: Ht 160 cm; Wt 75.0 kg
[~2017-01-30 17:26] MED LIST changes: -BENA25CA2 PO; +FOLI1TAB4 PO; +WALKER/ADULT/FO1 MIS; -folate
[2017-01-30 17:28] VITALS: BP 139/72; PULSE 71; RESP 18; TEMP 97.9; O2SAT 96
--- NOTE | 2017-01-30 19:28 | PD ---
HPI Chief Complaint: Back/ Neck Pain or Injury Time Seen by Provider: 19:19 Travel History International Travel<30 days: No Contact w/Intl Traveler<30days: No Traveled to known affect area: No History of Present Illness HPI 71-year-old white female presents to the department with complaints of lower back pain. She states that she was in her normal state of health the day before. She states today she had straightened up and tilt her head backwards when she felt a pulling in her lower back. She did not fall to the ground. There was no direct trauma. Patient is complaining of moderate pain to the lower back. Worse on the left side. The pain is worse with bending and movement. There is some relief of remaining still. She denies any acute bowel or bladder changes. No prior history of back problems. She states that she had a hip replacement on the left side one year ago by Dr. Sawyer. She is not taking any medications for pain currently. PFSH Past Medical History Narrative Medical COPD, lung cancer, hypertension, hypercholesterolemia, DJD Arthritis: Yes Asthma: Yes Cancer: Yes (LUNG CA+) Cardiovascular Problems: No High Cholesterol: Yes Chemotherapy: Yes (2012) Chest Pain: No Congestive Heart Failure: No COPD: Yes (BRONCHITIS) Cerebrovascular Accident: No Diabetes: No Diminished Hearing: Yes Endocrine: No Gastrointestinal Disorders: Yes (GERD) GERD: Yes Genitourinary: No Hepatitis: No Hiatal Hernia: No Immune Disorder: No Kidney Stones: No Musculoskeletal: Yes (ARTHRITIS; BACK PROBLEMS) Neurologic: No Psychiatric: No Reproductive: No Respiratory: Yes (PT STATES LUNG MASS; COPD) Migraines: No Radiation Therapy: Yes (2012) Seizures: No Sleep Apnea: No Thyroid Disease: No Ulcer: No Tetanus Vaccination: < 5 Years Past Surgical History Narrative Surgical Left hip replacement Abdominal Surgery: No AICD: No Body Medical Devices: NONE Cardiac Surgery: No Ear Surgery: No Endocrine Surgery: No Eye Surgery: No Genitourinary Surgery: No Gynecologic Surgery: Yes (HYSTERECTOMY WITH OOPHORECTOMY) Hysterectomy: Yes Joint Replacement: No Oral Surgery: No Pacemaker: No Thoracic Surgery: No Other Surgery: Yes Social History Alcohol Use: No Tobacco Use: Yes (1ppd) Substance Use: No Allergies-Medications (Allergen,Severity, Reaction): Coded Allergies: aspirin (Unverified Allergy, Severe, GASTRIC UPSET, 01/30/17) Reported Meds & Prescriptions Reported Meds & Active Scripts Active Miacalcin Nasal [place] (Calcitonin Deposit) 200 Units/Act Soln 1 [place] NASAL DAILY Alternate 1 nare every other day Lortab (Hydrocodone-Acetaminophen) 5-325 Mg Tab 1-2 Tab PO Q4HR PRN Omeprazole 20 Mg Cap 1 Cap PO DAILY Walker/Adult/Folding (Device) 1 Mis Mis 1 Ea .ROUTE DIRECTED Lasix (Furosemide) 20 Mg Tab 20 Mg PO DAILY PRN Atorvastatin (Atorvastatin Calcium) 20 Mg Tab 20 Mg PO HS Potassium Chloride ER (Potassium Chloride) 10 Meq Tab 10 Meq PO DAILY Reported Calcium 600 with Vitamin D (Calcium Carbonate-Cholecalciferol) 600-400 mg-Unit Tab 1 Tab PO DAILY Review of Systems Except as stated in HPI: all other systems reviewed are Neg Physical Exam Narrative GENERAL: Well-developed, well-nourished in no apparent distress. Nontoxic appearing. HEAD: Normocephalic, atraumatic. EYES: Pupils equal round and reactive. Extraocular motions intact. No scleral icterus. No injection or drainage. ENT: Nose clear. Throat without erythema, tonsillar hypertrophy or exudate. Uvula midline. Airway patent. NECK: Trachea midline. Supple, nontender, moves head freely. No central bony tenderness or spasm. CARDIOVASCULAR: Regular rate and rhythm without murmurs, gallops, or rubs. RESPIRATORY: Clear to auscultation. Breath sounds equal bilaterally. No wheezes , rales, or rhonchi. GASTROINTESTINAL: Abdomen soft, non-tender, nondistended. No hepato-splenomegaly , or palpable masses. No guarding. EXTREMITIES: No clubbing, cyanosis, or edema. No joint tenderness. BACK: No central bony tenderness to palpation of the dorsal lumbar spine. Patient has left paralumbar muscle tenderness. Bowel spasm. Decreased range of motion. No saddle anesthesia. Neurovascular intact distally. Without deformity. No flank tenderness. Moves slowly with assistance. NEUROLOGICAL: Awake, alert and oriented x 3 .Cranial nerves grossly intact. Motor and sensory grossly within normal limits. Normal speech. Data Data Last Documented VS Vital Signs Date Time Temp Pulse Resp B/P (MAP) Pulse Ox O2 Delivery O2 Flow Rate FiO2 01/30/17 20:46 20 01/30/17 17:28 97.9 71 139/72 (94) 96 Room Air Orders Orders Morphine Inj (Morphine Inj) (01/30/17 19:30) Promethazine Inj (Phenergan Inj) (01/30/17 19:30) Morphine Inj (Morphine Inj) (01/30/17 20:00) Spine, Lumbar - Ltd (Ap & Lat) (01/30/17 20:10) Morphine Inj (Morphine Inj) (01/30/17 21:00) MDM Medical Decision Making Medical Screen Exam Complete: Yes Emergency Medical Condition: Yes Medical Record Reviewed: Yes Interpretation(s) Last 24 hours Impressions Lumbar Spine X-Ray 01/30/172009 Signed Impressions: Service Date/Time: , January 30, 2017 20:34 - CONCLUSION: Mild compression fracture of T12, potentially acute. No subluxation. Rosalio Montalvo MD Differential Diagnosis MDM: High Differential diagnoses: AAA,Fracture, sprain, strain, HNP, nerve or vascular injury, epidural abscess, pilonidal cyst, pyelonephritis, UTI, nephrolithiasis, ureterolithiasis Narrative Course Patient's given Phenergan 25 mg IM and morphine 5 mg IM. X-rays of the lumbar spine. Patient states that her pain is gone down to a [id number] level. X-ray of the lumbar spine reveals a T12 compression fracture. Patient has an additional 4 mg of morphine IM. This is a acute T12 compression fracture Diagnosis Primary Impression: acute T12 compression fracture Patient Instructions: Narcotic given in the ED, General Instructions Additional Instructions: Rest. Ice or heat whichever seems improved her symptoms the best. Lortab and Miacalcin. Follow-up with your primary care doctor in the next 2 days. Follow-up with Dr. Sawyer your orthopedist within 1 week. Return to the ER if any problems. Always usually walker. Med/Other Pt SpecificInfo: Prescription(s) given Scripts Calcitonin (Deposit) Nasal [place] (Miacalcin Nasal [place]) 200 Units/Act Soln 1 SPRAY NASAL DAILY for Oteoporosis, #3.7 ML 0 Refills Alternate 1 nare every other day Prov: Federico Brown MD 01/30/17 Hydrocodone-Acetaminophen (Lortab) 5-325 Mg Tab 1-2 TAB PO Q4HR Y for PAIN, #30 TAB 0 Refills Prov: Federico Brown MD 01/30/17 Disposition: 01 DISCHARGE HOME Condition: Stable Rhett Lerner Jan 30, 2017 19:28
[2017-01-30] MEDS ORDERED: MORPHINE SULFATE 8 MG/ML INJ IV PUSH ONE (19:30)
[2017-01-30] MEDS ORDERED: PROMETHAZINE INJ 25 MG/ML VIAL IM ONE (19:30)
[2017-01-30] MEDS ORDERED: MORPHINE SULFATE 8 MG/ML INJ IM ONE (20:00)
[2017-01-30 20:46] VITALS: RESP 20
--- NOTE | 2017-01-30 20:53 | RADRPT ---
EXAM DATE/TIME: 01/30/2017 20:34 [facility] COMPARISON: MRI LUMBAR SPINE W & W/O CONTRAST, November 19, 2014, 16:31. INDICATIONS : Lower back pain after sitting in car wrong. MEDICAL HISTORY : Carcinoma, lung. SURGICAL HISTORY : Hysterectomy. ENCOUNTER: Initial ACUITY: 1 day PAIN SCORE: 10/10 LOCATION: lumbar FINDINGS: Mild superior endplate compression fracture seen of T12 which I believe is potentially acute. No frac ture seen of the lumbar vertebra. No subluxations. Severe disc space narrowing again noted at L4/L5 CONCLUSION: Mild compression fracture of T12, potentially acute. No subluxation. Rosalio Montalvo MD on January 30, 2017 at 20:50 Board Certified Radiologist. This report was verified electronically.
[2017-01-30] MEDS ORDERED: MORPHINE SULFATE 4 MG/ML INJ IM ONE (21:00)
[2017-01-30] MEDS ORDERED: HYDR-3533 PO (21:21)
[2017-01-30] MEDS ORDERED: MIAC200S NASAL (21:21)
[2017-01-30 22:11] VITALS: BP 125/65
== END 2017-01-30 22:11 | disposition home or self-care (01) ==
LOC: NEPD 17:26
DX: M48.54XA Collapsed vertebra, not elsewhere classified, thoracic region, initial encounter for fracture (principal); J44.9 Chronic obstructive pulmonary disease, unspecified; I10 Essential (primary) hypertension; E78.00 Pure hypercholesterolemia, unspecified; X58.XXXA Exposure to other specified factors, initial encounter; Y93.9 Activity, unspecified; Z72.0 Tobacco use
CPT/HCPCS: 72100; 96372; 99284; J2270; J2550

== ENCOUNTER 2017-02-19 08:14 | Day surgery (SDC) | payer MEDICARE, OTHER ==
[~2017-02-19] VITALS: Ht 160 cm; Wt 71.8 kg
[2017-02-19] VITALS (7 sets, daily range): BP systolic 123–157; BP diastolic 66–88; PULSE 66–95; RESP 16–20; TEMP 97.8–98.2; O2SAT 90–96
[~2017-02-19 08:14] MED LIST changes: -CHOL50008 PO; -FOLI1TAB4 PO; +HYDR-3533 PO; +MIAC200S NASAL
[2017-02-19] MEDS ORDERED: SODIUM CHLOR 0.9% 1000 ML INJ 1,000 ML IV SCH (08:45)
[2017-02-19] MEDS ORDERED: ceFAZolin 2 GM PREMIX 50 ML IV SCH (08:45)
[2017-02-19] MEDS ORDERED: FOLI400T PO (08:56)
[2017-02-19] MEDS ORDERED: ALEV220T14 PO (08:56)
[2017-02-19 09:51] LABS: AUTOMATED NEUTROPHIL # 5.6 TH/MM3 (1.8-7.7); BASOPHIL # 0.1 TH/MM3 (0-0.2); BASOPHIL % 0.8 % (0.0-2.0); EOSINOPHIL # 0.2 TH/MM3 (0-0.4); EOSINOPHIL % 3.1 % (0.0-4.0); HEMATOCRIT 39.4 % (35.0-46.0); LYMPH % 15.3 % (9.0-44.0); LYMPHOCYTE # 1.2 TH/MM3 (1.0-4.8); MEAN CELL VOLUME 83.9 FL (80.0-100.0); MEAN CORPUSCULAR HEMOGLOBIN 28.4 PG (27.0-34.0); MEAN CORPUSCULAR HGB CONC 33.9 % (32.0-36.0); MONO % 8.1 % (0.0-8.0); NEUT % 72.7 % (16.0-70.0); PLATELET COUNT 288 TH/MM3 (150-450); RED CELL DISTRIBUTION WIDTH 15.7 % (11.6-17.2); WHITE BLOOD COUNT 7.8 TH/MM3 (4.0-11.0)
[2017-02-19 09:54] LABS: APTT (PATIENT) 30.2 SEC (24.3-30.1); INTERNATIONAL NORMALIZED RATIO 0.9 RATIO; PROTHROMBIN TIME - PATIENT 10.4 SEC (9.8-11.6)
[2017-02-19 09:55] LABS: HEMO FLAGS AUTO DIFF
[2017-02-19 10:01] LABS: BICARBONATE 23.7 MEQ/L (21.0-32.0); POTASSIUM 4.1 MEQ/L (3.5-5.1)
[2017-02-19 10:29] LABS: PLATELET ESTIMATE SMEAR NORMAL (NORMAL); PLATELET MORPHOLOGY NORMAL (NORMAL); SCAN/DIFF AUTO DIFF CONFIRMED
[2017-02-19] MEDS ORDERED: MIDAZOLAM HCL 5 MG/5 ML VIAL ONE (10:33)
[2017-02-19] MEDS ORDERED: BUPIVACAINE HCL PF 0.75% 30 ML VIAL ONE (10:49)
--- NOTE | 2017-02-19 11:53 | PD.RAD ---
Post Procedure Progress Note Pre Procedure Diagnosis: (1) Vertebral compression fracture (2) Osteoporosis Post Procedure Diagnosis: (1) Osteoporosis (2) Vertebral compression fracture Procedure Date: Feb 19, 2017 Supervising Radiologist: Bin Francis JR Proceduralist/Assist: Guy Alcazar, RT(R), Daniel Astorga RT(R) Anesthesia: Conscious Sedation Plan of Activity Patient to Unit: ROPU Patient Condition: Good See PACS Report for procedural detail/treatment Spinal Procedure Kyphoplasty L1 Findings: Successful L1 kyphoplasty. Nice result. Plan F/U with IR in 2-3 weeks. Call sooner if any problems. Jr. Tito,Bin Marsh MD Feb 19, 2017 11:53
--- NOTE | 2017-02-19 12:35 | RADRPT ---
EXAM DATE/TIME: 02/19/2017 10:51 [facility] COMPARISON: No previous studies available for comparison. INDICATIONS : <<Patient presents with a compression fracture of L1. Patient has lifestyle limiting pain. Failed med ical management. MEDICAL HISTORY : <<COPD Lung Cancer Hypertension DJD>> SURGICAL HISTORY : <<Left Hip Replacement Hysterectomy with Oophorectomy>> ENCOUNTER: Initial ACUITY: 1 month PAIN SCORE: 0/10 LOCATION: <<NA>> FLUORO TIME: <<8.7>> minutes IMAGE SERIES: 3 SEDATION TIME: <<30>> minutes LEVEL: L1 1.) <<2.5>> mg midazolam (Versed) IV 2.) <<125>> mcg fentanyl (Sublimaze) IV DEVICE: 1. 4 cc AVAMax bone cement PROCEDURE : 1. Fluoroscopically-guided kyphoplasty. 2. Conscious sedation with continuous EKG and oximetry monitoring. The risks, benefits and alternatives to the procedure were explained and verbal and written consent w as obtained. The site was prepped in sterile fashion. Full sterile technique was used, including ca p, mask, sterile gloves and gown and a large sterile sheet. Hand hygiene and 2% chlorhexidine and/or betadine/alcohol prep was utilized per protocol for cutaneous antisepsis. The skin and subcutaneous tissues were infiltrated with local anesthetic solution. With fluoroscopic guidance and utilizing a left unilateral transpedicular approach the L1 vertebral b sam was accessed . Kyphoplasty was performed with cavity creation utilizing a balloon and curved nee dle. The prescribed cement volume was placed. Post procedure images demonstrate cement confined to the vertebral body. Conscious sedation was performed with the prescribed dosages and duration as above in the presence of an independent trained radiology nurse to assist in the monitoring of the patient. EKG and oximetry remained stable throughout the procedure. The patient tolerated the procedure well and there were n o complications. The patient was sent to post anesthesia recovery in stable condition. CONCLUSION: Uncomplicated L1 kyphoplasty as above. Bin Francis Jr., MD on February 19, 2017 at 12:29 Board Certified Radiologist. This report was verified electronically.
== END 2017-02-19 15:15 | disposition home or self-care (01) ==
LOC: HROP 08:14 → HRIP 08:16 → HROP 15:15
PROVIDERS: ATTEND Family Medicine
DX: M48.56XA Collapsed vertebra, not elsewhere classified, lumbar region, initial encounter for fracture (principal); M81.0 Age-related osteoporosis without current pathological fracture; Z85.118 Personal history of other malignant neoplasm of bronchus and lung; I10 Essential (primary) hypertension; J44.9 Chronic obstructive pulmonary disease, unspecified; Z96.642 Presence of left artificial hip joint
CPT/HCPCS: 22514; 80048; 85025; 85610; 85730; 99152; 99153; J0690; J2250; J3010; J7030

== ENCOUNTER 2017-03-05 14:06 | Day surgery (SDC) | payer MEDICARE, OTHER ==
[~2017-03-05 14:06] MED LIST changes: +ALEV220T14 PO; +FOLI400T PO; -FURO1TAB62 PO; -MIAC200S NASAL; -POTA10TA2 PO
== END 2017-03-05 14:55 | disposition home or self-care (01) ==
LOC: HRIP 14:06 → HROP 14:06
PROVIDERS: ATTEND Radiology Body Imaging
DX: S22.089A Unspecified fracture of T11-T12 vertebra, initial encounter for closed fracture (principal)

== ENCOUNTER 2017-07-12 17:33 | Emergency (ER) | payer MEDICARE, MEDICAID ==
[~2017-07-12 17:33] MED LIST changes: -HYDR-3533 PO
[2017-07-12 19:06] VITALS: BP 124/78; PULSE 84; RESP 18; TEMP 98; O2SAT 98
[2017-07-12 21:03] VITALS: BP 133/61; PULSE 75; RESP 16; O2SAT 96
--- NOTE | 2017-07-12 21:10 | PD ---
HPI Chief Complaint: Fall Time Seen by Provider: 20:52 Travel History International Travel<30 days: No Contact w/Intl Traveler<30days: No Traveled to known affect area: No History of Present Illness HPI This is a 71-year-old female with history of lung cancer in remission who follows with oncologist Dr. Marie and her primary care physician appears to be Dr. Mayfield. She presents for evaluation of fall. She reports that today she was ambulating in her home with a walker. She reports that she walked by her motorized chair and then fell. She reports that she has had frequent issues with her balance over the past few months. She reports that when she walks she feels off balance. She currently feels normal. She denies any dizziness, headache, syncope, chest pain, shortness of breath, palpitations, abdominal pain , nausea or vomiting, fevers or chills. She reports chronic back pain but denies any acute injury from the fall. She lives with her son. She has no other complaints at this time. [facility] Past Medical History Arthritis: Yes Asthma: Yes Cancer: Yes (LUNG CA+) Cardiovascular Problems: Yes (Cholesterol) High Cholesterol: Yes Chemotherapy: Yes (2012) Chest Pain: No Congestive Heart Failure: No COPD: Yes (BRONCHITIS) Cerebrovascular Accident: No Diabetes: No Diminished Hearing: Yes Endocrine: No Gastrointestinal Disorders: Yes (GERD) GERD: Yes Genitourinary: No Hepatitis: No Hiatal Hernia: No Hypertension: Yes Immune Disorder: No Kidney Stones: No Medical other: Yes (SLIGHT [place] RIGHT EAR) Musculoskeletal: Yes (ARTHRITIS; BACK FX) Neurologic: No Psychiatric: No Reproductive: No Respiratory: Yes (PT STATES LUNG MASS; COPD) Immunizations Current: Yes Migraines: No Radiation Therapy: Yes (2012) Seizures: No Sleep Apnea: No Thyroid Disease: No Ulcer: No ?: Not Past Surgical History Surgical History: No Previous Surgery Abdominal Surgery: No AICD: No Body Medical Devices: NONE Cardiac Surgery: No Ear Surgery: No Endocrine Surgery: No Eye Surgery: No Genitourinary Surgery: No Gynecologic Surgery: Yes (HYSTERECTOMY WITH OOPHORECTOMY) Hysterectomy: Yes Joint Replacement: No Oral Surgery: No Pacemaker: No Thoracic Surgery: No Other Surgery: Yes Social History Alcohol Use: No Tobacco Use: Yes (one pack) Substance Use: No Allergies-Medications (Allergen,Severity, Reaction): Coded Allergies: aspirin (Unverified Allergy, Severe, GASTRIC UPSET, 07/12/17) Reported Meds & Prescriptions Reported Meds & Active Scripts Active Macrobid (Nitrofurantoin Monohydrate Macrocrystals) 100 Mg Capsule 100 Mg PO BID 7 Days Omeprazole 20 Mg Cap 1 Cap PO DAILY Walker/Adult/Folding (Device) 1 Mis Mis 1 Ea .ROUTE DIRECTED Atorvastatin (Atorvastatin Calcium) 20 Mg Tab 20 Mg PO HS Reported Folic Acid 0.4 Mg Tab 400 Mcg PO DAILY Aleve Arthritis (Naproxen Sodium) 220 Mg Tab 220 Mg PO BID Calcium 600 with Vitamin D (Calcium Carbonate-Cholecalciferol) 600-400 mg-Unit Tab 1 Tab PO DAILY Review of Systems Except as stated in HPI: all other systems reviewed are Neg Physical Exam Narrative GENERAL: Elderly female who is in no acute distress SKIN: Warm and dry. HEAD: Atraumatic. Normocephalic. EYES: Pupils equal and round. No scleral icterus. No injection or drainage. ENT: No nasal bleeding or discharge. Mucous membranes pink and moist. NECK: Trachea midline. No JVD. CARDIOVASCULAR: Regular rate and rhythm. No murmur appreciated. RESPIRATORY: No accessory muscle use. Clear to auscultation. Breath sounds equal bilaterally. GASTROINTESTINAL: Abdomen soft, non-tender, nondistended. Hepatic and splenic margins not palpable. MUSCULOSKELETAL: No obvious deformities. No clubbing. No cyanosis. No edema. NEUROLOGICAL: Awake and alert. No obvious cranial nerve deficits. Motor grossly within normal limits. Normal speech. Normal finger to nose, heel to jones bilaterally. PSYCHIATRIC: Appropriate mood and affect; insight and judgment normal. Data Data Last Documented VS Vital Signs Date Time Temp Pulse Resp B/P (MAP) Pulse Ox O2 Delivery O2 Flow Rate FiO2 07/12/17 21:03 75 16 133/61 (85) 96 Room Air 07/12/17 19:06 98.0 Orders Orders Electrocardiogram (07/12/17 21:07) Basic Metabolic Panel (Bmp) (07/12/17 21:07) Complete Blood Count With Diff (07/12/17 21:07) Magnesium (Mg) (07/12/17 21:07) Urinalysis - C+S If Indicated (07/12/17 21:07) Ct Brain W/O Iv Contrast(Rout) (07/12/17 21:07) Blood Glucose (3/10/18 21:07) Iv Access Insert/Monitor (07/12/17 21:07) Calcium Carbonate Chew (Tums Chew) (07/12/17 22:15) Sodium Chlor 0.9% 1000 Ml Inj (Ns 1000 M (07/12/17 22:46) Urine Culture (07/12/17 22:55) Ceftriaxone Inj (Rocephin Inj) (07/12/17 23:30) Ed Discharge Order (07/12/17 23:24) Labs Laboratory Tests Test 07/12/17 21:20 07/12/17 22:55 White Blood Count 6.2 TH/MM3 Red Blood Count 4.39 MIL/MM3 Hemoglobin 12.8 GM/DL Hematocrit 35.9 % Mean Corpuscular Volume 81.7 FL Mean Corpuscular Hemoglobin 29.2 PG Mean Corpuscular Hemoglobin Concent 35.8 % Red Cell Distribution Width 14.8 % Platelet Count 313 TH/MM3 Mean Platelet Volume 7.2 FL Neutrophils (%) (Auto) 73.4 % Lymphocytes (%) (Auto) 12.9 % Monocytes (%) (Auto) 12.2 % Eosinophils (%) (Auto) 0.6 % Basophils (%) (Auto) 0.9 % Neutrophils # (Auto) 4.5 TH/MM3 Lymphocytes # (Auto) 0.8 TH/MM3 Monocytes # (Auto) 0.8 TH/MM3 Eosinophils # (Auto) 0.0 TH/MM3 Basophils # (Auto) 0.1 TH/MM3 CBC Comment DIFF FINAL Differential Comment Blood Urea Nitrogen 9 MG/DL Creatinine 0.56 MG/DL Random Glucose 84 MG/DL Calcium Level 8.6 MG/DL Magnesium Level 1.7 MG/DL Sodium Level 127 MEQ/L Potassium Level 4.2 MEQ/L Chloride Level 93 MEQ/L Carbon Dioxide Level 21.1 MEQ/L Anion Gap 13 MEQ/L Estimat Glomerular Filtration Rate 106 ML/MIN Urine Color YELLOW Urine Turbidity HAZY Urine pH 6.5 Urine Specific [place] 1.015 Urine Protein TRACE mg/dL Urine Glucose (UA) NEG mg/dL Urine Ketones NEG mg/dL Urine Occult Blood MOD Urine Nitrite POS Urine Bilirubin NEG Urine Urobilinogen LESS THAN 2.0 MG/DL Urine Leukocyte Esterase LARGE Urine RBC 15 /hpf Urine WBC 27 /hpf Urine Squamous Epithelial Cells 4 /hpf Urine Bacteria MOD /hpf Urine Mucus FEW /lpf Microscopic Urinalysis Comment CULTURE INDICATED MDM Medical Decision Making Medical Screen Exam Complete: Yes Emergency Medical Condition: Yes Medical Record Reviewed: Yes Differential Diagnosis Deconditioning, electrolyte abnormality, CVA, dehydration, UTI, vertigo Narrative Course The patient was placed on ECG monitoring pulse oximetry. A 12-lead EKG was obtained revealing sinus rhythm. Lab work, urinalysis, CT the brain were obtained. Her lab work reveals a sodium of 127 and a chloride of 93, otherwise unremarkable. She was given IV normal saline bolus. Urinalysis is consistent with urinary tract infection with positive nitrites, occult blood, moderate bacteria, large leukocytes, culture pending. The patient was given an IV dose of Rocephin. I suspect that much of her symptoms are secondary to deconditioning although the UTI and mild hyponatremia could be contributing. At this point in time the plan will be to discharge the patient to follow-up with her primary care physician. At the point of discharge her daughters have arrived and are at bedside and I discussed her diagnosis with him. She will be given a dose of Rocephin here and discharged with a prescription for Macrobid. She understands to return for any acutely new or worsening symptoms. She is stable for discharge. Diagnosis Primary Impression: UTI (urinary tract infection) Additional Impression: Hyponatremia Additional Instructions: Stay well hydrated and well-nourished, get plenty of rest. Follow-up closely with primary care physician. Return for any acutely new or worsening symptoms. Med/Other Pt SpecificInfo: Prescription(s) given Scripts Nitrofurantoin Monohydrate Macrocrystals (Macrobid) 100 Mg Capsule 100 MG PO BID for Infection for 7 Days, #14 CAP 0 Refills Prov: Yvan Feldman MD 07/12/17 Disposition: DISCHARGE HOME Condition: Stable Eliecer Aguayo Jul 12, 2017 21:10
[2017-07-12] MEDS ORDERED: CALCIUM CARBONATE 500 MG CHEWABLE TAB CHEW ONE (22:15)
--- NOTE | 2017-07-12 22:18 | RADRPT ---
EXAM DATE/TIME: 07/12/2017 21:48 [facility] COMPARISON: CT BRAIN W/O CONTRAST, April 30, 2016, 6:33. INDICATIONS : Cephalgia. RADIATION DOSE: 56..35 CTDIvol (mGy) MEDICAL HISTORY : Cardiovascular disease. Hypertension. Carcinoma, lung. SURGICAL HISTORY : None. ENCOUNTER: Initial ACUITY: 1 day PAIN SCALE: 4/10 LOCATION: cranial TECHNIQUE: Multiple contiguous axial images were obtained of the head. Using automated exposure control and adj ustment of the mA and/or kV according to patient size, radiation dose was kept as low as reasonably a chievable to obtain optimal diagnostic quality images. DICOM format image data is available electro nically for review and comparison. FINDINGS: CEREBRUM: The ventricles are normal for age. No evidence of midline shift, mass lesion, hemorrhage or acute in farction. No extra-axial fluid collections are seen. POSTERIOR FOSSA: The cerebellum and brainstem are intact. The 4th ventricle is midline. The cerebellopontine angle i s unremarkable. EXTRACRANIAL: The visualized portion of the orbits is intact. SKULL: The calvaria is intact. No evidence of skull fracture. CONCLUSION: 1. No acute findings. Chronic white matter ischemic changes. Rhett Perez MD on July 12, 2017 at 22:14 Board Certified Radiologist. This report was verified electronically.
[2017-07-12 22:23] LABS: AUTOMATED NEUTROPHIL # 4.5 TH/MM3 (1.8-7.7); BASOPHIL # 0.1 TH/MM3 (0-0.2); BASOPHIL % 0.9 % (0.0-2.0); EOSINOPHIL % 0.6 % (0.0-4.0); HEMATOCRIT 35.9 % (35.0-46.0); HEMOGLOBIN 12.8 GM/DL (11.6-15.3); LYMPH % 12.9 % (9.0-44.0); LYMPHOCYTE # 0.8 TH/MM3 (1.0-4.8); MEAN CELL VOLUME 81.7 FL (80.0-100.0); MEAN CORPUSCULAR HEMOGLOBIN 29.2 PG (27.0-34.0); MEAN CORPUSCULAR HGB CONC 35.8 % (32.0-36.0); MEAN PLATELET VOLUME 7.2 FL (7.0-11.0); MONO % 12.2 % (0.0-8.0); MONOCYTE # 0.8 TH/MM3 (0-0.9); NEUT % 73.4 % (16.0-70.0); PLATELET COUNT 313 TH/MM3 (150-450); RED BLOOD COUNT 4.39 MIL/MM3 (4.00-5.30); RED CELL DISTRIBUTION WIDTH 14.8 % (11.6-17.2); WHITE BLOOD COUNT 6.2 TH/MM3 (4.0-11.0)
[2017-07-12 22:33] LABS: BICARBONATE 21.1 MEQ/L (21.0-32.0); CALCIUM 8.6 MG/DL (8.5-10.1); CREATININE 0.56 MG/DL (0.50-1.00); MAGNESIUM 1.7 MG/DL (1.5-2.5)
[2017-07-12] MEDS ORDERED: SODIUM CHLOR 0.9% 1000 ML INJ 1,000 ML IV SCH (22:46)
[2017-07-12 23:16] LABS: BACTERIA, URINE MOD /hpf; BILIRUBIN, URINE NEG (NEG); BLOOD, URINE MOD (NEG); GLUCOSE,URINE NEG (NEG); KETONE, URINE NEG (NEG); MUCUS URINE FEW /lpf (OCC); NITRITE,URINE POS (NEG); PH, URINE 6.5 (5.0-8.5); SQUAMOUS EPITHELIAL CELL URINE 4 /hpf (0-5); URINE COLOR YELLOW (YELLW/STRAW); URINE LEUKOCYTE ESTERASE LARGE (NEG)
[2017-07-12] MEDS ORDERED: MACR100C2 PO (23:24)
[2017-07-12] MEDS ORDERED: cefTRIAXone INJ 1,000 MG in SODIUM CHLORIDE 0.9% INJ 100 ML IV ONE (23:30)
--- NOTE | 2017-07-13 10:10 | EKG ---
Date Performed: 07/12/2017 Time Performed: 22:10:34 PTAGE: 71 years EKG: Sinus rhythm NORMAL ECG No significant change from prior electrocardiogram. PREVIOUS TRACING : 04/30/2016 02.10 DOCTOR: Mitch Dolan Interpretating Date/Time 07/13/2017 10:09:54
== END 2017-07-13 01:06 | disposition home or self-care (01) ==
LOC: NEPD 17:33
DX: N39.0 Urinary tract infection, site not specified (principal); B96.20 Unspecified Escherichia coli [E. coli] as the cause of diseases classified elsewhere; E87.1 Hypo-osmolality and hyponatremia; M19.90 Unspecified osteoarthritis, unspecified site; J45.909 Unspecified asthma, uncomplicated; E78.00 Pure hypercholesterolemia, unspecified; J44.9 Chronic obstructive pulmonary disease, unspecified; F17.200 Nicotine dependence, unspecified, uncomplicated; Z85.118 Personal history of other malignant neoplasm of bronchus and lung
CPT/HCPCS: 70450; 80048; 81001; 83735; 85025; 87077; 87086; 87186; 93005; 96361; 96374; 99285; J0696; J7030

== ENCOUNTER 2018-02-07 14:07 | Observation (INO) ==
--- NOTE | 2018-02-07 14:52 | ED ---
HPI General Chief complaint: Nausea/Vomiting/Diarrhea Stated complaint: Chest pain/vomitting Time Seen by Provider: 02/07/18 14:41 History of Present Illness HPI narrative: The patient was seen and examined in the presence of the nurse. This patient complains of chest pain and discomfort. She has a bit of Alzheimer 's according to family but family members witnessed her grabbing her chest and wincing in discomfort. She is currently pain-free. No history of cardiac disease. She does take acid blocking medication and has occasional heartburn. They thought that this was different. Severity was moderate. No alleviating factors. No exacerbating factors. Duration 3 days Related Data Home Medications Medication Instructions Recorded Confirmed furosemide [Lasix] 20 mg PO DAILY 02/07/18 02/07/18 omeprazole 20 mg PO DAILY 02/07/18 02/07/18 Allergies Allergy/AdvReac Type Severity Reaction Status Date / Time aspirin AdvReac Severe GASTRIC Verified 02/07/18 14:15 UPSET Review of Systems ROS: all other systems reviewed are negative [facility] Medical History Medical History COPD (chronic obstructive pulmonary disease) (Acute) Smoker (Acute) Surgical History Surgical History History of hip surgery (Acute) Social History Social History Substance History: No History of Abuse Second Hand Smoke Exposure: Yes Smoking Status: Current every day smoker Tobacco Type: Cigarettes How Often Do You Have a Drink Containing Alcohol: Never Recent Travel in [facility] within the Last 8 Weeks: No Recent Out of Country Travel within the Last 8 Weeks: No Immunization History Tetanus Immunization: >5 Years Exam Narrative Exam Narrative: GENERAL: Well-nourished, well-developed patient in no apparent distress. SKIN: Focused skin assessment reveals no rash and nodules. Skin is Warm and dry. HEAD: Atraumatic. Normocephalic. EYES: Pupils equal and round. No scleral icterus. No injection or drainage. ENT: No nasal bleeding or discharge. Mucous membranes pink and moist. NECK: Trachea midline. No JVD. CARDIOVASCULAR: Regular rate and rhythm. No murmur appreciated. RESPIRATORY: No accessory muscle use. Clear to auscultation. Breath sounds equal bilaterally. GASTROINTESTINAL: Abdomen soft, non-tender, nondistended. Hepatic and splenic margins not palpable. MUSCULOSKELETAL: No obvious deformities. No clubbing. No cyanosis. No edema. NEUROLOGICAL: Awake and alert. No obvious cranial nerve deficits. Motor grossly within normal limits. Normal speech. PSYCHIATRIC: Appropriate mood and affect; insight and judgment reduced . Course Initial Documented Vital Signs Temperature 97.9 F 02/07/18 14:15 Pulse Rate 69 02/07/18 14:15 Respiratory Rate 16 02/07/18 14:15 Blood Pressure 126/70 02/07/18 14:15 Pulse Oximetry 98 02/07/18 14:15 Last Documented Vital Signs Temperature 97.8 F 02/07/18 18:00 Pulse Rate 75 02/07/18 18:00 Respiratory Rate 16 02/07/18 18:00 Blood Pressure 138/76 02/07/18 18:00 Pulse Oximetry 99 02/07/18 18:00 Medical Decision Making MDM Narrative Medical decision making narrative: This is a 72-year-old female who complains of chest discomfort. I ordered a workup to include labs and EKG and chest x- ray. I also gave her Zofran for nausea. Work appears negative for acute coronary syndrome. She is a bit hyponatremic. She does have suspicious chest symptoms and will be a 23-hour observation in the chest pain center to rule out cardiac cause of her symptoms. Medical Screen Exam Complete: Yes Emergency Medical Condition: Yes Differential Diagnosis Differential Diagnosis: Differential diagnosis includes SC, angina, pericarditis , pleurisy, GERD, anxiety. Medical Records Medical records reviewed: Yes I reviewed the patient's medical records. Lab Data Lab results reviewed: Yes I reviewed the patient's lab results. Lab results narrative: CBC is normal. Metabolic studies show mild hyponatremia. Cardiac enzymes normal Result diagrams: 02/07/18 14:50 02/07/18 14:50 Lab Results 02/07/18 02/07/18 Range/Units 14:50 14:50 WBC 7.3 (4.0-11.0) th/mm3 RBC 4.55 (4.00-5.30) mil/mm3 Hgb 12.1 (11.6-15.3) gm/dL Hct 35.9 (35.0-46.0) % MCV 79.0 L (80.0-100.0) fL MCH 26.6 L (27.0-34.0) pg MCHC 33.7 (32.0-36.0) % RDW 16.2 (11.6-17.2) % Plt Count 307 (150-450) th/mm3 MPV 7.0 (7.0-11.0) fL Neut % (Auto) 74.7 H (16.0-70.0) % Lymph % (Auto) 13.7 (9.0-44.0) % [place] % (Auto) 8.9 H (0.0-8.0) % Eos % (Auto) 2.0 (0.0-4.0) % Baso % (Auto) 0.7 (0.0-2.0) % Neut # (Auto) 5.5 (1.8-7.7) th/mm3 Lymph # (Auto) 1.0 (1.0-4.8) th/mm3 [place] # (Auto) 0.6 (0.0-0.9) th/mm3 Eos # (Auto) 0.1 (0.0-0.4) th/mm3 Baso # (Auto) 0.0 (0.0-0.2) th/mm3 WBC Differential . Differential Comment Auto diff final Sodium 131 L (136-145) meq/L Potassium 3.7 (3.5-5.1) meq/L Chloride 96 L (98-107) meq/L Carbon Dioxide 22.6 (21.0-32.0) meq/L Anion Gap 12 (5-15) meq/L BUN 11 (7-18) mg/dL Creatinine 0.69 (0.50-1.00) mg/dL Estimated GFR 83 L (>89) mL/min Random Glucose 85 (74-106) mg/dL Calcium 8.5 (8.5-10.1) mg/dL Total Bilirubin 0.4 (0.2-1.0) mg/dL AST 14 L (15-37) U/L ALT 12 (10-53) U/L Alkaline Phosphatase 62 (45-117) U/L Total Creatine Kinase 26 (26-192) U/L Troponin I Less than 0.02 L (0.02-0.05) ng/mL Total Protein 7.4 (6.4-8.2) g/dL Albumin 3.3 L (3.4-5.0) g/dL Imaging Data Attestation: I personally reviewed and interpreted this imaging study as follows : My impression: There is a right mid infiltrate. No emergent findings. This is chronic Radiologist's impression: Chest X-Ray 02/07/18 14:44 CONCLUSION: 1. There continues to be parenchymal changes in the right midlung. 2. Otherwise, the rest the lungs are grossly clear. ECG Data EKG Prior to Arrival: No Attestation: I personally reviewed and interpreted this ECG as follows: Prior ECG tracings: not available for review Interpretation: Patient is in sinus rhythm. There are no acute ST elevations. Rate is normal. TX interval and axis are normal. Discharge Plan Discharge Disposition Patient Disposition: 30 Still Patient Discharge Details Diagnosis: Chest pain in adult Physicians Team ED Provider: Akbar Hernandez Primary Care Provider: Markus Seth Rxs /Orders / Referrals /Forms Prescriptions: No Action furosemide [Lasix] 20 mg Tablet 20 mg PO DAILY RF: 0 omeprazole 20 mg Tablet,Delayed Release (Dr/Ec) 20 mg PO DAILY RF: 0 Status ED Status: With Doctor
[2018-02-07 15:08] LABS: Baso % (Auto) 0.7 % (0.0-2.0); Eos # (Auto) 0.1 th/mm3 (0.0-0.4); Hematocrit 35.9 % (35.0-46.0); Hemoglobin 12.1 gm/dL (11.6-15.3); Lymph % (Auto) 13.7 % (9.0-44.0); Mean Corpuscular HGB Conc 33.7 % (32.0-36.0); Mean Corpuscular Hemoglobin 26.6 pg (27.0-34.0); Mono # (Auto) 0.6 th/mm3 (0.0-0.9); Mono % (Auto) 8.9 % (0.0-8.0); Neut # (Auto) 5.5 th/mm3 (1.8-7.7); Neut % (Auto) 74.7 % (16.0-70.0); Platelet Count 307 th/mm3 (150-450); Red Blood Count 4.55 mil/mm3 (4.00-5.30); Red Cell Distribution Width 16.2 % (11.6-17.2); White Blood Count 7.3 th/mm3 (4.0-11.0)
[2018-02-07 15:31] LABS: Alanine Aminotransferase 12 U/L (10-53); Albumin 3.3 g/dL (3.4-5.0); Anion Gap 12 meq/L (5-15); Aspartate Aminotransferase 14 U/L (15-37); Blood Urea Nitrogen 11 mg/dL (7-18); Calcium 8.5 mg/dL (8.5-10.1); Carbon Dioxide 22.6 meq/L (21.0-32.0); Chloride 96 meq/L (98-107); Glomerular Filtration Rate 83 mL/min (>89); Glucose,Random 85 mg/dL (74-106); Potassium 3.7 meq/L (3.5-5.1); Sodium 131 meq/L (136-145)
--- NOTE | 2018-02-07 15:32 | XR ---
EXAM DATE: 02/07/2018 2:44 PM EDT AGE/SEX: 72 years / Female INDICATIONS: Bilateral chest pain. CLINICAL DATA: This is the patient's initial encounter. Patient reports that signs and symptoms have been present for 1 day and indicates a pain score of 5/10. MEDICAL/SURGICAL HISTORY: Chronic obstructive pulmonary disease. Hypercholesterolemia. Small c ell right lung cancer. GERD Asthma, Arthritis. Hysterectomy. Oophorectomy. COMPARISON: [facility], CHEST SINGLE AP, 11/17/2014. [facility], CT CHEST W/ CONTRAST, 11/21/2017. . FINDINGS: There continues to be parenchymal changes in the right midlung. These were noted on patient's prior c hest x-ray from 2014. These findings have recently been evaluated by CT chest from 11/21/2017. Otherwi se, the rest the lung arreguin are clear and well-aerated. No new infiltrates are demonstrated. There a re no pleural effusions or pulmonary edema. The heart size is within normal limits. The bony structur es are intact and stable. CONCLUSION: 1. There continues to be parenchymal changes in the right midlung. 2. Otherwise, the rest the lungs are grossly clear. Electronically signed by: Raghu Ochoa MD 02/07/2018 3:30 PM EDT
[2018-02-07 15:35] LABS: Alkaline Phosphatase 62 U/L (45-117); Total Protein 7.4 g/dL (6.4-8.2)
[2018-02-07 15:37] LABS: Creatine Kinase 26 U/L (26-192)
[2018-02-07 16:41] VITALS: RESP 16
[2018-02-07 20:01] LABS: Creatine Kinase 29 U/L (26-192)
[2018-02-08 00:26] LABS: Creatine Kinase 27 U/L (26-192)
[2018-02-08 04:17] VITALS: TEMP 98
[2018-02-08] MEDS ORDERED: Acetaminophen 500 MG Tablet PO PRN (08:00)
--- NOTE | 2018-02-08 10:16 | P.HPCA ---
History of Present Illness Primary Care Physician: Markus Seth MD Chief Complaint: Epigastric pain History of Present Illness: 72 year old female with history of small cell right lung carcinoma, GERD, and continues to smoke presents to ER for further evaluation of chest pain. Onset 3 days. Location points to midabdominal area with radiation to midsternal area. Characterizes severe burning and belching. Occurs only after eating and drinking. No associated symptoms of nausea or vomiting. Known GERD. Tried taking antacids without relief. 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 ER note reviewed suggested family is concerned of early Alzheimer's disease. Patient provides detailed HPI, information regarding recently re-establishing with a primary care provider after 1-1/2 years this past week due to bilateral leg edema, and lung cancer being in remission. No recent illness, fever, or injury. Lives with son. Has 3 daughters, states all children involved in care. Past cardiac testing None Social history No history of CAD, hypertension, or diabetes. Known hyperlipidemia, unclear why she is not taking atorvastatin any longer. Lifelong smoker, continues to smoke 1 pack/day. No alcohol or recreational drug use. Lives with son. From [place], moved to [place] 2009. Endorses sedentary lifestyle due to "poor strength." Denies sedentary lifestyle to exertional dyspnea. - Diagnosis (1) Atypical chest pain (2) GERD (gastroesophageal reflux disease) (3) History of lung cancer Review of Systems All other systems reviewed negative except as stated in HPI PMFSH - History History Provided By: Patient - Medical History Medical History: Medical History (Last Updated 02/08/18 @ 15:39 by SHAHANA Valdez) Arthritis COPD (chronic obstructive pulmonary disease) GERD (gastroesophageal reflux disease) History of chemotherapy Hyperlipidemia Polymyalgia rheumatica Small cell carcinoma of right lung Smoker - Surgical History Surgical History: Surgical History (Last Updated 02/08/18 @ 15:42 by SHAHANA Valdez) History of bone marrow biopsy History of colonoscopy History of esophagogastroduodenoscopy (EGD) History of hip surgery S/P partial hysterectomy - Social History I have reviewed the patient's Social History: Yes - Tobacco History Second Hand Smoke Exposure: Yes Tobacco Use In Past 30 Days: Yes Smoking Status: Current some day smoker Tobacco Type: Cigarettes Packs Per Day: 1 Years Smoked: 60 - Alcohol History How Often Do You Have a Drink Containing Alcohol: Never - Substance Use History Substance History: No History of Abuse - Travel History Recent Travel in the [place] Within the Last 8 Weeks: No Recent Travel Out of the Country Within the Last 8 Weeks: No - Immunization History Tetanus Immunization: >5 Years Medications and Allergies Active Medications: Active Medications Acetaminophen (Tylenol) 500 mg PO Q4H PRN PRN Reason: HEADACHE Ondansetron HCl (Zofran Inj) 4 mg IV.PUSH Q6H PRN PRN Reason: NAUSEA Pantoprazole Sodium (Protonix) 40 mg PO DAILY [facility] Last Admin: 02/08/18 08:33 Dose: 40 mg Sodium Chloride (Ns Flush) 2 ml IV.FLUSH UNSCH PRN PRN Reason: FLUSH AFTER USING IV ACCESS Last Admin: 02/07/18 14:53 Dose: 2 ml Sodium Chloride (Ns Flush) 2 ml IV.FLUSH BID [facility] Last Admin: 02/08/18 08:34 Dose: 2 ml Sodium Chloride (Ns Flush) 2 ml IV.FLUSH PRN PRN PRN Reason: FLUSH AFTER USING IV ACCESS Allergies Allergy/AdvReac Type Severity Reaction Status Date / Time aspirin AdvReac Severe GASTRIC Verified 02/07/18 14:15 UPSET Home Medications Medication Instructions Recorded Confirmed Type furosemide [Lasix] 20 mg PO DAILY 02/07/18 02/07/18 History omeprazole 20 mg PO DAILY 02/07/18 02/07/18 History Exam Vital signs: Vital Signs 02/07/18 14:15 02/07/18 14:44 02/07/18 14:52 Temperature 97.9 F 97.7 F Pulse Rate 69 71 Respiratory Rate 16 18 Blood Pressure 126/70 124/76 Pulse Oximetry 98 98 98 02/07/18 16:40 02/07/18 18:00 02/07/18 20:00 Temperature 97.7 F 97.8 F 98.2 F Pulse Rate 69 75 83 Respiratory Rate 16 16 16 Blood Pressure 145/70 H 138/76 178/83 H Pulse Oximetry 99 99 94 L 02/08/18 00:00 02/08/18 00:36 02/08/18 04:00 Temperature 98.7 F 98.0 F Pulse Rate 71 70 Respiratory Rate 16 16 Blood Pressure 132/77 131/72 Pulse Oximetry 94 L 94 L 94 L 02/08/18 07:23 02/08/18 08:00 Temperature 98.0 F Pulse Rate 72 Respiratory Rate 16 Blood Pressure 134/62 Pulse Oximetry 92 L 93 L Intake & Output 02/07/18 02/08/18 02/08/18 18:59 06:59 18:59 Output Total 150 / 150 Balance -150 / -150 Weight 68.492 kg 68.54 kg Output: Urine 150 / 150 Other: Date of Last Bowel Movement 02/07/18 02/07/18 Weight On Admission 68.4 kg Narrative: GENERAL: Alert WN, WD, NAD, pleasant, , elderly female who appears older than stated age and chronically ill HEAD: NC, AT NECK: Supple, no masses, trachea midline CV: RRR, without murmur, rub, gallop, no JVD, S1-S2 no S3-S4. No carotid or femoral bruits. Chest wall nontender to palpation. RESP: Diminished lungs throughout bilateral, no crackles, wheeze, or rhonchi, symmetrical chest rise, nonlabored, able to speak in full sentences ABD: Soft, NT, ND, no masses, positive bowel tones EXT: Pulses +1x4, no dependent edema MS: Normal tone x4 extremities, nontender, no obvious deformities, full range of motion NEURO: CN II through CN XII grossly intact, motor strength 5/5 PSYCH: A+O x3, pleasant affect, appropriate speech, mood, insight and judgment SKIN: Normal turgor, dry texture, no lesions, no rashes, sluggish capillary refill, somewhat unkempt Results 02/07/18 14:50 02/07/18 14:50 Cardiac Enzymes 02/07/18 02/07/18 02/07/18 Range/Units 14:50 19:25 23:40 AST 14 L (15-37) U/L Troponin I Less than 0.02 L Less than 0.02 L Less than 0.02 L (0.02-0.05) ng/mL CBC 02/07/18 Range/Units 14:50 WBC 7.3 (4.0-11.0) th/mm3 RBC 4.55 (4.00-5.30) mil/mm3 Hgb 12.1 (11.6-15.3) gm/dL Hct 35.9 (35.0-46.0) % Plt Count 307 (150-450) th/mm3 Neut # (Auto) 5.5 (1.8-7.7) th/mm3 Lymph # (Auto) 1.0 (1.0-4.8) th/mm3 Gem # (Auto) 0.6 (0.0-0.9) th/mm3 Eos # (Auto) 0.1 (0.0-0.4) th/mm3 Baso # (Auto) 0.0 (0.0-0.2) th/mm3 Comprehensive Metabolic Panel 02/07/18 Range/Units 14:50 Sodium 131 L (136-145) meq/L Potassium 3.7 (3.5-5.1) meq/L Chloride 96 L (98-107) meq/L Carbon Dioxide 22.6 (21.0-32.0) meq/L BUN 11 (7-18) mg/dL Creatinine 0.69 (0.50-1.00) mg/dL Calcium 8.5 (8.5-10.1) mg/dL AST 14 L (15-37) U/L ALT 12 (10-53) U/L Alkaline Phosphatase 62 (45-117) U/L Total Protein 7.4 (6.4-8.2) g/dL Albumin 3.3 L (3.4-5.0) g/dL Intake and Output 02/07/18 02/08/18 02/08/18 22:59 06:59 14:59 Output Total 150 / 150 Balance -150 / -150 Output: Urine 150 / 150 Other: Date of Last Bowel Movement 02/07/18 Weight 68.4 kg 68.54 kg Weight On Admission 68.4 kg - Imaging and Cardiology Imaging: Impressions Chest X-Ray 02/07/18 14:44 CONCLUSION: 1. There continues to be parenchymal changes in the right midlung. 2. Otherwise, the rest the lungs are grossly clear. EKG interpretations - EKG EKG results cardiology: sinus rhythm, normal axis, normal QRS, normal ST/T Caprini VTE Risk Assessment Caprini VTE Risk Assessment: Moderate/High Risk (score >= 2) Caprini Risk Assessment Model: Point Value = 1 Point Value = 2 Point Value = 3 Point Value = 5 Age 41-60 Minor surgery BMI > 25 kg/m2 Swollen legs Varicose veins or History of unexplained or recurrent spontaneous Oral contraceptives or hormone replacement Sepsis (< 1 month) Serious lung disease, including pneumonia (< 1 month) Abnormal pulmonary function Acute myocardial infarction Congestive heart failure (< 1 month) History of inflammatory bowel disease Medical patient at bed rest Age 61-74 Arthroscopic surgery Major open surgery (> 45 min) Laparoscopic surgery (> 45 min) Malignancy Confined to bed (> 72 hours) Immobilizing plaster cast Central venous access Age >= 75 History of VTE Family history of VTE Factor V Leiden Prothrombin [id number] Lupus anticoagulant Anticardiolipin antibodies Elevated serum homocysteine Heparin-induced thrombocytopenia Other congenital or acquired thrombophilia Stroke (< 1 month) Elective arthroplasty Hip, pelvis, or leg fracture Acute spinal cord injury (< 1 month) Prophylaxis Regimen: Total Risk Factor Score Risk Level Prophylaxis Regimen 0-1 Low Early ambulation 2 Moderate Order ONE of the following: *Sequential Compression Device (SCD) *Heparin 5000 units SQ BID 3-4 Higher Order ONE of the following medications: *Heparin 5000 units SQ TID *Enoxaparin/Lovenox 40 mg SQ daily (WT < 150 kg, CrCl > 30 mL/min) *Enoxaparin/Lovenox 30 mg SQ daily (WT < 150 kg, CrCl > 10-29 mL/min) *Enoxaparin/Lovenox 30 mg SQ BID (WT < 150 kg, CrCl > 30 mL/min) AND/OR *Sequential Compression Device (SCD) 5 or more Highest Order ONE of the following medications: *Heparin 5000 units SQ TID (Preferred with Epidurals) *Enoxaparin/Lovenox 40 mg SQ daily (WT < 150 kg, CrCl > 30 mL/min) *Enoxaparin/Lovenox 30 mg SQ daily (WT < 150 kg, CrCl > 10-29 mL/min) *Enoxaparin/Lovenox 30 mg SQ BID (WT < 150 kg, CrCl > 30 mL/min) AND *Sequential Compression Device (SCD) Assessment and Plan - Assessment (1) Atypical chest pain Code(s): R07.89 - Other chest pain Status: Acute Plan: Admitted to chest pain center. Ruled out with 3 sets of EKGs and cardiac enzymes. Will be seen and evaluated by Dr. Giuseppe Colon. Symptoms suggestive of acid reflex. Any further need for cardiac testing will be determined after evaluation by arabic translator. (2) GERD (gastroesophageal reflux disease) Code(s): K21.9 - Gastro-esophageal reflux disease without esophagitis Status: Acute Plan: Continue omeprazole. Encouraged follow up with a GI specialist for likely repeat EGD. Add Zantac 150 mg BID to omeprazole. (3) History of lung cancer Code(s): Z85.118 - Personal history of other malignant neoplasm of bronchus and lung Status: Resolved Plan: Keep follow up appointments as previously instructed. H&P: Quality - VTE Deep Vein Thrombosis/Pulmonary Embolism Present on Admission: No (2) GERD (gastroesophageal reflux disease) Qualifiers: Esophagitis presence: esophagitis presence not specified Qualified Code(s): K21.9 - Gastro-esophageal reflux disease without esophagitis
[2018-02-08 12:44] VITALS: BP 124/64; PULSE 78; O2SAT 94
--- NOTE | 2018-02-08 13:51 | ECG ---
Date Performed: 02/07/2018 Time Performed: 22:35:38 PTAGE: 72 years EKG: Sinus rhythm NORMAL ECG PREVIOUS TRACING : 02/07/2018 19.27 Since previous tracing, no significant change noted DOCTOR: Giuseppe Colon Interpretating Date/Time 02/08/2018 13:50:02
--- NOTE | 2018-02-08 13:53 | ECG ---
Date Performed: 02/07/2018 Time Performed: 19:27:09 PTAGE: 72 years EKG: Sinus rhythm NORMAL ECG PREVIOUS TRACING : 02/07/2018 14.26 DOCTOR: Giuseppe Colon Interpretating Date/Time 02/08/2018 13:52:14
--- NOTE | 2018-02-08 13:54 | ECG ---
Date Performed: 02/07/2018 Time Performed: 14:26:17 PTAGE: 72 years EKG: Sinus rhythm NORMAL ECG Since PREVIOUS TRACING , no significant change noted DOCTOR: Giuseppe Colon Interpretating Date/Time 02/09/2018 07:14:26
== END 2018-02-08 14:49 | disposition home or self-care (01) ==
LOC: NEPC 14:07 → NEDA 14:07 → NEPGCP 22:21